=== PATIENT | female | born 1980 | race Two or more races ===

== ENCOUNTER 2022-10-09 10:29 | Outpatient (OUT) | payer BC, SELFPAY ==
--- NOTE | 2022-10-09 10:33 | XR_ITS ---
The [address] [address] Patient Name: AJ RODRÍGUEZ MRN: [id number] date: 1980 Sex: F Assigned Patient Location: [facility] Current Patient Location: Accession/Order Number: [id number] Exam Date: 10/09/2022 10:50 Report Date: 10/10/2022 00:38 At the request of: DEAN GIL Procedure: XR abdomen 1V EXAM: PLAIN FILM OF THE ABDOMEN HISTORY: Abdominal pain. COMPARISON: None. TECHNIQUE: 2 views of the abdomen/pelvis submitted for review. FINDINGS: Lines and Tubes: Clips are seen in the right upper quadrant. Free air: None. The bowel gas pattern is nonobstructive. There are no abnormal calcifications. However, evaluation of the renal shadows is limited due to overlying bowel gas. No portal venous air. Osseous structures do not demonstrate any acute abnormality. XR/XR abdomen 1V IMPRESSION: 1. Nonobstructive bowel gas pattern. 2. Moderate retention of stool. Electronically authenticated by: JANEE HILTON Date: 10/10/2022 00:38
== END 2022-10-09 10:30 | disposition home or self-care (01) ==
LOC: RAD 10:30
PROVIDERS: PCP Family Medicine; Visit Provider Urology
DX: N20.1 Calculus of ureter (principal)
CPT/HCPCS: 74018

== ENCOUNTER 2022-10-20 11:50 | Outpatient (OUT) | payer BC, SELFPAY ==
--- NOTE | 2022-10-20 12:00 | XR_ITS ---
[address] [address] Patient Name: AJ RODRÍGUEZ MRN: [id number] date: 1980 Sex: F Assigned Patient Location: [facility] Current Patient Location: Accession/Order Number: [id number] Exam Date: 10/20/2022 12:05 Report Date: 10/22/2022 07:08 At the request of: DEAN GIL Procedure: XR abdomen 1V Exam: Radiographs: XR abdomen 1V Reason for exam: Kidney Stone Comparison: CT scan dated 04/11/2022 XR/XR abdomen 1V IMPRESSION: No radiographically evident renal, ureteral or bladder calculi. Cholecystectomy. No gas-filled dilated loops of small bowel or colon. No fecal impaction. No gaseous dilation of the stomach. Remainder unremarkable. Electronically authenticated by: OCTAVIO LOPEZ Date: 10/22/2022 07:08
== END 2022-10-20 11:51 | disposition home or self-care (01) ==
LOC: RAD 11:52
PROVIDERS: PCP Family Medicine; Visit Provider Urology
DX: N20.0 Calculus of kidney (principal)
CPT/HCPCS: 74018

== ENCOUNTER 2022-11-03 20:18 | Emergency (ER) | payer BC, SELFPAY ==
[2022-11-03] VITALS (30 sets, daily range): BP systolic 124–170; BP diastolic 76–110; PULSE 63–84; RESP 12–24; TEMP 36.8; O2SAT 97–100; BMI 36.6
--- NOTE | 2022-11-03 20:34 | ECG_ITS ---
The [facility] Test Date: 2022-11-03 Pat Name: AJ RODRÍGUEZ Department: Room: - Gender: Female Benefit Director: : 1980 Requested By: CHAKA CHAIDEZ Order Number: [id number] Reading MD: LEE MCCULLOUGH Measurements Intervals [place] Rate: 75 P: 61 ND: 180 QRS: 71 QRSD: 88 T: 45 QT: 396 QTc: 424 Interpretive Statements 1100 Sinus rhythm 9150 abnormal ECG No previous ECG available for comparison Electronically Signed On 11-04-2022 11:08:46 EDT by LEE MCCULLOUGH
--- NOTE | 2022-11-03 20:35 | ED_ITS ---
Documented by User: EV Escalante 11/03/22 22:10 HPI - Chest Pain General Chief Complaint: Chest Pain Stated Complaint: chest pain Time Seen by Provider: 11/03/22 20:26 Source: patient Mode of arrival: walk-in Limitations: no limitations History of Present Illness HPI narrative: patient is a 42-year-old female presents the emergency department for the evaluation of chest pain that began four hours ago at rest. She states she had a history of myocardial infarction seven years ago, she had a cardiac catheterization at that time which was unremarkable and that her one-year foll ow-up with her multiple drum sander helper it was thought that her symptoms were due to energy drinks or stress. She does not have any stents, she was not found to have any blockages in the heart. She does not follow regularly with cardiology and she was cleared by the multiple drum sander helper. She takes medication for type 2 diabetes, high cholesterol. No medications taken prior to arrival. She states that she developed pain that she describes as a pressure in the anterior chest with radiation to the left posterior shoulder and left arm. Pain is not worse with movement. She denies any injuries or traumas. She states it is hard for her to breathe because of the pressure in her chest but she does not feel winded. She has had no fevers, chills, cough, congestion, peripheral edema. No abdominal pain, vomiting, diarrhea. Risk Factors Coronary artery disease risk factors: diabetes and hyperlipidemia Related Data Home Medications Medication Instructions Recorded Confirmed buspirone 7.5 mg tablet 7.5 mg PO BID 11/03/22 11/03/22 cholecalciferol (vitamin D3) 125 5,000 unit PO DAILY 11/03/22 11/03/22 mcg (5,000 unit) capsule levothyroxine 125 mcg tablet 250 mcg PO DAILY 11/03/22 11/03/22 metformin 500 mg tablet 500 mg PO DAILY 11/03/22 11/03/22 rosuvastatin 10 mg tablet 10 mg PO DAILY 11/03/22 11/03/22 semaglutide 1 mg/dose (4 mg/3 mL) 2 mg subcut .WEEKLY 11/03/22 11/03/22 subcutaneous pen injector (Ozempic) Allergies Allergy/AdvReac Type Severity Reaction Status Date / Time Penicillins Allergy Severe THROAT Verified 11/03/22 20:27 CLOSES Review of Systems ROS Constitutional Denies: fever or chills Cardiovascular Reports: chest pain Respiratory Denies: shortness of breath or cough Gastrointestinal Denies: abdominal pain, nausea or vomiting Musculoskeletal Reports: back pain Integumentary/Breast Denies: rash Neurological Reports: headache PFSH PFSH Social History Smoking status: Current every day smoker Exam Narrative Exam Narrative: Gen.: Awake, alert, in no distress Head: Normocephalic, atraumatic ENT: Moist mucous membranes Respiratory: No respiratory distress, lungs clear bilaterally Cardio: Regular rate and rhythm Gastrointestinal: Abdomen is soft, nondistended and nontender to palpation Extremities: Moves extremities equally, no pedal edema Psych: Normal mood and affect Neuro: No focal neuro deficit Skin: Warm, dry, intact Constitutional Vital Signs, click to edit/add: Last Vital Signs Temp 98.2 F 11/03/22 20:22 Pulse 68 11/03/22 23:50 Resp 14 11/03/22 23:50 BP 143/79 H 11/03/22 23:31 Pulse Ox 98 11/03/22 23:50 Course Vital Signs Vital signs: Vital Signs Temperature 98.2 F 11/03/22 20:22 Pulse Rate 79 11/03/22 20:22 Respiratory Rate 16 11/03/22 20:22 Blood Pressure 167/110 H 11/03/22 20:22 Pulse Oximetry 97 11/03/22 20:22 Temperature 98.2 F 11/03/22 20:22 Pulse Rate 68 11/03/22 23:50 Respiratory Rate 14 11/03/22 23:50 Blood Pressure 143/79 H 11/03/22 23:31 Pulse Oximetry 98 11/03/22 23:50 MDM - Chest Pain MDM Narrative Medical decision making narrative: 2210: EKG, lab studies including d-dimer and troponin are unremarkable. Chest x- ray was obtained. Patient treated with aspirin, she declined additional medication for pain. Repeat troponin is pending at this time and case turned over to attending physician for disposition. Heart score is a three. Medical Records Data Attestation: I reviewed the patient's medical records. Lab Data Attestation: I reviewed the patient's lab results. Labs: Lab Results 11/03/22 11/03/22 Range/Units 20:30 22:43 WBC 9.4 (4.0-11.0) 10^3/uL RBC 5.03 (4.20-5.40) 10^6/uL Hgb 15.2 (12.0-16.0) g/dL Hct 42.8 (36.0-48.0) % MCV 85.1 (81.0-99.0) fL MCH 30.2 (26.7-34.0) pg MCHC 35.5 H (29.9-35.2) g/dL RDW 12.6 (11.0-15.0) % Plt Count 286 (150-450) 10^3/uL MPV 8.7 L (9.5-13.5) fL Neut % (Auto) 59.8 (43.0-75.0) % Lymph % (Auto) 32.0 (20.5-60.0) % [place] % (Auto) 6.2 (1.7-12.0) % Eos % (Auto) 1.1 (0.9-7.0) % Baso % (Auto) 0.6 (0.2-2.0) % Neut # (Auto) 5.6 (1.4-6.5) 10^3/uL Lymph # (Auto) 3.0 (1.2-3.8) 10^3/uL [place] # (Auto) 0.6 (0.3-0.8) 10^3/uL Eos # (Auto) 0.1 (0.0-0.7) 10^3/uL Baso # (Auto) 0.1 (0.0-0.1) 10^3/uL Abs Immat Gran (auto) 0.03 (0.00-0.03) 10^3/uL Imm/Tot Granulo (auto) 0.3 (0.0-0.5) % PT 11.1 (9.0-11.6) sec INR 1.05 APTT 32.2 (22.3-36.2) sec D-Dimer 0.20 (<=0.59) mg/L FEU Sodium 130 L (136-145) mmol/L Potassium 3.0 L (3.5-5.1) mmol/L Chloride 100 (98-107) mmol/L Carbon Dioxide 27.2 (21.0-32.0) mmol/L Anion Gap 5.8 BUN 10.0 (7.0-18.0) mg/dL Creatinine 0.84 (0.55-1.02) mg/dL Est GFR ( Amer) >60 (>=60) Est GFR (Non-Af Amer) >60 (>=60) BUN/Creatinine Ratio 11.9 Glucose 84 (74-106) mg/dL Calcium 8.9 (8.5-10.1) mg/dL Total Bilirubin 0.9 (0.2-1.0) mg/dL AST 19 (15-37) U/L ALT 28 (14-59) U/L Alkaline Phosphatase 84 (46-116) U/L Total Creatine Kinase 262 H (26-192) U/L CK-MB (CK-2) 3.00 (<=3.60) ng/mL Troponin I High Sens 5.9 5.4 (4.0-51.3) pg/mL NT-Pro-B Natriuret Pep 25.0 (<=450.0) pg/mL Total Protein 8.2 (6.4-8.2) g/dL Albumin 4.4 (3.4-5.0) g/dL Globulin 3.8 g/dL Albumin/Globulin Ratio 1.2 Lipase 204.0 (73.0-393.0) U/L ECG Data Attestation: I personally reviewed and interpreted this ECG as follows: (normal sinus rhythm at a rate of seventy-five, no acute ST elevation or ectopy. EKG reviewed by attending physician) ECG interpretation date: 11/03/22 ECG interpretation time: 20:42 Heart Score History: Moderatly Suspicious ECG: Normal Age: <45 years Risk Factors: >3 Risk Factors/ HX of CAD:2 Troponin: <Normal Limit Total Heart Score Recommendations & Risks:: 3 Discharge Plan Discharge Chief Complaint: Chest Pain Clinical Impression: Chest pain Patient Disposition: Home, Self-Care Time of Disposition Decision: 00:04 Condition: Good Mode of Transportation: Private Vehicle Prescriptions / Home Meds: No Action buspirone 7.5 mg tablet 7.5 mg PO BID cholecalciferol (vitamin D3) 125 mcg (5,000 unit) capsule 5,000 unit PO DAILY levothyroxine 125 mcg tablet 250 mcg PO DAILY metformin 500 mg tablet 500 mg PO DAILY rosuvastatin 10 mg tablet 10 mg PO DAILY Ozempic 1 mg/dose (4 mg/3 mL) pen injector 2 mg SUBCUT .WEEKLY Instructions: Chest Pain (ED) Stand Alone Forms: Portal Instructions Referrals: CHAKA CHAIDEZ [Primary Care Provider] - 1 week Discharge Date/Time: 11/04/22 00:22 Documented by User: Ros Castillo MD 11/04/22 03:06 HPI - Chest Pain General Chief Complaint: Chest Pain Stated Complaint: chest pain Time Seen by Provider: 11/03/22 20:26 Related Data Home Medications Medication Instructions Recorded Confirmed buspirone 7.5 mg tablet 7.5 mg PO BID 11/03/22 11/03/22 cholecalciferol (vitamin D3) 125 5,000 unit PO DAILY 11/03/22 11/03/22 mcg (5,000 unit) capsule levothyroxine 125 mcg tablet 250 mcg PO DAILY 11/03/22 11/03/22 metformin 500 mg tablet 500 mg PO DAILY 11/03/22 11/03/22 rosuvastatin 10 mg tablet 10 mg PO DAILY 11/03/22 11/03/22 semaglutide 1 mg/dose (4 mg/3 mL) 2 mg subcut .WEEKLY 11/03/22 11/03/22 subcutaneous pen injector (Ozempic) Allergies Allergy/AdvReac Type Severity Reaction Status Date / Time Penicillins Allergy Severe THROAT Verified 11/03/22 20:27 CLOSES PFSH PFS Social History Smoking status: Current every day smoker Exam Constitutional Vital Signs, click to edit/add: Last Vital Signs Temp 98.2 F 11/03/22 20:22 Pulse 68 11/03/22 23:50 Resp 14 11/03/22 23:50 BP 143/79 H 11/03/22 23:31 Pulse Ox 98 11/03/22 23:50 Course Vital Signs Vital signs: Vital Signs Temperature 98.2 F 11/03/22 20:22 Pulse Rate 79 11/03/22 20:22 Respiratory Rate 16 11/03/22 20:22 Blood Pressure 167/110 H 11/03/22 20:22 Pulse Oximetry 97 11/03/22 20:22 Temperature 98.2 F 11/03/22 20:22 Pulse Rate 68 11/03/22 23:50 Respiratory Rate 14 11/03/22 23:50 Blood Pressure 143/79 H 11/03/22 23:31 Pulse Oximetry 98 11/03/22 23:50 MDM - Chest Pain MDM Narrative Medical decision making narrative: 2209: EKG, lab studies including d-dimer and troponin are unremarkable. Chest x- ray was obtained. Patient treated with aspirin, she declined additional medication for pain. Repeat troponin is pending at this time and case turned over to attending physician for disposition. Heart score is a two. Attending physician attestation I have seen and evaluated this patient. I have reviewed the mid-level provider?s documentation medical decision making and treatment plan. I agree with the mid- level provider?s assessment, and plan. Patient's 2nd troponin does not show at delta. The patient's heart score is 2. Patient had heart catheterization last year and no stents were placed. She was told her troponin was probably elevated compared to spasm. Patient states she is pain-free and feeling better. At this time the patient is without objective evidence of an acute process requiring hospitalization or inpatient management. The patient has remained hemodynamically stable. No additional indication for emergent studies at this time. I answered all questions. Discussed discharge instructions including standard anticipatory guidance and what should prompt a return to the emergency department, including if they get worse are not getting better or develops any new or concerning symptoms. I've given them specific time frame in which to follow-up, and who to follow-up with. The patient demonstrates understanding. Patient is nontoxic and stable for discharge with outpatient follow-up. This note was created with the assistance of a speech recognition program. Although the intention is to generate documents that actually reflects the content of the visit, no guarantees can be provided that every mistake has been identified and corrected by editing. Lab Data Labs: Lab Results 11/03/22 11/03/22 Range/Units 20:30 22:43 WBC 9.4 (4.0-11.0) 10^3/uL RBC 5.03 (4.20-5.40) 10^6/uL Hgb 15.2 (12.0-16.0) g/dL Hct 42.8 (36.0-48.0) % MCV 85.1 (81.0-99.0) fL MCH 30.2 (26.7-34.0) pg MCHC 35.5 H (29.9-35.2) g/dL RDW 12.6 (11.0-15.0) % Plt Count 286 (150-450) 10^3/uL MPV 8.7 L (9.5-13.5) fL Neut % (Auto) 59.8 (43.0-75.0) % Lymph % (Auto) 32.0 (20.5-60.0) % [place] % (Auto) 6.2 (1.7-12.0) % Eos % (Auto) 1.1 (0.9-7.0) % Baso % (Auto) 0.6 (0.2-2.0) % Neut # (Auto) 5.6 (1.4-6.5) 10^3/uL Lymph # (Auto) 3.0 (1.2-3.8) 10^3/uL [place] # (Auto) 0.6 (0.3-0.8) 10^3/uL Eos # (Auto) 0.1 (0.0-0.7) 10^3/uL Baso # (Auto) 0.1 (0.0-0.1) 10^3/uL Abs Immat Gran (auto) 0.03 (0.00-0.03) 10^3/uL Imm/Tot Granulo (auto) 0.3 (0.0-0.5) % PT 11.1 (9.0-11.6) sec INR 1.05 APTT 32.2 (22.3-36.2) sec D-Dimer 0.20 (<=0.59) mg/L FEU Sodium 130 L (136-145) mmol/L Potassium 3.0 L (3.5-5.1) mmol/L Chloride 100 (98-107) mmol/L Carbon Dioxide 27.2 (21.0-32.0) mmol/L Anion Gap 5.8 BUN 10.0 (7.0-18.0) mg/dL Creatinine 0.84 (0.55-1.02) mg/dL Est GFR ( Amer) >60 (>=60) Est GFR (Non-Af Amer) >60 (>=60) BUN/Creatinine Ratio 11.9 Glucose 84 (74-106) mg/dL Calcium 8.9 (8.5-10.1) mg/dL Total Bilirubin 0.9 (0.2-1.0) mg/dL AST 19 (15-37) U/L ALT 28 (14-59) U/L Alkaline Phosphatase 84 (46-116) U/L Total Creatine Kinase 262 H (26-192) U/L CK-MB (CK-2) 3.00 (<=3.60) ng/mL Troponin I High Sens 5.9 5.4 (4.0-51.3) pg/mL NT-Pro-B Natriuret Pep 25.0 (<=450.0) pg/mL Total Protein 8.2 (6.4-8.2) g/dL Albumin 4.4 (3.4-5.0) g/dL Globulin 3.8 g/dL Albumin/Globulin Ratio 1.2 Lipase 204.0 (73.0-393.0) U/L Heart Score History: Slightly/Non-Suspicious Total Heart Score Recommendations & Risks:: 2 Discharge Plan Discharge Chief Complaint: Chest Pain Clinical Impression: Chest pain Patient Disposition: Home, Self-Care Time of Disposition Decision: 00:04 Condition: Good Mode of Transportation: Private Vehicle Prescriptions / Home Meds: No Action buspirone 7.5 mg tablet 7.5 mg PO BID cholecalciferol (vitamin D3) 125 mcg (5,000 unit) capsule 5,000 unit PO DAILY levothyroxine 125 mcg tablet 250 mcg PO DAILY metformin 500 mg tablet 500 mg PO DAILY rosuvastatin 10 mg tablet 10 mg PO DAILY Ozempic 1 mg/dose (4 mg/3 mL) pen injector 2 mg SUBCUT .WEEKLY Instructions: Chest Pain (ED) Stand Alone Forms: Portal Instructions Referrals: CHAKA CHAIDEZ [Primary Care Provider] - 1 week Discharge Date/Time: 11/04/22 00:22
[2022-11-03 20:43] LABS: Basophils Absolute Auto 0.1 10^3/uL (0.0-0.1); Basophils Percent Auto 0.6 % (0.2-2.0); Eosinophils Absolute Auto 0.1 10^3/uL (0.0-0.7); Eosinophils Percent Auto 1.1 % (0.9-7.0); Hematocrit 42.8 % (36.0-48.0); Hemoglobin 15.2 g/dL (12.0-16.0); Immature Granulocytes Abs Auto 0.03 10^3/uL (0.00-0.03); Immature Granulocytes Pct Auto 0.3 % (0.0-0.5); Mean Corpuscular HGB Conc 35.5 g/dL (29.9-35.2); Mean Corpuscular Hemoglobin 30.2 pg (26.7-34.0); Mean Corpuscular Volume 85.1 fL (81.0-99.0); Mean Platelet Volume 8.7 fL (9.5-13.5); Monocytes Absolute Auto 0.6 10^3/uL (0.3-0.8); Monocytes Percent Auto 6.2 % (1.7-12.0); Neutrophils Absolute Auto 5.6 10^3/uL (1.4-6.5); Neutrophils Percent Auto 59.8 % (43.0-75.0); Platelet Count 286 10^3/uL (150-450); Red Blood Count 5.03 10^6/uL (4.20-5.40); Red Cell Distribution Width 12.6 % (11.0-15.0); White Blood Count 9.4 10^3/uL (4.0-11.0)
[2022-11-03] MEDS: ASPIRIN 81 MG TAB.CHEW 162 MG PO (20:49)
[2022-11-03 20:59] LABS: INR 1.05; Partial Thromboplastin Time 32.2 sec (22.3-36.2); Prothrombin Time 11.1 sec (9.0-11.6)
[2022-11-03 21:05] LABS: Alanine Aminotransferase 28 U/L (14-59); Albumin Globulin Ratio 1.2; Albumin Level 4.4 g/dL (3.4-5.0); Alkaline Phosphatase 84 U/L (46-116); Anion Gap 5.8; Aspartate Amino Transferase 19 U/L (15-37); BUN Creatinine Ratio 11.9; Bilirubin Total 0.9 mg/dL (0.2-1.0); Calcium 8.9 mg/dL (8.5-10.1); Carbon Dioxide 27.2 mmol/L (21.0-32.0); Chloride 100 mmol/L (98-107); Estimated GFR (African America >60 (>=60); Estimated GFR (Non-African Ame >60 (>=60); Globulin 3.8 g/dL; Glucose 84 mg/dL (74-106); Sodium 130 mmol/L (136-145); Total Protein 8.2 g/dL (6.4-8.2); Troponin I High Sensitivity 5.9 pg/mL (4.0-51.3)
--- NOTE | 2022-11-03 21:21 | XR_ITS ---
The [address] [address] Patient Name: AJ RODRÍGUEZ MRN: [id number] date: 1980 Sex: F Assigned Patient Location: ER Current Patient Location: ED.MAIN Accession/Order Number: [id number] Exam Date: 11/03/2022 21:55 Report Date: 11/03/2022 22:39 At the request of: ANURAG COHEN Procedure: XR chest 1V EXAM: XR chest 1V HISTORY: Chest pain COMPARISON: None. TECHNIQUE: AP portable study FINDINGS: The cardiovascular silhouette is normal. Lung zhao are well-expanded and clear. Pleural spaces are clear. The bony structures are unremarkable. XR/XR chest 1V IMPRESSION: No evidence for acute cardiopulmonary disease. Electronically authenticated by: Samia HENNESSY Date: 11/03/2022 22:39
[2022-11-03] MEDS: POTASSIUM CHLORIDE 10 MEQ ER TABLET 40 MEQ PO (22:09)
[2022-11-03 23:28] LABS: Creatine Kinase 262 U/L (26-192); Troponin I High Sensitivity 5.4 pg/mL (4.0-51.3)
== END 2022-11-04 00:22 | disposition home or self-care (01) ==
PROVIDERS: Physician Assistant; Emergency Provider Emergency Medicine; PCP Family Medicine
DX: R07.9 Chest pain, unspecified (principal); I25.2 Old myocardial infarction; E11.9 Type 2 diabetes mellitus without complications; E78.00 Pure hypercholesterolemia, unspecified; Z79.899 Other long term (current) drug therapy; Z79.890 Hormone replacement therapy; Z79.84 Long term (current) use of oral hypoglycemic drugs; F17.210 Nicotine dependence, cigarettes, uncomplicated
CPT/HCPCS: 36415; 71045; 80053; 82550; 82553; 83690; 83880; 84484; 85025; 85378; 85610; 85730; 93005; 99285

== ENCOUNTER 2023-10-10 19:42 | Outpatient (OUT) | payer BC, SELFPAY ==
--- NOTE | 2023-10-10 | XR_ITS ---
The [address] [address] Patient Name: AJ RODRÍGUEZ MRN: [id number] date: 1980 Sex: F Assigned Patient Location: RAD Current Patient Location: [facility] Accession/Order Number: [id number] Exam Date: 10/10/2023 20:05 Report Date: 10/10/2023 22:17 At the request of: DEAN GIL Procedure: XR abdomen 1V XR abdomen 1V, 10/10/2023 7:05 PM CDT: History: Kindney Stone N20.0. Comparison: 10/20/2012 Technique: 1 view abdomen Findings: The bowel gas pattern is nonobstructive. There is no evidence of free intra-abdominal air. There is no evidence of organomegaly or abnormal intra-abdominal calcifications. The gallbladder is surgically absent. XR/XR abdomen 1V Impression: Nonobstructive bowel gas pattern without evidence of free air. Electronically authenticated by: ROMELIA HERNANDEZ Date: 10/10/2023 22:17
== END 2023-10-10 19:43 | disposition home or self-care (01) ==
PROVIDERS: PCP Family Medicine; Visit Provider Urology
DX: N20.0 Calculus of kidney (principal)
CPT/HCPCS: 74018

== ENCOUNTER 2025-01-20 19:33 | Outpatient (REF) | payer BC, SELFPAY ==
--- OUTSIDE RECORDS SUMMARY | 2025-01-20 19:39 | XMS_ITS | CCD ---
Author Organization [facility] Care Team Providers Care Anesthetist Name Role Phone RITCHIE CHAIDEZ Primary Care Physician ERIN, DR MISHRA Consulting Unavailable ERIN, DR MISHRA Attending Unavailable ERIN, DR MISHRA Admitting Unavailable FURLONG, DR RITCHIE Dickson Primary Care Unavailable LALO SALTER Consulting Unavailable MORRUDI PUENTES Consulting Unavailable SHARPXAVIER Consulting Unavailable KAYLYNN, DR RTICHIE Dickson Primary Care Unavailable PAY, DR SORENSEN Admitting Unavailable PAY, DR SORENSEN Consulting Unavailable PAY, DR SORENSEN Attending Unavailable FURLOHAZEL, DR RITCHIE Dickson Primary Care Unavailable BILL GUEVARA Consulting Unavailable ISMAEL, BILL Attending Unavailable ISMAEL, BILL Admitting Unavailable KARLA RAZA Consulting Unavailable DENNIS, DR NELSON Admitting Unavailable DENNIS, DR NELSON Consulting Unavailable DENNIS, DR NELSON Attending Unavailable FURLOHAZEL, DR RITCHIE Dickson Primary Care Unavailable DEMETRIGAVIN Noel Consulting Unavailable FURLONG, DR RITCHIE Dickson Primary Care Unavailable ERIN, DR MISHRA Admitting Unavailable ERIN, DR MISHRA Consulting Unavailable ERIN, DR MISHRA Attending Unavailable FURCARLITA, DR RITCHIE Dickson Primary Care Unavailable JEFFERY, DR MORAN Admitting Unavailable JEFFERY, DR MORAN Consulting Unavailable JEFFERY, DR MORAN Attending Unavailable ERIN, DR MISHRA Consulting Unavailable ERIN, DR MISHRA Attending Unavailable ERIN, DR MISHRA Admitting Unavailable KAYLYNN, DR RITCHIE Dickson Primary Care Unavailable FURLONG, DR RITCHIE Dickson Primary Care Unavailable JEFFERY, DR MORAN Admitting Unavailable JEFFERY, DR MORAN Consulting Unavailable JEFFERY, DR MORAN Attending Unavailable GLORIA II, MARK Consulting Unavailable JUNG PORTER Consulting Unavailable KAYLYNN, DR RITCHIE Dickson Primary Care Unavailable ERIN, DR MISHRA Admitting Unavailable ERIN, DR MISHRA Consulting Unavailable ERIN, DR MISHRA Attending Unavailable JEFFERY, DR MORAN Admitting Unavailable JEFFERY, DR MORAN Consulting Unavailable FURCARLITA, DR RITCHIE Dickson Primary Care Unavailable JEFFERY, DR MORAN Attending Unavailable TYLER, DR JANE Beach Consulting Unavailable Dean GIL Attending Unavailable AMILONG, RITCHIE Dickson Referring Unavailable FURLONG, RITCHIE Dickson Primary Care Unavailable Amilong DO, Ritchie Yessi Primary Care Provider AMILONG, RITCHIE G Attending Unavailable AMILONG, RITCHIE G Referring Unavailable FURLONG, RITCHIE G Primary Care Unavailable Amilong DO, Ritchie Dickson Primary Care Provider AMILONG, RITCHIE G Attending Unavailable FURLONG, RITCHIE G Referring Unavailable FURLONG, RITCHIE G Primary Care Unavailable FURLONG, RITCHIE G Attending Unavailable FURLONG, RITCHIE G Referring Unavailable FURLONG, RITCHIE G Primary Care Unavailable Furlong DO Ritchei Yessi Primary Care Provider Allergies Allergy ClassificationReported Allergen(s)Allergy TypeDate of OnsetReaction(s) Facility (6 sources)Penicillin; Translations: [penicillin]Drug AllergyPain in throat (finding)[facility] (1 source)PenicillinsDrug allergy (disorder)[facility] (20 sources)Morphine; Translations: [MORPHINE]Drug Ioiafqa70-56-8071KjrFcvcgb Repository (20 sources)Penicillin; Translations: [PENICILLIN G]Drug Cdsufcb04-55-5139 [facility] (14 sources)rosuvastatinDrug Zjihcxg91-43-8319[facility]zl[facility] Medications Current Medications MedicationDrug Class(es)DatesSig (Normalized)Sig (Original)atorvastatin 10 mg oral tablet (1 source)HMG-CoA Reductase InhibitorStart: 53-92-4658jsef 1 tablet by mouth in the morningatorvastatin (LIPITOR) 10 mg tablet Take 1 tablet (10 mg total) by mouth in the morning. 90 tablet 3 01/12/2025 Activeblood-glucose meter (ONETOUCH ULTRA2 METER) [facility] (20 sources)blood-glucose meter (ONETOUCH ULTRA2 METER) [facility] Activeblood-glucose meter (ONETOUCH ULTRA2 METER) [facility] OneTouch Ultra2 Meter USE DIRECTED TO CHECK BLOOD SUGAR ONCE DAILY Activeblood-glucose meter (ONETOUCH ULTRA2 METER) [facility] OneTouch Ultra2 Meter USE DIRECTED TO CHECK BLOOD SUGAR ONCE DAILY 0 Activecholecalciferol 0.125 mg oral capsule (20 sources)Vitamin DStart: 80-14-5758cxlj 1 capsule by mouth once daily cholecalciferol, vitamin D3, (VITAMIN D3) 5,000 units capsule Indications: Vitamin D deficiency, unspecified TAKE 1 CAPSULE BY MOUTH EVERY DAY 90 capsule 4 05/08/2022 Activedoxycycline hyclate 100 mg oral capsule (1 source)Tetracycline-class DrugStart: 04-07-2022 End: 90-18-4136hxje 1 capsule by mouth once dailydoxycycline hyclate 100 mg Cap 100 mg = 1 cap(s), Oral, Daily, X 14 day(s), # 14 cap(s), Refills(s)0, Pharmacy: [facility]/pharmacy #[id number], 157, cm, 03/27/22 12:49:00 EST, Height/Length Dosing, 99.8, kg, 03/27/22 12:49:00 EST, Weight Dosing Start Date: 04/07/22 Stop Date: 04/21/22 Status: Ordereddulaglutide (TRULICITY) 4.5 mg/0.5 mL pen injector (17 sources)Start: 05-24-2023 End: 06-25-3338etrqvzuqwjt (TRULICITY) 4.5 mg/0.5 mL pen injector Indications: Type 2 diabetes mellitus without complication, without long-term current use of insulin ([facility]) Inject 4.5 mg under the skin every 7 days. 6 mL 1 05/24/2023 10/22/2023 Discontinued (Duplicate order)Start: 58-91-2392blawgnnbdwm (TRULICITY) 4.5 mg/0.5 mL pen injector Indications: Type 2 diabetes mellitus without complication, without long-term current use of insulin (CMS-HCC) Inject 4.5 mg under the skin every 7 days. 6 mL 1 05/24/2023 ActiveStart: 05-23-2023 End: 29-90-7820hfcnmahayxp (TRULICITY) 4.5 mg/0.5 mL pen injector Indications: Type 2 diabetes mellitus without complication, without long-term current use of insulin (CMS-HCC) Inject 4.5 mg under the skin every 7 days. 6 mL 1 05/23/2023 10/22/2023 DiscontinuedStart: 36-32-7473pxoljgklpgo (TRULICITY) 4.5 mg/0.5 mL pen injector Indications: Type 2 diabetes mellitus without complication, without long-term current use of insulin (CMS-HCC) Inject 4.5 mg under the skin every 7 days. 6 mL 1 05/23/2023 ActiveStart: 01-08-2023 End: 85-22-0745upqrzsusbkc (TRULICITY) 4.5 mg/0.5 mL pen injector Indications: Type 2 diabetes mellitus without complication, without long-term current use of insulin (CMS-HCC) Inject 4.5 mg under the skin every 7 days. 6 mL 1 01/08/2023 05/23/2023 Discontinued (Reorder)Start: 92-79-4060rfdxccnwxgt (TRULICITY) 4.5 mg/0.5 mL pen injector Indications: Type 2 diabetes mellitus without com plication, without long-term current use of insulin (CMS-HCC) Inject 4.5 mg under the skin every 7 days. 6 mL 1 01/08/2023 Activelevothyroxine sodium 0.125 mg oral tablet (20 sources)l-ThyroxineStart: 06-21-2023 End: 57-75-2498wzwfukweptzrl (SYNTHROID, LEVOTHROID) 125 MCG tablet Indications: Hypothyroidism, unspecified TAKE 1 TABLET IN THE MORNING 90 tablet 11/19/2024 ActiveStart: 01-10-2023 End: 28-69-7473sxtdslboxinpa (SYNTHROID, LEVOTHROID) 125 MCG tablet Indications: Hypothyroidism, unspecified Take 1 tablet Mondays, Wednesdays and Fridays. Take 2 tablets all other days 01/10/2023 06/19/2023 Discontinued (Reorder)Start: 41-48-2315azddjgfyrecpe 250 mcg, Daily Start Date: 03/15/22 Status: Ordered metFORMIN hydrochloride 500 mg oral tablet (20 sources)BiguanideStart: 10-29-2022 End: 97-63-6043aerPESMVX (GLUCOPHAGE) 500 mg tablet Indications: Type 2 diabetes mellitus without complications (CMS-HCC) TAKE 1 TABLET EVERY MORNING 90 tablet 1 04/07/2024 ActiveStart: 85-57-9657fpjj 1 tablet by mouth twice dailymetformin 500 mg Tab 500 mg = 1 tab(s), Oral, BID Start Date: 03/15/22 Status: Ordered olmesartan medoxomil 5 mg oral tablet (20 sources)Angiotensin 2 Receptor BlockerStart: 01-08-2023 End: 10-76-7893pqmqotykyy (BENICAR) 5 mg tablet Indications: Type 2 diabetes mellitus without complication, without long-term current use of insulin ([facility]) , Essential hypertension TAKE 1 TABLET IN THE MORNING 90 tablet 1 04/07/2024 ActiveStart: 83-28-4602hxgn 20 mg by mouth once dailyolmesartan 20 mg, Oral, Daily Start Date: 03/15/22 Status: Orderedphentermine hydrochloride 37.5 mg oral capsule (2 sources)Sympathomimetic Amine AnorecticStart: 31-86-7834lxxs 38-38.9 capsules by mouth once daily before breakfastphentermine 37.5 MG capsule Indications: Class 2 severe obesity due to excess calories with seriouscomorbidity and body mass index (BMI) of 38.0 to 38.9 in adult Take 1 capsule (37.5 mg total) by татьяна th every morning before breakfast. 30 capsule 01/05/2025 ActiveVitamin D (2 sources)Start: 37-41-9067Nzrgkql D International_Unit, Oral, qWeek Start Date: 10/09/22 Status: Ordered Completed/Discontinued Medications MedicationDrug Class(es)DatesSig (Normalized)Sig (Original)ALPRAZolam 0.5 mg oral tablet (17 sources)BenzodiazepineStart: 01-08-2023 End: 53-83-5316wcnq 1 tablet by mouth three times daily as needed for anxiety ALPRAZolam (XANAX) 0.5 mg tablet Indications: Panic attack Take 1 tablet (0.5 mg total) by mouth 3 (three) times a day as needed for anxiety (panic attack). 30 tablet 01/08/2023 12/20/2023 Discontinued (Therapy completed)busPIRone hydrochloride 7.5 mg oral tablet (20 sources)Start: 01-08-2023 End: 27-99-7917mtsPNPnsi (BUSPAR) 7.5 mg tablet Indications: Anxiety TAKE 1 TABLET THREE TIMES A DAY (NEW DOSE) 270 tablet 1 04/07/2024 01/05/2025 Discontinued (Therapy completed)rosuvastatin calcium 10 mg oral tablet (20 sources)HMG-CoA Reductase InhibitorStart: 11-18-2023 End: 15-23-1269tescrvaywkcz (CRESTOR) 10 mg tablet Indications: Mixed hyperlipidemia TAKE 1 TABLET EVERY MORNING 90 tablet 1 07/13/2024 01/05/2025 Discontinued (Patient Stopped On Own)Start: 03-15-2022 End: 43-99-1394csaz 1 tablet by mouth once daily in the morningrosuvastatin (CRESTOR) 10 mg tablet Indications: Mixed hyperlipidemia Take 1 tablet (10 mg total) by mouth every morning. 90 tablet 11/13/2023 11/16/2023 Discontinued (Reorder)TRULICITY 4.5 mg/0.5 mL pen injector (17 sources)Start: 10-22-2023 End: 33-94-2185OIWAFLKOV 4.5 mg/0.5 mL pen injector Indications: Type 2 diabetes mellitus without complication, without long-term current use of insulin ([facility]) INJECT 4.5 MG UNDER THE SKIN EVERY 7 DAYS 6 mL 3 10/22/2023 01/05/2025 Discontinued (Patient Stopped On Own)Start: 92-14-5918LQQKNJPUV 4.5 mg/0.5 mL pen injector Indications: Type 2 diabetes mellitus without complication, without long-term current use of insulin (CMS-HCC) INJECT 4.5 MG UNDER THE SKIN EVERY 7 DAYS 6 mL 3 10/22/2023 Active Problems Active Problems Problem ClassificationProblemDateDocumented DateEpisodic/ChronicAbdominal pain (5 sources)Unspecified abdominal pain; Translations: [Pelvic and perineal pain] Onset: 09-67-4035MvojgymgIjqos myocardial infarction (20 sources)Myocardial infarction; Translations: [Acute non-ST segment elevation myocardial infarction]Onset: 243668-12-1174IvvefatSomnhjg disorders (20 sources)Anxiety disorder, unspecified; Translations: [Anxiety]Onset: 830571-29-4778ZhyoikxRtkgiaug atherosclerosis and other heart disease (1 source)Old myocardial infarction; Translations: [OLD MYOCARDIAL INFARCTION] Onset: 00-75-8704NtqzyloChbcsntb mellitus without complication (20 sources)Type 2 diabetes mellitus; Translations: [Type 2 diabetes mellitus without complications]Onset: 807994-11-5676UcisdxwTqwbnzfqw of lipid metabolism (20 sources)Hypercholesterolemia; Translations: [Pure hypercholesterolemia, unspecified]Onset: 340986-20-4794ElcfdxuDlhylayvs hypertension (20 sources)Hypertensive disorder; Translations: [Essential (primary) hypertension]Onset: 217660-17-2359EtugtgqGxhcmulneazgj symptoms and ill- defined conditions (5 sources)Microscopic hematuria; Translations: [Asymptomatic microscopic hematuria]Onset: 05-33-9352ZdvxxdqiIvpgfmmyjrkdm and screening for infectious disease (6 sources)Encounter for screening for human papillomavirus (HPV); Translations: [Needs influenza immunization]Onset: 222520-34-6003RogkvzzyRlccxrewec disorders (1 source)Hormone replacement therapy; Translations: [HORMONE REPLACEMENT THERAPY]Onset: 60-44-1366BxhrcvckCvwxcfuqt disorders (3 sources)Dysmenorrhea, unspecified; Translations: [Ovulation bleeding]Onset: 01-63-9201NahpptnGpdoagxtgoi deficiencies (20 sources)Vitamin D deficiency, unspecified; Translations: [Vitamin D deficiency]Onset: 705779-41-7185GgjlbqrIzgmf aftercare (1 source)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; Translations: [PRISON USE ORAL HYPOGLYCEMIC DX]Onset: 52-45-8490XxvufpnsYlhve aftercare (1 source)Other nursing home (current) drug therapy; Translations: [OTH PRISON CURRENT DRUG THERAPY]Onset: 79-45-7344UpbuvzegIguph diseases of kidney and ureters (1 source)Unspecified hydronephrosis; Translations: [UNSPECIFIED HYDRONEPHROSIS] Onset: 30-34-8761ZkgjynaoUdfli diseases of kidney and ureters (1 source)Hydronephrosis with renal and ureteral calculous obstruction; Translations: [HYDRONPHROS RENL AND URETRL CALCUL OBST]Onset: 19-87-6349Hitfcuvt Other female genital disorders (4 sources)Unspecified dyspareunia; Translations: [UNSPECIFIED DYSPAREUNIA] Onset: 95-29-0854NjhthghHuxwu nervous system disorders (1 source)Pain in limb - multiple; Translations: [Paresthesia of skin]01-05-2025 EpisodicOther nutritional; endocrine; and metabolic disorders (10 sources)Obesity; Translations: [Obesity, unspecified]75-74-8617YvndxdkKtxqr nutritional; endocrine; and metabolic disorders (1 source)Obesity caused by energy imbalance; Translations: [Class 1 obesity due to excess calories with serious comorbidity and body mass index (BMI) of 34.0 to 34.9 in adult]44-88-7464RqgjbrjRwtvm nutritional; endocrine; and metabolic disorders (1 source)Body mass index (BMI) 38.0-38.9, adult; Translations: [Body mass index (BMI) 38.0-38.9, adult]Onset: 04-11-1769TkwudvlKeehx nutritional; endocrine; and metabolic disorders (2 sources)Severe obesity; Translations: [Class 2 severe obesity due to excess calories with serious comorbidity and body mass index (BMI) of 38.0 to 38.9 in adult]01-63-0575ElqymuqBqjco screening for suspected conditions (not mental disorders or infectious disease) (6 sources)Encounter for screening for malignant neoplasm of cervix; Translations: [Patient encounter status]Onset: 53-21-4669OqbmrbeySjdnwdwz codes; unclassified (20 sources)Sleep apnea; Translations: [Sleep apnea, unspecified]Onset: 143433-46-2436ZhxhsklAixvzvxj codes; unclassified (1 source)Other specified postprocedural states; Translations: [OTH SPECIFIED POSTPROCEDURAL STATES]Onset: 17-35-8374LrjifqihScionoyi codes; unclassified (1 source)Acquired absence of other specified parts of digestive tract; Translations: [ACQ ABSENCE OTH PART DIGESTV TRACT]Onset: 93-31-3198Cakexefp Residual codes; unclassified (1 source)Acquired absence of both cervix and uterus; Translations: [ACQUIRED ABSENCE BOTH CERVIX AND UTERUS]Onset: 14-62-9489UqvxdlhsHqaansabs and history of mental health and substance abuse codes (1 source)Personal history of nicotine dependence; Translations: [PERSONAL HISTORY OF NICOTINE DEPEND]Onset: 46-90-6647AtvixxpnPrbrbcrrd-related disorders (1 source)Nicotine dependence, cigarettes, uncomplicated; Translations: [NICOTINE DEPEND CIGARETTES UNCOMP]Onset: 78-03-0591FtazwwwKqeptwd disorders (20 sources)Hypothyroidism; Translations: [Hypothyroidism, unspecified]Onset: 930782-11-7181LsdzsnqRmkuedxkbexs (5 sources)Asymptomatic microscopic dbvyxyrdj14-78-9781Voqvzemyyuad (1 source)CONTACT W/AND (SUSP) EXPOS COVID-19; Translations: [CONTACT W/AND (SUSP) EXPOS COVID-19]Onset: 59-72-1101Brfxhdvyrwfr (1 source)Obesity, class 2; Translations: [Obesity, class 2]Onset: 12-20-2023 Unclassified (1 source)Annual ExamOnset: 01-05-2025 Past or Other Problems Problem ClassificationProblemDateDocumented DateEpisodic/ChronicBiliary tract disease (20 sources)Gallstone; Translations: [Calculus of gallbladder without cholecystitis without obstruction]Onset: 969668-23-0722XqxdidwyCxkhxnyo of urinary tract (20 sources)Kidney stone; Translations: [Calculus of kidney]Onset: 03-15-2022 EpisodicContraceptive and procreative management (1 source)Tubal ligation status; Translations: [TUBAL LIGATION STATUS]Onset: 30-12-1105BavjkyeeRxma disorders (20 sources)Depressive disorder; Translations: [Depression]Onset: 07-05-2022 Resolved: 849073-01-9341HlhvzlcAift disorders (20 sources)Mood disordersOnset: 12-20-2023 Resolved: Other connective tissue disease (1 source)Pain in lower limbOnset: 92-84-7096ZpnywzwwSkmaq female genital disorders (1 source)Other specified noninflammatory disorders of vagina; Translations: [OTH SPEC NONINFLAMMATORY D/O VAGINA]Onset: 52-31-3161XvmtyfcgDtgpd inflammatory condition of skin (1 source)Pruritus, unspecified; Translations: [PRURITUS UNSPECIFIED]Onset: 50-55-9780TyhzcnqySpqpi nutritional; endocrine; and metabolic disorders (20 sources)Morbid obesity; Translations: [Morbid (severe) obesity due to excess calories]Onset: 01-02-2022 Resolved: 621499-55-2863LsphfdnYysxc skin disorders (4 sources)Rash and other nonspecific skin eruption; Translations: [RASH OTH NONSPECIFIC SKIN ERUPTION]Onset: 65-58-6777TjkaxpqfQnihiyqlkij; intervertebral disc disorders; other back problems (20 sources)Backache; Translations: [Dorsalgia, unspecified]Onset: 06-22-2015 69-57-2493FvhtkfbxRtwqlji and strains (20 sources)Anterior to posterior tear of superior glenoid labrum of right shoulder; Translations: [Superior glenoid labrum lesion of right shoulder, initial encounter]Onset: 575419-13-8474GivlbdszElvidwsf veins of lower extremity (2 sources)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) [address] [place] [address] VIRALP [Catalytic activity/Vol]72 U/QTcdpkc45-393InlOekzmj Hospital Ambulatory PPGComment on above:Performed By: #### CMP #### [facility] ([facility]) [address] [place] [address] VIRALT [Catalytic activity/Vol]24 U/LNormal<=31[facility] PPGComment on above:Performed By: #### CMP #### [facility] ([facility]) [address] [place] [address] VIRAnion gap [Moles/Vol]8 mmol/LNormal5-15[facility] Ambulatory PPGComment on above:Performed By: #### CMP #### [facility] ([facility]) [address] [place] [address] VIRAST [Catalytic activity/Vol]21 U/LNormal<=41Pro[facility] Ambulatory PPGComment on above:Performed By: #### CMP #### [facility] ([facility]) [address] [place] [address] VIRBilirubin [Mass/Vol]0.5 mg/dLNormal0.3-1.2[facility]ulatory PPGComment on above:Performed By: #### CMP #### [facility] ([facility]) [address] [place] [address] VIRCalcium [Mass/Vol]9.6 mg/dLNormal8.5-10.5[facility]ulatory PPGComment on above:Performed By: #### CMP #### [facility] ([facility]) [address] [place] [address] VIRChloride [Moles/Vol]103 mmol/DQcrfes28-422CinUsvfvj Hospital Ambulatory PPGComment on above:Performed By: #### CMP #### [facility] ([facility]) [address] [place] [address] VIRCO2 [Moles/Vol]27 mmol/QXnemmc01-43EafVtwopf Hospital Ambulatory PPGComment on above:Performed By: #### CMP #### [facility] ([facility]) [address] [place] [address] VIRCreatinine [Mass/Vol]0.57 mg/dLNormal0.40-1.00[facility] Ambulatory PPGComment on above:Result Comment: METHOD TRACEABLE TO IDMS STANDARDPerformed By: #### CMP #### [facility] ([facility]) [address] [place] [address] VIREGFR (CKD-EPI) NON-RACE DEPENDENT>^90Normal>=60ProPrem[facility] Ambulatory PPGComment on above:Result Comment: Reported eGFR is based on the CKD-EPI 2020 equation that does not use a race coefficient.Performed By: #### CMP #### [facility] ([facility]) [address] [place] [address] VIRGlucose [Mass/Vol]96 mg/nWMetpmk61-72WugFkkbqa Hospital Ambulatory PPGComment on above:Performed By: #### CMP #### [facility] ([facility]) [address] [place] [address] VIRPotassium [Moles/Vol]4.1 mmol/LNormal3.5-5.0[facility] PPGComment on above:Performed By: #### CMP #### [facility] ([facility]) [address] [place] [address] VIRProtein [Mass/Vol]7.7 g/dLNormal6.0-8.0[facility]ulatory PPGComment on above:Performed By: #### CMP #### [facility] ([facility]) [address] [place] [address] VIRSodium [Moles/Vol]138 mmol/AEiglxz904-875SexTvuilk [facility] Ambulatory PPGComment on above:Performed By: #### CMP #### [facility] ([facility]) [address] [place] [address] VIRUrea nitrogen [Mass/Vol]13 mg/dLNormal5-23[facility]ulatory PPGComment on above:Performed By: #### CMP #### [facility] ([facility]) [address] [place] [address] VIRHEMOGLOBIN A1Con 49-84-7595Fdndbmp [Mass/Vol]117 mg/dLNormal [facility] Ambulatory PPGComment on above:Performed By: #### HA1C #### [facility] ([facility]) [address] [place] [address] ZSGUaI9q (Bld) [Mass fraction]5.7 %High4.4-5.6[facility] Ambulatory PPGComment on above:Result Comment: ADA Guidelines Result HgbA1c Normal : less than 5.7 % Prediabetes : 5.7 % to 6.4 % Diabetes : > 6.4 % Use with caution in patients with abnormal hemoglobin variants as the half-life of red blood cells and in vivo glycation rates are affected.Performed By: #### HA1C #### [facility] ([facility]) [address] [place] [address] VIRLIPID PROFILEon 68-94-4030Lndjmgujuxp [Mass/Vol]286 mg/dL Voxi879-492PynKiymxs Hospital Ambulatory PPGComment on above:Order Comment: LDL (CALC) Not reported due to high TriglyceridePerformed By: #### LIPR #### [facility] ([facility]) [address] [place] [address] VIRCholesterol in HDL [Mass/Vol]53 mg/dLNormal>39[facility]ulatory PPGComment on above:Order Comment: LDL (CALC) Not reported due to high TriglycerideResult Comment: HDL <40 mg/dL - High Risk HDL > or = 40mg/dL- Desirable HDL >60 mg/dL - Negative RiskPerformed By: #### LIPR #### [facility] ([facility]) [address] [place] [address] VIRCHOLESTEROL:HDL5.4High1.0-5.0[facility]ulatory PPGComment on above:Order Comment: LDL (CALC) Not reported due to high TriglyceridePerformed By: #### LIPR #### [facility] ([facility]) [address] [place] [address] VIRTriglyceride [Mass/Vol]443 mg/oPLpgn61-619PvvMpqcuv Hospital Ambulatory PPGComment on above:Order Comment: LDL (CALC) Not reported due to high TriglyceridePerformed By: #### LIPR #### [facility] ([facility]) [address] [place] [address] VIRVERY LOW UPYYWDRCSQO19 mg/dLHigh0-30[facility] Ambulatory PPGComment on above:Order Comment: LDL (CALC) Not reported due to high TriglyceridePerformed By: #### LIPR #### [facility] ([facility]) [address] [place] [address] VIRRDLDL DIRECT LDLon 32-02-2561Baskswgvhwi in LDL [Mass/Vol] 157 mg/dLHigh<=130[facility] PPGComment on above:Result Comment: LDL <100 mg/dL - Desirable LDL 130-159 mg/dL - Borderline High Risk LDL >160 mg/dL - High RiskPerformed By: #### RDLDL #### [facility] (TT) [address] [place] [address] VIRMAMM SCREENING BILATERAL W CADon 08-58-2423NTYH SCREENING BILATERAL W CADMAMM SCREENING BILATERAL W CAD AJ RODRÍGUEZ 1980 [id number] EXAM: MAMM SCREENING BILATERAL W CAD, 06/09/2024 9:57 AM CLINICAL INDICATIONS: Screening, Encounter for screening mammogram for malignant neoplasm of breast COMPARISON: 08/25/2022 TECHNIQUE: Bilateral digital tomosynthesis MLO and CC views of the breasts were obtained, with creation of synthetic 2D views. Computer aided detection was utilized. FINDINGS: There are scattered areas of fibroglandular density. Stable bilateral breast implants. There are no suspicious masses, calcifications, or areas of architectural distortion. IMPRESSION: No mammographic evidence of malignancy. BI-RADS: BI-RADS 1 - Negative RECOMMENDATION: Routine screening mammogram in 1 year. RISK ASSESSMENT: TC Lifetime risk: 11.8%. The patient's reported personal and family medical history was used calculate their Tyrer-Cuzick lifetime risk of malignancy. Scores less than 20% are not considered high risk per ACR guidelines and patient should continue with the above recommendation. Additionally, this patient's reported personal and/or family history of cancer indicates they may benefit from a genetic counseling consultation and possible genetic testing. If patient has not already completed this evaluation, please consider placing a referral to [facility] via [facility] or . For questions regarding this, please call [phone]. The patient was offered information on genetic counseling at the time of exam. Finalized by Jack Sandoval MD on 06/10/2024 2:04 PM 1 b MAMM 1 YRNormalThe MetroHealth SystemHemoglobin A1con 92-95-2757Rhvhmux glucose Estimated from glycated hemoglobin (Bld) [Mass/Vol]100 mg/dLMarion HospitalHbA1c (Bld) [Mass fraction]5.1 %4.4 - 5.6 %[facility] Comment on above:NOTE ADA Guidelines Result HgbA1c Normal : less than 5.7 % Prediabetes : 5.7 % to 6.4 % Diabetes : > 6.4 % Use with caution in patients with abnormal hemoglobin variants as the half-life of red blood cells and in vivo glycation rates are affected. Marion HospitalCOMPREHENSIVE METABOLIC PANELon 78-50-8885Ezuetzp [Mass/Vol]4.2 g/dLNormal3.2-5.3PElyria Memorial HospitalComment on above: Performed By: #### AIXA, 11168-9, THYR, 06290-8, HA1C #### [facility] ([id number]) [address], [address] [place], [place] [address]LVZ [Catalytic activity/Vol]57 U/GObofkh64-972LjhPlwfxpTrumbull Regional Medical CenterComment on above:Performed By: #### AIXA, 10640-4, THYR, 35544-8, HA1C #### [facility] ([id number]) [address], [address] [place], [place] [address]ZLF [Catalytic activity/Vol]13 U/LNormal0-31PElyria Memorial HospitalComment on above:Performed By: #### AIXA, 28494-8, THYR, 82663-5, HA1C #### [facility] ([id number]) [address], [address] [place], [place] [address]Bhxox gap [Moles/Vol]9 mmol/LNormal5-15[facility] Comment on above:Performed By: #### AIXA, 93518-5, THYR, 64619-2, HA1C #### [facility] ([id number]) [address], [address] [place], [place] [address]PHX [Catalytic activity/Vol]17 U/LNormal0-41ProSelect [facility] HospitalComment on above:Performed By: #### CMP, 19703-5, THYR, 68125-7, HA1C #### [facility] ([id number]) [address], [address] [place], [place] [address]Powbozkwh [Mass/Vol]0.5 mg/dLNormal0.3-1.2PAdena Pike Medical Center HospitalComment on above:Performed By: #### AIXA, 56257-6, THYR, 80287-4, HA1C #### [facility] ([id number]) [address], [address] [place], [place] [address]Gtibdfc [Mass/Vol]8.9 mg/dLNormal8.5-10.5PAdena Pike Medical Center HospitalComment on above:Performed By: #### AIXA, 04576-9, THYR, 43505-2, HA1C #### [facility] ([id number]) [address], [address] [place], [place] [address]Dkwlujru [Moles/Vol]105 mmol/DVcgdtm04-922FljUqysyq [facility] HospitalComment on above:Performed By: #### AIXA, 88689-7, THYR, 61023-8, HA1C #### [facility] ([id number]) [address], [address] [place], [place] [address]KH1 [Moles/Vol]24 mmol/HTpjzvq67-89VgyOdrvga [facility] Comment on above:Performed By: #### AIXA, 99917-3, THYR, 15108-7, HA1C #### [facility] ([id number]) [address], [address] [place], [place] [address]Cnmwyouuym [Mass/Vol]0.52 mg/dLNormal0.40-1.00ProSelect [facility] HospitalComment on above:Result Comment: METHOD TRACEABLE TO IDMS STANDARD Performed By: #### AIXA, 59951-5, THYR, 00083-4, JOSAFAT #### [facility] ([id number]) [address], [address] [place], [place] [address]nAOC (CKD-EPI) NON-RACE DEPENDENT>90Normal>59ProSelect [facility] HospitalComment on above:Result Comment: Reported eGFR is based on the CKD-EPI 2020 equation that does not use a race coefficient.Performed By: #### AIXA, 36714-6, THYR, 25900-6, JOSAFAT #### [facility] ([id number]) [address], [address] [place], [place] [address]Mkmdamt [Mass/Vol]81 mg/bTBhkdkr06-52IkqVobntt [facility] Comment on above:Performed By: #### AIXA, 41458-8, THYR, 63200-9, HARemy #### [facility] ([id number]) [address], [address] [place], [place] [address]Xfxopieel [Moles/Vol]3.7 mmol/LNormal3.5-5.0ProOhiohealth Pickerington Methodist HospitalComment on above:Performed By: #### AIXA, 13931-1, THYR, 56661-3, HA1C #### [facility] ([id number]) [address], [address] [place], [place] [address]Wmhiube [Mass/Vol]7.0 g/dLNormal6.0-8.0[facility] Comment on above:Performed By: #### AIXA, 89175-1, THYR, 69601-5, HA1C #### [facility] ([id number]) [address], [address] [place], [place] [address]Kuoudb [Moles/Vol]138 mmol/LPkvlln361-993TbsMahtib [facility] HospitalComment on above:Performed By: #### CMP, 46448-3, THYR, 04352-2, HA1C #### [facility] ([id number]) [address], [address] [place], [place] [address]Xcvj nitrogen [Mass/Vol]11 mg/dLNormal5-23ProOhiohealth Pickerington Methodist HospitalComment on above:Performed By: #### CMP, 40664-7, THYR, 62775-9, HA1C #### [facility] ([id number]) [address], [address] [place], [place] [address]Wdpjowxtixfyg metabolic panelon 70-48-7463Tbxtlcb [Mass/Vol]4.2 g/dL3.2 - 5.3 g/dLProMedical Center Barbour Health SystemALP [Catalytic activity/Vol]57 U/L39 - 130 U/[facility] Health SystemALT No additional P-5'-P [Catalytic activity/Vol] 13 U/L0 - 31 U/[facility] Health SystemAnion gap [Moles/Vol]9 mmol/L5 - 15 mmol/[facility] Health SystemAST [Catalytic activity/Vol]17 U/L0 - 41 U/L [facility]icPay[facility] SystemBilirubin [Mass/Vol]0.5 mg/dL0.3 - 1.2 mg/dLProHenry County Hospital SystemCalcium [Mass/Vol]8.9 mg/dL8.5 - 10.5 mg/dLDunlap Memorial Hospital System Chloride [Moles/Vol]105 mmol/L98 - 109 mmol/[facility] Health SystemCO2 [Moles/Vol]24 mmol/L22 - 32 mmol/[facility] SystemCreatinine [Mass/Vol] 0.52 mg/dL0.40 - 1.00 mg/dLMarion HospitalComment on above:METHOD TRACEABLE TO IDOH STANDARDeGFR (CKD-EPI)non-race dependent- Page Memorial HospitalComment on above: Reported eGFR is based on the CKD-EPI 2020 equation that does not use a race coefficient. Glucose [Mass/Vol]81 mg/dL65 - 99 mg/dLDunlap Memorial Hospital SystemPotassium [Moles/Vol]3.7 mmol/L3.5 - 5.0 mmol/LPrParkview Medical Center Health SystemProtein [Mass/Vol]7 g/dL6.0 - 8.0 g/dLDunlap Memorial Hospital SystemSodium [Moles/Vol]138 mmol/L134 - 146 mmol/LProMedica Health SystemUrea nitrogen [Mass/Vol]11 mg/dL5 - 23 mg/dL [facility] HospitalHGB A1C (GLYCO-HGB)on 03-13-3420Bppqcrg [Mass/Vol]100 mg/dLNormalTrumbull Regional Medical CenterComment on above:Performed By: #### AIXA, 58724-4, THYR, 92161-5, HA1C #### [facility] ([id number]) [address] [place] [address], [facility] [address] [place], [place] [address]TgO6k (Bld) [Mass fraction]5.1 %Normal4.4-5.6Trumbull Regional Medical CenterComment on above:Result Comment: NOTE ADA Guidelines Result HgbA1c Normal : less than 5.7 % Prediabetes : 5.7 % to 6.4 % Diabetes : > 6.4 % Use with caution in patients with abnormal hemoglobin variants as the half-life of red blood cells and in vivo glycation rates are affected.Performed By: #### AIXA, 67193-5, THYR, 89249-5, HA1C #### [facility] ([id number]) [address] [place] [address], [address] [place], [place] [address]Rknqm 1996 panelon 00-25-9238Ioglufaxayo [Mass/Vol]152 mg/dL150 - 200 mg/dLMarion HospitalCholesterol in HDL [Mass/Vol]57 mg/dL39 - PINF mg/dLMarion HospitalComment on above: HDL <40 mg/dL - High Risk HDL > or = 40mg/dL- Desirable HDL >60 mg/dL - Negative Risk Cholesterol in LDL [Mass/Vol]62 mg/dLNINF - 130 mg/dLMarion Hospital Comment on above: LDL <100 mg/dL - Desirable LDL >160 mg/dL - High Risk Cholesterol in VLDL [Mass/Vol]33 mg/dLHigh0 - 30 mg/dLMarion Hospital Cholesterol.total/Cholesterol in HDL [Mass ratio]2.7 {ratio}1.0 - 5.0Marion HospitalInterpretation and review of laboratory resultsAbnormalMarion HospitalTriglyceride [Mass/Vol]164 mg/tTGsno14 - 150 mg/dLMarion HospitalCholesterol [Mass/Vol]152 mg/fAFegcdq079-983DakCecfwlTrumbull Regional Medical Center Comment on above:Performed By: #### AIXA, 49156-4, [facility], 05189-6, HA1C #### [facility] ([id number]) [address], [address] [place], [place] [address]Incbjngzzea in HDL [Mass/Vol]57 mg/dLNormal>39Trumbull Regional Medical CenterComment on above:Result Comment: HDL <40 mg/dL - High Risk HDL > or = 40mg/dL- Desirable HDL >60 mg/dL - Negative Risk Performed By: #### AIXA, 34703-5, [facility], 85345-9, HA1C #### [facility] ([id number]) [address], [address] [place], [place] [address]Dodldhcijsd in LDL [Mass/Vol]62 mg/dLNormal<130ProOhiohealth Pickerington Methodist HospitalComment on above:Result Comment: LDL <100 mg/dL - Desirable LDL >160 mg/dL - High Risk Performed By: #### AIXA, 68194-4, THYR, 23161-6, HA1C #### [facility] ([id number]) [address], [address] [place], [place] [address]Muvxacazwsg in VLDL [Mass/Vol]33 mg/dLHigh0-30Pro[facility] [place] HospitalComment on above:Performed By: #### AIXA, 21120-8, THYR, 01032-8, HA1C #### [facility] ([id number]) [address], [address] [place], [place] [address]LPHINAIRXZP:HDL2.7Gspkkw2.0-5.0Pro[facility] [place] HospitalComment on above:Performed By: #### AIXA, 58121-2, THYR, 25732-8, HARemy #### [facility] ([id number]) [address], [address] [place], [place] [address]Ftiogyjezmdb [Mass/Vol]164 mg/wGOxjy85-408HvdHksrsg [place] HospitalComment on above:Performed By: #### AIXA, 61668-2, THYR, 45148-2, HA1C #### [facility] ([id number]) [address], [address] [place], [place] [address]UJUFYAETKXFA - ALBUMIN:CREATININE URINE RATIOon 12-20-2023 ALB/CREAT RATIO4.8 mg/g creatNormal0.0-30.0Pro[facility]ica [place] HospitalComment on above:Performed By: #### BOB #### [facility] ([id number]) [address], [address] [place], [place] [address]Uvjoagm DL <= 20 mg/L (U) [Mass/Vol]0.8 mg/dLNormal0.0-1.9 [facility] [place] HospitalComment on above:Performed By: #### BOB #### [facility] ([id number]) [address], [address] [place], [place] [address]YBYRT ELBYT678.90 mg/dLNoKeenan Private HospitalComment on above:Performed By: #### BOB #### [facility] ([id number]) [address], [address] [place], [place] [address]Haqfvhpgzhzh - Albumin: Creatinine Urine Ratioon 12-20-2023 Albumin DL <= 20 mg/L (U) [Mass/Vol]0.8 mg/dL0.0 - 1.9 mg/dLMarion HospitalAlbumin/Creatinine DL <= 1.0 mg/L (U) [Ratio]4.8ProC[facility] Clinic Luther[facility] Creatinine (U) [Mass/Vol]166.9 mg/dLHaven Behavioral Hospital of PhiladelphiaNo Panel Informationon 46-29-8525JimTknorjCommunity Regional Medical CenterTHYROID PROFILEon 17-96-8753Upda T4 [Mass/Vol]1.12 ng/dLNormal0.61-1.60[facility] Comment on above:Performed By: #### AIXA, 87780-9, THYR, 26025-2, HA1C #### [facility] ([id number]) [address], [address] [place], [place] [address]HNB0.09 uIU/mLLow0.49-4.67ProOhiohealth Pickerington Methodist HospitalComment on above:Performed By: #### AIXA, 72115-7, THYR, 78117-5, HA1C #### [facility] ([id number]) [address], [address] [place], [place] [address]Seegtqk profile includes TSH FT4on 87-05-1746Ggpt T4 [Mass/Vol] 1.12 ng/dL0.61 - 1.60 ng/dLMarion HospitalInterpretation and review of laboratory resultsAbnormalMarion HospitalTSH Qn0.09 m[IU]/LLowProPenn State Health St. Joseph Medical CenterVitamin D 25 hydroxyon 33-73-4426Oltkhux D+Metabolites [Mass/Vol]30.3 ng/mL30 - 100 ng/mLMarion HospitalComment on above: Vitamin D status 25 [place] Vitamin D Deficiency <20 ng/mL Insufficiency 20-29 ng/mL Sufficiency 30-100 ng/mL Toxicity >100 ng/mL NOTE: A pediatric reference range has not been established by the shader and toner of this kit. The [place] [employer] recommends a Vitamin D level of = or >20ng/mL in infants and children. Vitamin D+Metabolites [Mass/Vol]on 03-20-7370MgjFapizdCommunity Regional Medical CenterVITAMIN D 25 HYD TOT30.3 ng/tJIlkdkr83-434ZdwRtimje [facility] HospitalComment on above:Result Comment: Vitamin D status 25 [place] Vitamin D Deficiency <20 ng/mL Insufficiency 20-29 ng/mL Sufficiency 30-100 ng/mL Toxicity >100 ng/mL NOTE: A pediatric reference range has not been established by the shader and toner of this kit. The [place] [employer] recommends a Vitamin D level of = or >20ng/mL in infants and children.Performed By: #### CMP, 19664-2, THYR, 37067-5, HA1C #### [facility] ([id number]) [address] [place] [address], [address] [place], [place] [address]Jgeksvjetx Visit Summaryon 45-91-4609Fzrcccdfgn Visit Summary Ambulatory Visit Summary ANDRES RODRÍGUEZBRADEN MCKEON :1980 Visit Date:10/12/2023 Ambulatory Visit Instructions Your Diagnosis Ureteral stone Your Care Team Attending Physician - JEFFERY TRUONG, [place] Primary Care Physician - RITCHIE CHAIDEZ DO This Is Your Medications List Contact prescribing physician if questions or concerns ergocalciferol (Vitamin D) levothyroxine metformin (metformin 500 mg Tab) rosuvastatin (rosuvastatin 10 mg Tab) Procedures Performed Cystoscopic removal of ureteric stent (04/18/2022), Cystoscopic laser lithotripsy of ureteric calculus (04/06/2022), Breast surgery, Cholecystectomy, Hysterectomy, Tubal ligation. Discharge Vitals Temperature (Temporal Artery) 37 ?C Heart Rate (Peripheral) 62 Respiratory Rate 16 Blood Pressure 132/82 Height 157 cm Height 62 in Weight 79 kg Weight 173.8 lb BMI 32.05 What to do next You Need to Schedule the Following Appointments Follow Up with JEFFERY TRUONG, YENNIFER Adams When: Where: [address] [place] [address]- Medications What How Much When Instructions Unchanged ergocalciferol (Vitamin D) By Mouth Every week Contact prescribing physician if questionsor concerns Unchanged levothyroxine 250 Microgram Every day Contact prescribing physician if questions or concerns Unchanged metformin (metformin 500 mg Tab) 1 Tablets By Mouth 2 times a day Contact prescribing physician if questions or concerns Unchanged rosuvastatin (rosuvastatin 10 mg Tab) 1 Tablets By Mouth Every day Contact prescribing physician if questions or concerns Allergies penicillin (Throat discomfort) Problems Ongoing - Any problem that you are currently receiving treatment for. Asymptomatic microscopic hematuria Depression Gall stone Heart attack High cholesterol Hypertension Hypothyroid Kidney stones Type 2 diabetes mellitus Ureteral stone Patient Survey You may receive a survey via text or e-mail asking about your office visit. Please share your experience with us by completing your survey. We appreciate your feedback and thank you for choosing us for your care. Education Materials Dietary Guidelines to Help Prevent Kidney Stones Kidney stones are deposits of minerals and salts that form inside your kidneys. Your risk of developing kidney stones may be greater depending on your diet, your lifestyle, the medicines you take, and whether you have certain medical conditions. Most people can lower their risks of developing kidney stones by following these dietary guidelines. Your dietitian may give you more specific instructions depending on your overall health and the type of kidney stones you tend to develop. What are tips for following this plan? Reading food labels ? Choose foods with no salt added or low-salt labels. Limit your salt (sodium) intake to less than 1,500 mg a day. ? Choose foods with calcium for each meal and snack. Try to eat about 300 mg of calcium at each meal.Foods that contain 200?500 mg of calcium a serving include: ? 8 oz (237 mL) of milk, mhxwtpm-suivoopgtvpm-nhlfi milk, and calcium- fortifiedfruit juice. Calcium-fortified means that calcium has been added to these drinks. ? 8 oz (237 mL) of kefir, yogurt, and soy yogurt. ? 4 oz (114 g) of tofu. ? 1 oz (28 g) of cheese. ? 1 cup (150 g) of dried figs. ? 1 cup (91 g) of cooked broccoli. ? One 3 oz (85 g) can of sardines or mackerel. Most people need 1,000?1,500 mg of calcium a day. Talk to your dietitian about how much calcium is recommended for you. Shopping ? Buy plenty of fresh fruits and vegetables. Most people do not need to avoid fruits and vegetables, even if these foods contain nutrients that may contribute to kidney stones. ? When shopping for convenience foods, choose: ? Whole pieces of fruit. ? Pre-made salads with dressing on the side. ? Low-fat fruit and yogurt smoothies. ? Avoid buying frozen meals or prepared deli foods. These can be high in sodium. ? Look for foods with live cultures, such as yogurt and kefir. ? Choose high-fiber grains, such as whole-wheat breads, oat bran, and wheat cereals. Cooking ? Do not add salt to food when cooking. Place a salt shaker on the table and allow each person to addtheir own salt to taste. ? Use vegetable protein, such as beans, textured vegetable protein (TVP), or tofu, instead of meat inpasta, casseroles, and soups. Meal planning ? Eat less salt, if told by your dietitian. To do this: ? Avoid eating processed or pre-made food. ? Avoid eating fast food. ? Eat less animal protein, including cheese, meat, poultry, or fish, if told by your dietitian. To dothis: ? Limit the number of times you have meat, poultry, fish, or cheese each week. Eat a diet free of meat at least 2 days a week. ? Eat only one serving each day of meat, poultry, fish, or seafood. (more content not included)...NormalFisher Grace Medical CenterUrology Office/Clinic Noteon [id number] Office/Clinic NoteUrology Office/Clinic Note Chief Complaint ureteral stone HPI Staff 1 yr w/ KUB. Dx: ureteral stone, [facility]. KUB 10/20/22 [facility] was negative for stones. Results given over the phone. Dysuria: no Incomplete bladder emptying: no Hematuria: no Frequency: no Urgency: no Nocturia: 1x Stream: good steady Leaking: no Post void dripping: no Wearing pads/ Depends: no Urge incontinence: no Stress incontinence: no Incontinence without Sensory Awareness: no Abdominal pain: denies Flank pain: denies Sexual complaints: no History of Present Illness Tests reviewed: reviewed UA and KUB (s). I have reviewed the previous health record information and history for this patient from Dr. Gil. I have reviewed and verified the staff HPI to be accurate for this encounter. There have been no associated fever, chills, flank pain, or blood in the urine. Denies any urinary infections since last encounter. Review of Systems PHQ Score Initial Depression Screen Score: 0 SCORE ROS - Provider Constitutional: denies weight loss, denies hot flashes. Eyes: denies eye problems. Gastrointestinal: denies nausea, denies vomiting. Cardiovascular: denies chest pain or angina. Integumentary: no dryness Musculoskeletal: denies musculoskeletal symptoms. ENMT: denies otolaryngeal symptoms. Respiratory: no shortness of breath. Heme/Lymph: denies easy bleeding tendency, denies easy bruising tendency. Psychiatric: no confusion, no anxiety. Genitourinary: See HPI. Physical Exam Vitals & Measurements T: 37 ?C(Temporal Artery) HR: 62(Peripheral) RR: 16 BP: 132/82 HT: 62 in HT: 157 cm WT: 79 kg WT: 173.8 lb BMI: 32.05 General Appearance: alert , no acute distress, well nourished, well developed female. Assessment/Plan 1. Ureteral stone (N20.1: Calculus of ureter) S/p Cysto/R ureteral dilation/R ureteroscopy/R laser litho/basket extraction/R pyeloscopy/R stent placement 04/06/22. S/p Cysto/R stent removal 04/18/22. First stone event. KUB 10/20/22 [facility] - no stones id'd. KUB 10/10/23 [facility] - no stones id'd. UA today neg for infection or blood. No urinary concerns. Denies pain or passage of stones since last encounter. Admits that she does not drink enough water.Average 1-2 bottles of water during the day along with a cup of coffee in the morning. Recommended pt to increase fluid intake to ten to twelve 16oz bottles a day. Preferably water, clear pop, and sugar free lemonade. -Drastically increase fluid intake for stone prevention -Follow up PRN or sooner if needed Follow-up With When Contact Information JEFFERY TRUONG, [place], [address] [facility] [place] [address]- Additional Instructions: F/up as needed Patient Education Dietary Guidelines to Help Prevent Kidney Stones I, Andreina Toussaint, personally scribed for Dr. Gil on 10/12/2023 08:53:58. Electronically signedby taranibchuck Toussaint on 10/12/2023 08:53:58. Documentation recorded by the scribe, Andreina Toussaint, accurately reflects the services(s) I performed and decisions made by me. Authenticated by Dr. Gil on 10/12/2023 08:58:23. Problem List/Past Medical History Ongoing Asymptomatic microscopic hematuria Depression Gall stone Heart attack High cholesterol Hypertension Hypothyroid Kidney stones Type 2 diabetes mellitus Ureteral stone Historical No qualifying data Procedure/Surgical History Cystoscopic removal of ureteric stent (04/18/2022), Cystoscopic laser lithotripsy of ureteric calculus (04/06/2022), Breast surgery, Cholecystectomy, Hysterectomy, Tubal ligation. Medications levothyroxine, 250 mcg, Daily metformin 500 mg Tab, 500 mg= 1 tab(s), Oral, BID rosuvastatin 10 mg Tab, 10 mg= 1 tab(s), Oral, Daily Vitamin D, Oral, qWeek Allergies penicillin (Throat discomfort) Social History Tobacco Never (less than 100 in lifetime) Tobacco Use:. Never Smokeless Tobacco Use:. Household tobacco concerns: No. Yes, 10/12/2023 Family History Heart disease: Father. Hyperlipidemia: Mother and Father. Hypertension: Mother and Father. Ovarian cancer: Grandparent. Rectal cancer: Mother. Stroke: Aunt. Immunizations Vaccine Date Status influenza virus vaccine, inactivated 02/01/2022 Recorded SARS-CoV-2 (COVID-19) mRNAMUL.ORD![id number] 02/01/2022 Recorded influenza virus vaccine, inactivated 01/03/2021 Recorded SARS-CoV-2 (COVID-19) mRNA BNT-162b2 vax 01/03/2021 Recorded SARS-CoV-2 (COVID-19) mRNA BNT-162b2 vax 07/01/2020 Recorded SARS-CoV-2 (COVID-19) mRNA BNT-162b2 vax 06/10/2020 Recorded Lab Results Ambulatory Point of Care Results Bilirubin Urine Dipstick: Negative (10/12/23 08:23:00) Blood Urine Dipstick: Negative (10/12/23 08:23:00) Glucose Urine Dipstick: Negative (10/12/23 08:23:00) Ketones Urine Dipstick: Negative (10/12/23 08:23:00) Leukocytes Urine Dipstick: Negative (10/12/23 08:23:00) Nitrite Urine Dipstick: Negative (10/12/23 08:23:00) Protein Urine Dipstick: Negative ( (more content not included)...[facility] HospitalComment on above:Result Comment: Electronically Signed By: Dean GIL MD\.br\Date and Time Signed: 10/12/23 08:58 EDT\.br\Electronically Co-Signed By: Andreina Toussaint\.br\Date and Time Co- Signed: 10/12/2407:56 EDTProvider Letteron [phone] Letter October 26, 2022 AJ RODR[address]Z [address] [place] [address] : 1980 Dear Aj, We have been trying to reach you with no success. It is important that you return our call regarding your test results upon receiving this letter. Also, at the time of your call, please provide us with your current information. Thank you for your prompt attention to this matter. Sincerely, [facility] [phone] Memorial HospitalRAD - MISQuorum Health [phone] [facility] [id number]#[id number]:127Licking Memorial HospitalCALCULI, URINARYon ,8 DihydroxyadenineNoShelby Memorial HospitalComment on above:Performed By: #### BMP #### [facility] [address] [address] [address] Emanuel McgheeAmmonium Acid UrateNormalChildren'S Hospital For RehabilitationComment on above: Performed By: #### BMP #### [facility] [address] [address] [address] Emanuel McgheeBilirubin Ql (U)St. [facility] of God HospitalComment on above: Performed By: #### BMP #### [facility] [address] [address] [address] Emanuel Craft Oxalate Lqsthmbuy10 %St. [facility] of God HospitalComment on above:Performed By: #### BMP #### [facility] [address] [address] [address] Emanuel CraftHPO4 (Brushite)St[facility] of God HospitalComment on above: Performed By: #### BMP #### [facility] [address] [address] [address] Emanuel Lazaro BilirubinateNormalJ.W. Ruby Memorial Hospital on above: Performed By: #### BMP #### [facility] [address] [address] [address] Emanuel Alemanium CarbonateNoShelby Memorial HospitalComtrinity health [facility] hospital on above: Performed By: #### BMP #### [facility] [address] [address] [address] Emanuel Alemanium Oxalate Jmbhtosoksy82 %[facility] on above:Performed By: #### BMP #### [facility] [address] [address] [address] Emanuel Alemanium PalmitateNoShelby Memorial HospitalComtrinity health livingston hospital on above: Performed By: #### BMP #### [facility] [address] [address] [address] Emanuel Alemanium PhosphateNoShelby Memorial HospitalComtrinity health livingston hospital on above: Performed By: #### BMP #### [facility] [address] [address] [address] Emanuel Alemanium StearateNOhio Valley Hospital on above: Performed By: #### BMP #### [facility] [address] [address] [address] Emanuel Tonyate ApatiteKettering Health Preble on above: Performed By: #### BMP #### [facility] [address] [address] [address] Emanuel Morrowular MaterialKettering Health Preble on above: Performed By: #### BMP #### [facility] [address] [address] [address] Emanuel McgheeCholesterolKettering Health Preble on above:Performed By: #### BMP #### [facility] [address] [address] [address] Emanuel Dang (U)[facility] on above:Performed By: #### BMP #### [facility] [address] [address] [address] Emanuel GamboaKettering Health Preble on above:Performed By: #### BMP #### [facility] [address] [address] [address] Emanuel GamboaMemorial Hospital on above:Result Comment: Calculus received wet. Wet calculi must be dried before analysis, which delays reporting of results. Leaving calculi wet (such as water, saline, blood, urine) may lead to changes in composition.Performed By: #### BMP #### [facility] [address] [address] [address] Emanuel Gamboa:CommentKettering Health Preble on above:Result Comment: Physician questions regarding Calculi Analysis contact [facility] at: [phone].Performed By: #### BMP #### [facility] [address] [address] [address] Emanuel JangMemorial Hospital on above: Result Comment: Percentage (Represents the % composition)Performed By: #### BMP #### [facility] [address] [address] [address] Emanuel McgheeCystineSt. John of God HospitalComment on above:Performed By: #### BMP #### [facility] [address] [address] [address] Emanuel Robert:[facility] on above: Result Comment: This test was developed and its performance characteristics determined by [employer]. It has not been cleared or approved by the Food and Drug Administration.Performed By: #### BMP #### [facility] [address] [address] [address] Emanuel McgheeDried BloodKettering Health Preble on above:Performed By: #### BMP #### [facility] [address] [place] [address] Dr. Emanuel McgheeDrug or MetaboliteSt. John of God HospitalComment on above: Performed By: #### BMP #### [facility] [address] [address] [address] Emanuel McgheeHydroxyapatiteSt. John of God HospitalComtrinity health livingston hospital on above: Performed By: #### BMP #### [facility] [address] [address] [address] Emanuel McgheeMg NH4 PO4 (Struvite)St[facility] of God HospitalComment on above: Performed By: #### BMP #### [facility] [address] [place] [address] Dr. Emanuel McgheeMgHPO4 (Newberyite)St[facility] of God HospitalComment on above: Performed By: #### BMP #### [facility] [address] [address] [address] Emanuel McgheeOther component(s)St[facility] of God HospitalComment on above: Performed By: #### BMP #### [facility] [address] [address] [address] Emanuel McgheePDF.NormalChildren'S Hospital For RehabilitationComment on above:Performed By: #### BMP #### [facility] [address] [address] [address] Emanuel BejaranoKettering Health Preble on above:Result Comment: Photograph will follow under a separate coverPerformed By: #### BMP #### [facility] [address] [address] [address] Emanuel Fisher note:CommentKettering Health Preble on above: Result Comment: Calculi report will follow via computer, mail or cement breaker delivery.Performed By: #### BMP #### [facility] [address] [address] [address] E[address] CoronadoQxxvvCswv7t5AcxuvzL[address] on above:Result Comment: Multiple pieces received. Dimensions of the largest piece reported.Performed By: #### BMP #### [facility] [address] [address] [address] Emanuel Ravium Acid UrateNSt. Vincent HospitalComtrinity health livingston hospital on above: Performed By: #### BMP #### [facility] [address] [address] [address] Emanuel JackmanAvita Health System [facility] on above:Result Comment: Right UreterPerformed By: #### BMP #### [facility] [address] [address] [address] Emanuel DanielleAultman Orrville Hospital on above:Performed By: #### BMP #### [facility] [address] [address] [address] Emanuel Robbins AcidKettering Health Preble on above:Performed By: #### BMP #### [facility] [address] [address] [address] Emanuel McgheeUric Acid DihydrateNOhio Valley Hospital on above: Performed By: #### BMP #### [facility] [address] [address] [address] [place], [place] [address]Com[facility] on above:Performed By: #### BMP #### [facility] [address] [place] [address] Dr. Emanuel ChopranthineNormalThSalem City HospitalComment on above:Performed By: #### BMP #### [facility] [address] [place] [address] Dr. Emanuel Robin AUTO DIFFon [id number] #0.1 103/ulNormal0.0-0.1The [facility]ullComment on above:Performed By: #### BMP #### [facility] [address] [place] [address] Dr. Emanuel McgheeBasophils/100 WBC (Bld)0.7 %Normal0.2-2.0The [facility] Comment on above:Performed By: #### BMP #### [facility] [address] [place] [address] Dr. Emanuel Zarate #0.2 103/ulNormal0.0-0.7The [facility]ullComment on above: Performed By: #### BMP #### [facility] [address] [place] [address] Dr. Emanuel Clarkosinophils/100 WBC (Bld)1.7 %Normal0.9-7.0The [facility] Comment on above:Performed By: #### BMP #### [facility] [address] [place] [address] Dr. Emanuel Clarkrythrocyte distribution width (RBC) [Ratio]12.5 %Lxlxoy74.0-15.0 The [facility]ullComment on above:Performed By: #### BMP #### [facility] [address] [place] [address] Dr. Emanuel McgheeHematocrit (Bld) [Volume fraction]43.0 %Tqluai19.0-48.0The [facility]ullComment on above:Performed By: #### BMP #### [facility] [address] [place] [address] Dr. Emanuel McgheeHemoglobin (Bld) [Mass/Vol]14.6 g/rGBcycwo02.0-16.0The [facility]ullComment on above:Performed By: #### BMP #### [facility] [address] [place] [address] Dr. Emanuel Rooney #0.05 10e3/ulCritically high0.00-0.03The [facility] Comment on above:Performed By: #### BMP #### [facility] [address] [place] [address] Dr. Emanuel Rooney %0.5 %Normal0.0-0.5The [facility]ullComment on above: Performed By: #### BMP #### [facility] [address] [place] [address] Dr. Emanuel Masterson #3.8 103/ulNormal1.2-3.8The [facility]ullComment on above:Performed By: #### BMP #### [facility] [address] [place] [address] Dr. Emanuel Porterhocytes/100 WBC (Bld)35.7 %Gzybsw83.5-60.0The [facility]ullComment on above:Performed By: #### BMP #### [facility] [address] [place] [address] Dr. Emanuel CervantesUAL DIFF REQNONormalThe [facility]umbullComment on above: Performed By: #### BMP #### [facility] [address] [place] [address] Dr. Emanuel Liao (RBC) [Entitic mass]30.6 niPabzye56.7-34.0The [facility]ullComment on above:Performed By: #### BMP #### [facility] [address] [place] [address] Dr. Emanuel Queen (RBC) [Mass/Vol]34.0 g/cAAobjsv86.9-35.2The [facility]ullComment on above:Performed By: #### BMP #### [facility] [address] [place] [address] Dr. Emanuel Queen (RBC) [Entitic vol]90.1 mWUpxdxn58.0-99.0The [facility]ullComment on above:Performed By: #### BMP #### [facility] [address] [place] [address] Dr. Emanuel Andrade #1.0 103/ulCritically high0.3-0.8The [facility] Comment on above:Performed By: #### BMP #### [facility] [address] [address] [address] Emanuel Calvilloocytes/100 WBC (Bld)9.0 %Normal1.7-12.0The [facility] Comment on above:Performed By: #### BMP #### [facility] [address] [place] [address] Dr. Emanuel Foote #5.6 103/ulNormal1.4-6.5The [facility]ullComment on above:Performed By: #### BMP #### [facility] [address] [place] [address] Dr. Emanuel Riggsutrophils/100 WBC (Bld)52.4 %Awkzia87.0-75.0The [facility]ullComment on above:Performed By: #### BMP #### [facility] [address] [place] [address] Dr. Emanuel Herrera mean volume (Bld) [Entitic vol]9.0 fLCritically low 9.5-13.5The [facility]ullComment on above:Performed By: #### BMP #### [facility] [address] [place] [address] Dr. Emanuel McgheePLT326 103/cvVhzbcp673-842Mhn [facility] TrumbullComment on above: Performed By: #### BMP #### [facility] [address] [place] [address] Dr. Emanuel McgheeRBC4.77 106/ulNormal4.20-5.40The [facility] TrumbullComment on above:Performed By: #### BMP #### [facility] [address] [place] [address] Dr. Emanuel McgheeWBC10.7 103/ulNormal4.0-11.0The [facility] Tr[facility]ullComment on above:Performed By: #### BMP #### [facility] [address] [address] [address] Emanuel McgheeCT ABD/PELVIS WO CONon [id number] ABD/PELVIS WO CONEXAMINATION: CT ABD/PELVIS WO CON, 04/11/2022 2:16 AM EST HISTORY: CALCULUS OF KIDNEY COMPARISON: 03/04/2022 TECHNIQUE: CT scan of the abdomen and pelvis was performed without IV contrast. Multiplanar reformats were generated. CT dose reduction technique was used, including Automated Exposure Control. FINDINGS: Exam is limited by lack of contrast. Lower thorax: No acute pulmonary infiltrate, pleural or pericardial effusion. Partially seen bilateral breast implants. Liver: Mild hepatomegaly with diffuse severe steatosis. Biliary: S/p cholecystectomy. Spleen: Unremarkable Pancreas: Unremarkable. Adrenals: Unremarkable. Kidneys and bladder: There is moderate right-sided hydronephrosis, despite the presence of a double-J stent which extends from the renal pelvis to the urinary bladder. There is some periureteral stranding. No definite calculi are seen along the stent. Bladder is mostly empty. No left-sided calculi or hydronephrosis seen. GI Tract: No evidence of obstruction. Appendix appears within normal limits. Lymph Nodes: No lymphadenopathy. Mesentery/peritoneum: No free fluid or free air. Retroperitoneum: No mass or fluid collection. Vasculature: No visible abdominal aortic or iliac artery aneurysm. Pelvis: No mass visible. Status post hysterectomy. Presumed ovaries appear unremarkable. Bones/Soft Tissues: No acute abnormality. No significant soft tissue abnormality. IMPRESSION: Moderate right-sided hydronephrosis, despite the presence of a double-J stent which extends from the renal pelvis to the urinary bladder. There is some periureteral stranding. No definite calculi are seen along the stent. Correlate to exclude superimposed infection. Other stable chronic and likely incidental findings, as described above. Electronically authenticated by: KARLA RAZA Date: 2022-04-11 04:00NormalThe [facility] URINE PROFILEon [id number] Ql (U)NegativeNormal NEGATIVEThe [facility]ullComment on above:Performed By: #### CBC #### [facility] [address] [address] [address] Emanuel McgheeClarity (U)CLEARNormalCLEARThe Adrian HospitalComment on above: Performed By: #### CBC #### [facility] [address] [address] [address] Emanuel Masonlor (U)BROWNAbnormalYELLOWChildren'S Hospital For RehabilitationComment on above:Performed By: #### CBC #### [facility] [address] [address] [address] Emanuel Spears micrscopic examination will be performed if indicated. NormalChildren'S Hospital For RehabilitationComment on above:Performed By: #### CBC #### [facility] [address] [address] [address] Emanuel McgheeGlucose Ql (U)250 mg/dlAbnormalNEGCleveland Clinic Mentor Hospital Comment on above:Performed By: #### CBC #### [facility] [address] [address] [address] Emanuel McgheeHemoglobin Ql (U)LARGEAbnormalNEGCleveland Clinic Mentor Hospital Comment on above:Performed By: #### CBC #### [facility] [address] [address] [address] Emanuel McgheeKetones Ql (U)NegativeNormalNEGATIVEChildren'S Hospital For RehabilitationComtrinity health [facility] hospital on above:Performed By: #### CBC #### [facility] [address] [address] [address] Emanuel McgheeLEUKOCYTESNegativeNormalNEGATIVEChildren'S Hospital For RehabilitationComtrinity health [facility] hospital on above:Performed By: #### CBC #### [facility] [address] [address] [address] Emanuel McgheeNitrite Ql (U)NegativeNormalNEGATIVEChildren'S Hospital For RehabilitationComment on above:Performed By: #### CBC #### [facility] [address] [address] [address] Emanuel McgheepH (U)5.5 [pH]Normal5-9Children'S Hospital For RehabilitationComtrinity health [facility] hospital on above: Performed By: #### CBC #### [facility] [address] [address] [address] Emanuel McgheeSPEC GRAVITY>=1.353Raukqksk7.005-<=1.025The [facility] Comment on above:Performed By: #### CBC #### [facility] [address] [address] [address] Emanuel Neves PROTEIN>300AbnormalNEGATIVE/ TRACEThe [facility] TrumbullComment on above:Performed By: #### CBC #### [facility] [address] [address] [address] Emanuel Thomas MICRO INDINDICATEDNormalThe [facility] TrumbullComment on above: Performed By: #### CBC #### [facility] [address] [place] [address] Dr. Emanuel Rodbilinogen Qn (U)1.0 {Randy'U}/dLNormal0.2 - 1.0The [facility] TrumbullComment on above:Performed By: #### CBC #### [facility] [address] [place] [address] Dr. Emanuel ManzoF CHEM 8 (BAS METB)on [id number] gap [Moles/Vol]14.8 mmol/LNormalThe [facility] TrumbullComment on above:Performed By: #### BMP #### [facility] [address] [place] [address] Dr. Emanuel McgheeCalcium [Mass/Vol]9.0 mg/dLNormal8.5-10.1[facility] Comment on above:Performed By: #### BMP #### [facility] [address] [place] [address] Dr. Emanuel McgheeChloride [Moles/Vol]101 mmol/EXkoazr21-233Xyq [facility] Comment on above:Performed By: #### BMP #### [facility] [address] [place] [address] Dr. Emanuel McgheeCO2 [Moles/Vol]25.2 mmol/DAbasbc90.0-32.0The [facility] Comment on above:Performed By: #### BMP #### [facility] [address] [place] [address] Dr. Emanuel McgheeCreatinine [Mass/Vol]0.83 mg/dLNormal0.55-1.02The [facility] TrumbullComment on above:Performed By: #### BMP #### [facility] [address] [address] [address] Emanuel ClarkGFR-AF NAMIBIAN>60Normal>=60The [facility] TrumbullComment on above:Performed By: #### BMP #### [facility] [address] [address] [address] Emanuel ClarkGFR-NON AF NAMIBIAN>60Normal>=60The [facility] TrumbullComment on above:Performed By: #### BMP #### [facility] [address] [address] [address] Emanuel McgheeGlucose [Mass/Vol]161 mg/dLCritically xkmu52-105Ied [facility] on above:Performed By: #### BMP #### [facility] [address] [address] [address] Emanuel McgheePotassium [Moles/Vol]4.0 mmol/LNormal3.5-5.1The [facility] Comment on above:Performed By: #### BMP #### [facility] [address] [address] [address] Emanuel Greshamdium [Moles/Vol]137 mmol/RPgwmfg026-760WgaChildren'S Hospital For Rehabilitation Comment on above:Performed By: #### BMP #### [facility] [address] [address] [address] Emanuel McgheeUrea nitrogen [Mass/Vol]16.0 mg/dLNormal7.0-18.0The [facility] System West Campusment on above:Performed By: #### BMP #### [facility] [address] [address] [address] Emanuel Holder nitrogen/Creatinine [Mass ratio]19.3 mg/mgNormalThe [facility] TrumbullComment on above:Performed By: #### BMP #### [facility] [address] [address] [address] Emanuel Oliver MICROSCOPIC ONLYon [id number]K SEEN The [facility] TrumbullComment on above:Performed By: #### CBC #### [facility] [address] [place] [address] Dr. Emanuel Medley identified Cx Nom (U)NOT INDICATEDNormalThSalem City HospitalComtrinity health [facility] hospital on above:Performed By: #### CBC #### [facility] [address] [place] [address] Dr. Emanuel McgheeCASTMARILUZE SEENNormalNONE SEENChildren'S Hospital For RehabilitationComtrinity health [facility] hospital on above:Performed By: #### CBC #### [facility] [address] [place] [address] Dr. Emanuel Frey LM Nom (Urine sed)NONE SEENNormalNONE SEENJ.W. Ruby Memorial Hospital on above:Performed By: #### CBC #### [facility] [address] [place] [address] Dr. Castellanos ChangEpithelial cells LM Ql (Urine sed)RARENormalNONE SEEN /RAREChildren'S Hospital For RehabilitationComtrinity health [facility] hospital on above:Performed By: #### CBC #### [facility] [address] [place] [address] Dr. Emanuel GilCOUSNONE SEENNormalNONE SEENJ.W. Ruby Memorial Hospital on above:Performed By: #### CBC #### [facility] [address] [place] [address] Dr. Emanuel Skelton (U) [#/Vol]/uLAbnormal0-2The [facility] on above:Performed By: #### CBC #### [facility] [address] [place] [address] Dr. Emanuel Juarez0-2AbnormalNONE SEENJ.W. Ruby Memorial Hospital on above: Performed By: #### CBC #### [facility] [address] [place] [address] Dr. Emanuel Robin AUTO DIFFon [id number] #0.1 103/ulNormal0.0-0.1The [facility] on above:Performed By: #### CBC #### [facility] [address] [place] [address] Dr. Emanuel McgheeBasophils/100 WBC (Bld)1.3 %Normal0.2-2.0The [facility] Comment on above:Performed By: #### CBC #### [facility] [address] [place] [address] Dr. Emanuel Zarate #0.1 103/ulNormal0.0-0.7The [facility]ullComment on above: Performed By: #### CBC #### [facility] [address] [place] [address] Dr. Emanuel Clarkosinophils/100 WBC (Bld)2.3 %Normal0.9-7.0The [facility] Comment on above:Performed By: #### CBC #### [facility] [address] [place] [address] Dr. Emanuel Clarkrythrocyte distribution width (RBC) [Ratio]12.9 %Wnhdue18.0-15.0 The [facility]ullComment on above:Performed By: #### CBC #### [facility] [address] [place] [address] Dr. Emanuel McgheeHematocrit (Bld) [Volume fraction]46.6 %Utzbcm81.0-48.0The [facility]ullComment on above:Performed By: #### CBC #### [facility] [address] [place] [address] Dr. Emanuel McgheeHemoglobin (Bld) [Mass/Vol]15.0 g/fCXiwaso17.0-16.0The [facility]ullComment on above:Performed By: #### CBC #### [facility] [address] [place] [address] Dr. Emanuel Rooney #0.01 10e3/ulNormal0.00-0.03The [facility]ullComment on above:Performed By: #### CBC #### [facility] [address] [place] [address] Dr. Emanuel Rooney %0.2 %Normal0.0-0.5The [facility]ullComment on above: Performed By: #### CBC #### [facility] [address] [address] [address] Emanuel Masterson #2.2 103/ulNormal1.2-3.8The [facility]ullComment on above:Performed By: #### CBC #### [facility] [address] [address] [address] Emanuel Proterhocytes/100 WBC (Bld)41.2 %Vjjzyw19.5-60.0The [facility]ullComment on above:Performed By: #### CBC #### [facility] [address] [address] [address] Emanuel Ruiz DIFF REQNONormalThe [facility]ullComment on above: Performed By: #### CBC #### [facility] [address] [place] [address] Dr. Emanuel Queen (RBC) [Entitic mass]30.5 srXyenve61.7-34.0The [facility]Comment on above:Performed By: #### CBC #### [facility] [address] [place] [address] Dr. Emanuel Queen (RBC) [Mass/Vol]32.2 g/aVKgrbao53.9-35.2The [facility]ullComment on above:Performed By: #### CBC #### [facility] [address] [place] [address] Dr. Emanuel Queen (RBC) [Entitic vol]94.7 hKQfpzoa33.0-99.0The [facility]ullComment on above:Performed By: #### CBC #### [facility] [address] [place] [address] Dr. Emanuel Andrade #0.3 103/ulNormal0.3-0.8The [facility]ullComment on above:Performed By: #### CBC #### [facility] [address] [place] [address] Dr. Emanuel Calvilloocytes/100 WBC (Bld)6.4 %Normal1.7-12.0The [facility] Comment on above:Performed By: #### CBC #### [facility] [address] [place] [address] Dr. Emanuel RiggsUT #2.6 103/ulNormal1.4-6.5The [facility]ullComment on above:Performed By: #### CBC #### [facility] [address] [place] [address] Dr. Emanuel Riggsutrophils/100 WBC (Bld)48.6 %Odfhhy59.0-75.0The [facility]ullComment on above:Performed By: #### CBC #### [facility] [address] [place] [address] Dr. Emanuel McgheePlatelet mean volume (Bld) [Entitic vol]9.0 fLCritically low 9.5-13.5The [facility]ullComment on above:Performed By: #### CBC #### [facility] [address] [place] [address] Dr. Emanuel McgheePLT284 103/vpRlvgem221-637Ydy [facility]ullComment on above: Performed By: #### CBC #### [facility] [address] [place] [address] Dr. Emanuel McgheeRBC4.92 106/ulNormal4.20-5.40The [facility]ullComment on above:Performed By: #### CBC #### [facility] [address] [place] [address] Dr. Emanuel McgheeWBC5.3 103/ulNormal4.0-11.0The [facility]ullComment on above: Performed By: #### CBC #### [facility] [address] [place] [address] Dr. Emanuel McgheeCovid-19 PCR (CVDTBH)on [id number]-CoV-2 (COVID-19) RNA JEF+probe Ql (Unsp spec)Not detectedNormalNOT DETECTEDThe [facility] Comment on above:Result Comment: This test is not yet approved or cleared by the [place] FDA. When there are no FDA-approved or cleared tests available, and other criteria are met, FDA can make tests available under an emergency access mechanism called an Emergency Use Authorization (EUA). The EUA for this test is supported by the [employer] Scientist of Health and Human Service's (HHS's) declaration that circumstances exist to justify the emergency use of in vitro diagnostics for the detection and/or diagnosis of the virus that causes COVID- 19. This EUA will remain in effect (meaning this test can be used) for the duration of the COVID-19 declaration justifying emergency of IVDs, unless it is terminated or revoked by FDA (after which the test may no longer be used). When diagnostic testing is negative, the possibility of a false negative should be considered in the context of a patient's recent exposures and the presence of clinical signs and symptoms consistent with SARS-CoV-2.Performed By: #### CVDTB #### [facility] [address] [place] [address] Dr. Emanuel McgheePROF CHEM 8 (BAS METB)on [id number] gap [Moles/Vol]14.6 mmol/LNormalChildren'S Hospital For RehabilitationComment on above:Performed By: #### BMP #### [facility] [address] [place] [address] Dr. Emanuel McgheeCalcium [Mass/Vol]8.9 mg/dLNormal8.5-10.1[facility] Comment on above:Performed By: #### BMP #### [facility] [address] [place] [address] Dr. Emanuel McgheeChloride [Moles/Vol]105 mmol/JIsmhnj99-049VknChildren'S Hospital For Rehabilitation Comment on above:Performed By: #### BMP #### [facility] [address] [place] [address] Dr. Emanuel McgheeCO2 [Moles/Vol]26.4 mmol/GYpkjrh35.0-32.0[facility] Comment on above:Performed By: #### BMP #### [facility] [address] [place] [address] Dr. Emanuel McgheeCreatinine [Mass/Vol]0.67 mg/dLNormal0.55-1.02The [facility]ullComment on above:Performed By: #### BMP #### [facility] [address] [address] [address] Emanuel ClarkGFR-AF NAMIBIAN>60Normal>=60The [facility]ullComment on above:Performed By: #### BMP #### [facility] [address] [address] [address] Emanuel ClarkGFR-NON AF NAMIBIAN>60Normal>=60The [facility]ullComment on above:Performed By: #### BMP #### [facility] [address] [address] [address] Emanuel McgheeGlucose [Mass/Vol]132 mg/dLCritically ohjn82-677Hna [facility]ullComment on above:Performed By: #### BMP #### [facility] [address] [address] [address] Emanuel McgheePotassium [Moles/Vol]4.0 mmol/LNormal3.5-5.1The [facility] Comment on above:Performed By: #### BMP #### [facility] [address] [address] [address] Emaneul McgheeSodium [Moles/Vol]142 mmol/TSskzrh081-822Kmn [facility] Comment on above:Performed By: #### BMP #### [facility] [address] [place] [address] Dr. Emanuel McgheeUrea nitrogen [Mass/Vol]11.0 mg/dLNormal7.0-18.0The [facility]ullComment on above:Performed By: #### BMP #### [facility] [address] [address] [address] Emanuel Holder nitrogen/Creatinine [Mass ratio]16.4 mg/mgNormalThe [facility]ullComment on above:Performed By: #### BMP #### [facility] [address] [address] [address] Emanuel McgheePROTIMEon [id number] Coag (PPP) [Relative time]1.01 {INR} NormalThe [facility]ullComment on above:Performed By: #### PTT, PT #### [facility] [address] [place] [address] Dr. Emanuel Christianson GUIDELINESSEE BELOWSt. John of God HospitalComment on above:Result Comment: DESIRED INR: 2.0 - 3.0 CONDITIONS NOT LISTED BELOW 2.5 - 3.5 FOR PROSTHETIC HEART VALVE REPLACEMENT 2.5 - 3.5 RECURRENT THROMBOSIS Performed By: #### PTT, PT #### [facility] [address] [place] [address] Dr. Emanuel McgheePT Coag (PPP) [Time]10.7 sNormal9.0-11.6The [facility] Comment on above:Performed By: #### PTT, PT #### [facility] [address] [place] [address] Dr. Emanuel LaraTon [id number] Coag (Bld) [Time]29.6 uLwgrhu76.3-36.2[facility] For RehabilitationComment on above:Performed By: #### PTT, PT #### [facility] [address] [place] [address] Dr. Emanuel McgheeXR KUB 1 VIEWon [id number] KUB 1 VIEWEXAMINATION: XR KUB 1 VIEW HISTORY: Kidney stone COMPARISON: CT abdomen pelvis 03/04/2022 FINDINGS: KIDNEY/URETER - RIGHT: Grossly stable 6 x 4 mm calcification within proximal right ureter adjacent L3 vertebral body. KIDNEY/URETER - LEFT: No visible renal or ureteral calcifications. PELVIS: No visible ureteral calcifications. Any visible calcifications favor phleboliths. BOWEL: No abnormal dilation or deviation. BONES: No acute abnormality. OTHER: Negative. No abnormal gaseous collections. IMPRESSION: 1. Proximal right ureteral stone, 6 x 4 mm. Not appreciably regressed compared to 03/04/2022 CT abdomen pelvis. Electronically authenticated by: JANE SCOTT Date: 2022-03-27 09:49St. [facility] of God HospitalAMYLASEon 15-59-5500Hznibtb [Catalytic activity/Vol]29 U/L Srytia43-560GwmChildren'S Hospital For RehabilitationComment on above:Performed By: #### CBC #### [facility] [address] [place] [address] Dr. Emanuel McgheeCBC AUTO DIFFon [id number] #0.1 103/ulNormal0.0-0.1The [facility]ullComment on above:Performed By: #### CBC #### [facility] [address] [address] [address] Emanuel McgheeBasophils/100 WBC (Bld)1.0 %Normal0.2-2.0The [facility] Comment on above:Performed By: #### CBC #### [facility] [address] [address] [address] Emanuel Zarate #0.2 103/ulNormal0.0-0.7The [facility]ullComment on above: Performed By: #### CBC #### [facility] [address] [place] [address] Dr. Emanuel Clarkosinophils/100 WBC (Bld)2.2 %Normal0.9-7.0The [facility] Comment on above:Performed By: #### CBC #### [facility] [address] [place] [address] Dr. Emanuel Clarkrythrocyte distribution width (RBC) [Ratio]13.0 %Itvstv80.0-15.0 The [facility]ullComment on above:Performed By: #### CBC #### [facility] [address] [place] [address] Dr. Emanuel McgheeHematocrit (Bld) [Volume fraction]40.4 %Immips08.0-48.0The [facility]ullComment on above:Performed By: #### CBC #### [facility] [address] [place] [address] Dr. Emanuel McgheeHemoglobin (Bld) [Mass/Vol]14.4 g/gPXtodep01.0-16.0The [facility]ullComment on above:Performed By: #### CBC #### [facility] [address] [place] [address] Dr. Emanuel Rooney #0.03 10e3/ulNormal0.00-0.03The [facility]ullComment on above:Performed By: #### CBC #### [facility] [address] [address] [address] Emanuel Rooney %0.4 %Normal0.0-0.5The [facility] on above: Performed By: #### CBC #### [facility] [address] [address] [address] Emanuel Masterson #2.3 103/ulNormal1.2-3.8The [facility]ullComment on above:Performed By: #### CBC #### [facility] [address] [place] [address] Dr. Emanuel Porterhocytes/100 WBC (Bld)31.1 %Dwjtrp31.5-60.0The [facility] on above:Performed By: #### CBC #### [facility] [address] [place] [address] Dr. Emanuel CervantesUAL DIFF REQNONormalThe [facility]ullComment on above: Performed By: #### CBC #### [facility] [address] [place] [address] Dr. Emanuel Queen (RBC) [Entitic mass]30.5 yqLxfjwi92.7-34.0The [facility] on above:Performed By: #### CBC #### [facility] [address] [place] [address] Dr. Emanuel Queen (RBC) [Mass/Vol]35.6 g/dLCritically high29.9-35.2The [facility] on above:Performed By: #### CBC #### [facility] [address] [place] [address] Dr. Emanuel Queen (RBC) [Entitic vol]85.6 wBMngavk02.0-99.0The [facility] on above:Performed By: #### CBC #### [facility] [address] [place] [address] Dr. Emanuel Andrade #0.4 103/ulNormal0.3-0.8The [facility] on above:Performed By: #### CBC #### [facility] [address] [address] [address] Emanuel Calvilloocytes/100 WBC (Bld)5.8 %Normal1.7-12.0The [facility] Comment on above:Performed By: #### CBC #### [facility] [address] [place] [address] Dr. Emanuel RiggsUT #4.4 103/ulNormal1.4-6.5The [facility]ullComment on above:Performed By: #### CBC #### [facility] [address] [place] [address] Dr. Emanuel Riggsutrophils/100 WBC (Bld)59.5 %Thbtpy39.0-75.0The [facility]ullComment on above:Performed By: #### CBC #### [facility] [address] [place] [address] Dr. Emanuel McgheePlatelet mean volume (Bld) [Entitic vol]8.8 fLCritically low 9.5-13.5The [facility]ullComment on above:Performed By: #### CBC #### [facility] [address] [place] [address] Dr. Emanuel McgheePLT236 103/dkEdbkrs065-175Fic [facility] Tr[facility]ullComment on above: Performed By: #### CBC #### [facility] [address] [place] [address] Dr. Emanuel McgheeRBC4.72 106/ulNormal4.20-5.40The [facility] TrumbullComment on above:Performed By: #### CBC #### [facility] [address] [place] [address] Dr. Emanuel McgheeWBC7.3 103/ulNormal4.0-11.0The [facility] TrumbullComment on above: Performed By: #### CBC #### [facility] [address] [place] [address] Dr. Emanuel McgheeCT ABD/PELVIS WO CONon [id number] ABD/PELVIS WO CONEXAMINATION: CT ABD/PELVIS WO CON, 03/04/2022 9:38 AM EST HISTORY: Right sided abdominal pain. COMPARISON STUDY: CT of the chest 01/27/2018. TECHNIQUE: 3 mm sections were obtained from the lung bases through the pubic symphysis without the use of contrast. Coronal and sagittal reconstructed images were obtained. CT scan of the abdomen and pelvis was performed without IV contrast. CT dose reduction technique was used, including Automated Exposure Control. CT ABDOMEN: There is partial visualization of the caudal aspect of the right breast implant. Heart size is normal. Lung bases are clear. Severe diffuse hepatic steatosis noted. The right hepatic lobe is elongated measuring 24 cm superior to inferior. Gallbladder is surgically absent. Spleen, pancreas, adrenals and left kidney appear unremarkable. A calculus near the right ureteropelvic junction measures 7.5 mm superior to inferior. There is mild right-sided hydronephrosis. No additional renal calculi are identified. Bowel pattern is nonobstructive. CT PELVIS: Urinary bladder lumen is nearly completely collapsed. The uterus is surgically absent. Right ovary appears unremarkable. Small left ovarian follicles and cysts are noted. One for example measures 3.0 cm. Mild colonic diverticular disease is suggested. The appendix is unremarkable. Aorta is nonaneurysmal. No acute osseous abnormality suspected. IMPRESSION: 1. There is mild right-sided hydronephrosis as a result of a 7.5 mm calculus located near the right ureteropelvic junction. 2. Hepatomegaly with severe diffuse hepatic steatosis. 3. Prior cholecystectomy and hysterectomy. Electronically authenticated by: GAVIN DEMETRI Date: 2022-03-04 11:49NoMer[facility] URINE PROFILEon 82-59-0912Ssvuhufyy Ql (U)NegativeNormal NEGATIVEJ.W. Ruby Memorial Hospital on above:Performed By: #### BMP #### [facility] [address] [address] [address] Emanuel Martinez (U)CLEARNormalCLEARJ.W. Ruby Memorial Hospital on above: Performed By: #### BMP #### [facility] [address] [address] [address] Emanuel Dang (U)YELLOWNormalYELLOWThe [facility] on above: Performed By: #### BMP #### [facility] [address] [address] [address] Emanuel Spears micrscopic examination will be performed if indicated. NormalChildren'S Hospital For RehabilitationComment on above:Performed By: #### BMP #### [facility] [address] [address] [address] Emanuel McgheeGlucose Ql (U)NegativeNormalNEGATIVEChildren'S Hospital For RehabilitationComment on above:Performed By: #### BMP #### [facility] [address] [address] [address] Emanuel McgheeHemoglobin Ql (U)LARGEAbnormalNEGCleveland Clinic Mentor Hospital Comment on above:Performed By: #### BMP #### [facility] [address] [place] [address] Dr. Emanuel McgheeKetones Ql (U)NegativeNormalNEGATIVEChildren'S Hospital For RehabilitationComment on above:Performed By: #### BMP #### [facility] [address] [place] [address] Dr. Emanuel McgheeLEUKOCYTESNegativeNormalNEGATIVEChildren'S Hospital For RehabilitationComment on above:Performed By: #### BMP #### [facility] [address] [place] [address] Dr. Emanuel McgheeNitrite Ql (U)NegativeNormalNEGATIVEChildren'S Hospital For RehabilitationComment on above:Performed By: #### BMP #### [facility] [address] [place] [address] Dr. Emanuel McgheepH (U)5.0 [pH]Normal5-9Children[facility]S Hospital For RehabilitationComment on above: Performed By: #### BMP #### [facility] [address] [place] [address] Dr. Emanuel McgheeSPEC GRAVITY>=1.830Vfsfkshw4.005-<=1.025[facility] Comment on above:Performed By: #### BMP #### [facility] [address] [place] [address] Dr. Emanuel McgheeUA PROTEINTRACENormalNEGATIVE/ TRACEChildren'S Hospital For RehabilitationComment on above:Performed By: #### BMP #### [facility] [address] [place] [address] Dr. Emanuel Thomas MICRO INDINDICATEDNormalThe [facility]ullComment on above: Performed By: #### BMP #### [facility] [address] [address] [address] Emanuel Keenan Qn (U)0.2 {Randy'U}/dLNormal0.2 - 1.0The [facility]ullComment on above:Performed By: #### BMP #### [facility] [address] [place] [address] Dr. Emanuel McgheeLIPASEon 14-19-6668Nelrlg [Catalytic activity/Vol]98.0 U/LNormal 73.0-393.0The [facility] Tr[facility]ullComment on above:Performed By: #### CBC #### [facility] [address] [place] [address] Dr. Emanuel McgheePROF 14(COMP METB)on 75-24-3163Lwajfih [Mass/Vol]4.0 g/dLNormal 3.4-5.0The [facility] TrumbullComment on above:Performed By: #### CBC #### [facility] [address] [address] [address] Emanuel McgheeAlbumin/Globulin [Mass ratio]1.1 {ratio}NormalThe [facility] TrumbullComment on above:Performed By: #### CBC #### [facility] [address] [place] [address] Dr. Emanuel Cid [Catalytic activity/Vol]93 U/UWwiwtu50-053Ndh [facility] TrumbullComment on above:Performed By: #### CBC #### [facility] [address] [place] [address] Dr. Emanuel Schmidt [Catalytic activity/Vol]26 U/QFgjxpn96-13Xjy [facility] TrumbullComment on above:Performed By: #### CBC #### [facility] [address] [place] [address] Dr. Emanuel Rendon gap [Moles/Vol]10.8 mmol/LNormalThe [facility] on above:Performed By: #### CBC #### [facility] [address] [address] [address] Emanuel McgheeAST [Catalytic activity/Vol]24 U/GPlascu10-67Wpe [facility] TrumbullComment on above:Performed By: #### CBC #### [facility] [address] [address] [address] Emanuel McgheeBilirubin [Mass/Vol]0.5 mg/dLNormal0.2-1.0The [facility] Comment on above:Performed By: #### CBC #### [facility] [address] [address] [address] Emanuel McgheeCalcium [Mass/Vol]8.5 mg/dLNormal8.5-10.1The [facility] Comment on above:Performed By: #### CBC #### [facility] [address] [address] [address] Emanuel McgheeChloride [Moles/Vol]102 mmol/CGfjugq35-848Rrs [facility] Comment on above:Performed By: #### CBC #### [facility] [address] [address] [address] Emanuel McgheeCO2 [Moles/Vol]26.0 mmol/BOllduv86.0-32.0The [facility] Comment on above:Performed By: #### CBC #### [facility] [address] [address] [address] Emanuel McgheeCreatinine [Mass/Vol]0.68 mg/dLNormal0.55-1.02The [facility]Comment on above:Performed By: #### CBC #### [facility] [address] [address] [address] Emanuel ClarkGFR-AF NAMIBIAN>60Normal>=60The [facility] on above:Performed By: #### CBC #### [facility] [address] [address] [address] Emanuel ClarkGFR-NON AF NAMIBIAN>60Normal>=60The [facility]ullComment on above:Performed By: #### CBC #### [facility] [address] [address] [address] Emanuel McgheeGlobulin (S) [Mass/Vol]3.7 g/dLNormalThSalem City HospitalComment on above:Performed By: #### CBC #### [facility] [address] [address] [address] Emanuel McgheeGlucose [Mass/Vol]147 mg/dLCritically [id number] [facility]ullComment on above:Performed By: #### CBC #### [facility] [address] [address] [address] Emanuel McgheePotassium [Moles/Vol]3.8 mmol/LNormal3.5-5.1The [facility] Comment on above:Performed By: #### CBC #### [facility] [address] [place] [address] Dr. Emanuel McgheeProtein [Mass/Vol]7.7 g/dLNormal6.4-8.2The [facility] Comment on above:Performed By: #### CBC #### [facility] [address] [place] [address] Dr. Emanuel McgheeSodium [Moles/Vol]135 mmol/LCritically [id number] [facility]ullComment on above:Performed By: #### CBC #### [facility] [address] [place] [address] Dr. Emanuel McgheeUrea nitrogen [Mass/Vol]11.0 mg/dLNormal7.0-18.0The [facility]Comment on above:Performed By: #### CBC #### [facility] [address] [place] [address] Dr. Emanuel Holder nitrogen/Creatinine [Mass ratio]16.2 mg/mgNoalThe [facility]ullComment on above:Performed By: #### CBC #### [facility] [address] [place] [address] Dr. Emanuel McgheeURINE MICROSCOPIC ONLYon [id number] SEENNormalNONE SEENThe [facility]ullComment on above:Performed By: #### CBC #### [facility] [address] [place] [address] Dr. Emanuel Medley identified Cx Nom (U)NOT INDICATEDNoalThSalem City HospitalComment on above:Performed By: #### CBC #### [facility] [address] [place] [address] Dr. Emanuel Orosco SEENNormalNONE SEENJ.[facility]. [facility] on above:Performed By: #### CBC #### [facility] [address] [place] [address] Dr. Emanuel Frey LM Nom (Urine sed)NONE SEENNormalNONE SEENChildren'S Hospital For RehabilitationComtrinity [facility] on above:Performed By: #### CBC #### [facility] [address] [place] [address] Dr. Emanuel Cmthelial cells LM Ql (Urine sed)RARENormalNONE SEEN /RAREChildren'S Hospital For RehabilitationComment on above:Performed By: #### CBC #### [facility] [address] [place] [address] Dr. Emanuel Sebastian SEENNormalNONE SEENJ.W. [facility] on above:Performed By: #### CBC #### [facility] [address] [place] [address] Dr. Emanuel CohenJevsyZZN3-20Vdabgwkl8-6DnyJ.W. [facility] on above:Performed By: #### CBC #### [facility] [address] [place] [address] Dr. Emanuel EppersonBCSILVESTRE SEENNormalNONE SEENJ.W. Ruby [facility] Hospital on above: Performed By: #### CBC #### [facility] [address] [place] [address] Dr. Emanuel Darden [id number] nitrogen [Mass/Vol]9.0 mg/dLNormal7.0-18.0 The [facility] on above:Performed By: #### CBC #### [facility] [address] [place] [address] Dr. Emanuel Robin AUTO DIFFon [id number] #0.0 103/ulNormal0.0-0.1[facility] For RehabilitationComment on above:Performed By: #### CBC #### [facility] [address] [place] [address] Dr. Emanuel McgheeBasophils/100 WBC (Bld)0.2 %Normal0.2-2.0[facility] Comment on above:Performed By: #### CBC #### [facility] [address] [place] [address] Dr. Emanuel Zarate #0.0 103/ulNormal0.0-0.7The [facility]ullComment on above: Performed By: #### CBC #### [facility] [address] [place] [address] Dr. Emanuel Clarkosinophils/100 WBC (Bld)0.1 %Critically low0.9-7.0The [facility]Comment on above:Performed By: #### CBC #### [facility] [address] [place] [address] Dr. Emanuel Clarkrythrocyte distribution width (RBC) [Ratio]11.9 %Alufja39.0-15.0 [facility] For RehabilitationComment on above:Performed By: #### CBC #### [facility] [address] [place] [address] Dr. Emanuel McgheeHematocrit (Bld) [Volume fraction]32.5 %Critically low36.0-48.0 [facility] For RehabilitationComment on above:Performed By: #### CBC #### [facility] [address] [place] [address] Dr. Emanuel McgheeHemoglobin (Bld) [Mass/Vol]11.5 g/dLCritically low12.0-16.0[facility] For RehabilitationComment on above:Performed By: #### CBC #### [facility] [address] [place] [address] Dr. Emanuel Rooney #0.06 10e3/ulCritically high0.00-0.03[facility] Comment on above:Performed By: #### CBC #### [facility] [address] [place] [address] Dr. Emanuel Rooney %0.5 %Normal0.0-0.5The [facility]Comment on above: Performed By: #### CBC #### [facility] [address] [place] [address] Dr. Emanuel Masterson #2.0 103/ulNormal1.2-3.8The [facility]ullComment on above:Performed By: #### CBC #### [facility] [address] [place] [address] Dr. Emanuel Porterhocytes/100 WBC (Bld)15.4 %Critically low20.5-60.0The [facility]Comment on above:Performed By: #### CBC #### [facility] [address] [place] [address] Dr. Emanuel Ruiz DIFF REQNONormalThe [facility]ullComment on above: Performed By: #### CBC #### [facility] [address] [place] [address] Dr. Emanuel Liao (RBC) [Entitic mass]31.0 teXpbzfg37.7-34.0The [facility]Comment on above:Performed By: #### CBC #### [facility] [address] [place] [address] Dr. Emanuel Queen (RBC) [Mass/Vol]35.4 g/dLCritically high29.9-35.2The [facility]ullComment on above:Performed By: #### CBC #### [facility] [address] [place] [address] Dr. Emanuel Queen (RBC) [Entitic vol]87.6 wFQgcuay96.0-99.0The [facility]ullComment on above:Performed By: #### CBC #### [facility] [address] [place] [address] Dr. Emanuel Andrade #0.8 103/ulNormal0.3-0.8The [facility]ullComment on above:Performed By: #### CBC #### [facility] [address] [place] [address] Dr. Emanuel Calvilloocytes/100 WBC (Bld)6.1 %Normal1.7-12.0The [facility] Comment on above:Performed By: #### CBC #### [facility] [address] [place] [address] Dr. Emanuel RiggsUT #10.1 103/ulCritically high1.4-6.5The [facility] Comment on above:Performed By: #### CBC #### [facility] [address] [place] [address] Dr. Emanuel Riggsutrophils/100 WBC (Bld)77.7 %Critically high43.0-75.0The [facility]Comment on above:Performed By: #### CBC #### [facility] [address] [place] [address] Dr. Emanuel Josephlet mean volume (Bld) [Entitic vol]9.1 fLCritically low 9.5-13.5The [facility]Comment on above:Performed By: #### CBC #### [facility] [address] [place] [address] Dr. Emanuel McgheePLT244 103/[id number] [facility]ullComment on above: Performed By: #### CBC #### [facility] [address] [place] [address] Dr. Emanuel McgheeRBC3.71 106/ulCritically low4.20-5.40The [facility]ullComment on above:Performed By: #### CBC #### [facility] [address] [place] [address] Dr. Emanuel McgheeWBC13.0 103/ulCritically high4.0-11.0The [facility]Comment on above:Performed By: #### CBC #### [facility] [address] [place] [address] Dr. Emanuel McgheeCREATININEpetr [id number] [Mass/Vol]0.69 mg/dLNormal 0.55-1.02The [facility]ullComment on above:Performed By: #### CBC #### [facility] [address] [address] [address] Emanuel ClarkGFR-AF NAMIBIAN>60Normal>=60The [facility]ullComment on above:Performed By: #### CBC #### [facility] [address] [address] [address] Emanuel ClarkGFR-NON AF NAMIBIAN>60Normal>=60The [facility]ullComment on above:Performed By: #### CBC #### [facility] [address] [address] [address] Emanuel DevlinC AUTO DIFFon [id number] #0.1 103/ulNormal0.0-0.1The [facility]ullComment on above:Performed By: #### CBC #### [facility] [address] [place] [address] Dr. Emanuel McgheeBasophils/100 WBC (Bld)0.9 %Normal0.2-2.0[facility] Comment on above:Performed By: #### CBC #### [facility] [address] [address] [address] Emanuel Zarate #0.1 103/ulNormal0.0-0.7The [facility]ullComment on above: Performed By: #### CBC #### [facility] [address] [place] [address] Dr. Emanuel Clarkosinophils/100 WBC (Bld)1.7 %Normal0.9-7.0The [facility] Comment on above:Performed By: #### CBC #### [facility] [address] [place] [address] Dr. Emanuel Clarkrythrocyte distribution width (RBC) [Ratio]11.8 %Phfrxz02.0-15.0 [facility] RehabilitationComment on above:Performed By: #### CBC #### [facility] [address] [place] [address] Dr. Emanuel McgheeHematocrit (Bld) [Volume fraction]39.4 %Vguwco27.0-48.0The [facility]ullComment on above:Performed By: #### CBC #### [facility] [address] [place] [address] Dr. Emanuel McgheeHemoglobin (Bld) [Mass/Vol]14.3 g/uGUlglaa24.0-16.0The [facility]ullComment on above:Performed By: #### CBC #### [facility] [address] [place] [address] Dr. Emanuel Rooney #0.04 10e3/ulCritically high0.00-0.03The [facility] Comment on above:Performed By: #### CBC #### [facility] [address] [place] [address] Dr. Emanuel Rooney %0.5 %Normal0.0-0.5The [facility]ullComment on above: Performed By: #### CBC #### [facility] [address] [place] [address] Dr. Emanuel Masterson #2.6 103/ulNormal1.2-3.8The [facility]ullComment on above:Performed By: #### CBC #### [facility] [address] [place] [address] Dr. Emanuel Porterhocytes/100 WBC (Bld)34.1 %Cmnunx84.5-60.0The [facility]ullComment on above:Performed By: #### CBC #### [facility] [address] [place] [address] Dr. Emanuel CervantesUAL DIFF REQNONormalThe [facility]ullComment on above: Performed By: #### CBC #### [facility] [address] [place] [address] Dr. Emanuel Queen (RBC) [Entitic mass]31.0 ivYkutsp27.7-34.0The [facility]ullComment on above:Performed By: #### CBC #### [facility] [address] [place] [address] Dr. Emanuel Queen (RBC) [Mass/Vol]36.3 g/dLCritically high29.9-35.2The [facility]ullComment on above:Performed By: #### CBC #### [facility] [address] [address] [address] Emanuel QueenV (RBC) [Entitic vol]85.3 qTOqgyyc39.0-99.0The [facility]ullComment on above:Performed By: #### CBC #### [facility] [address] [place] [address] Dr. Emanuel Andrade #0.5 103/ulNormal0.3-0.8The [facility]ullComment on above:Performed By: #### CBC #### [facility] [address] [place] [address] Dr. Emanuel Calvilloocytes/100 WBC (Bld)6.7 %Normal1.7-12.0The [facility] on above:Performed By: #### CBC #### [facility] [address] [place] [address] Dr. Emanuel RiggsUT #4.3 103/ulNormal1.4-6.5The [facility]ullComment on above:Performed By: #### CBC #### [facility] [address] [place] [address] Dr. Emanuel Riggsutrophils/100 WBC (Bld)56.1 %Nuvcww29.0-75.0The [facility]ullComment on above:Performed By: #### CBC #### [facility] [address] [place] [address] Dr. Emanuel Josephlet mean volume (Bld) [Entitic vol]9.0 fLCritically low 9.5-13.5The [facility]ullComment on above:Performed By: #### CBC #### [facility] [address] [place] [address] Dr. Emanuel McgheePLT250 103/ykWipehr660-473Qrl [facility]ullComment on above: Performed By: #### CBC #### [facility] [address] [place] [address] Dr. Emanuel McgheeRBC4.62 106/ulNormal4.20-5.40The [facility]ullComment on above:Performed By: #### CBC #### [facility] [address] [place] [address] Dr. Emanuel McgheeWBC7.7 103/ulNormal4.0-11.0The [facility]ullComtr[facility] on above: Performed By: #### CBC #### [facility] [address] [place] [address] Dr. Emanuel McgheePOINT OF CARE GLUCOSEon [id number] [Mass/Vol]161 mg/dL Critically xytn19-520Ejt [facility]ullComment on above:Performed By: #### POCGLUC #### [facility] [address] [place] [address] Dr. Emanuel McgheePREG HCG QUALon 60-00-5887JGGFDFBQR, QUALNegativeNormalNEGATIVE The [facility]Com[facility] on above:Performed By: #### PREG #### [facility] [address] [place] [address] Dr. Emanuel DevlinC AUTO DIFFon [id number] #0.1 103/ulNormal0.0-0.1The [facility]ullComment on above:Performed By: #### CBC #### [facility] [address] [place] [address] Dr. Emanuel McgheeBasophils/100 WBC (Bld)1.1 %Normal0.2-2.0[facility] Comment on above:Performed By: #### CBC #### [facility] [address] [place] [address] Dr. Emanuel Zarate #0.1 103/ulNormal0.0-0.7The [facility] on above: Performed By: #### CBC #### [facility] [address] [place] [address] Dr. Emanuel Clarkosinophils/100 WBC (Bld)1.1 %Normal0.9-7.0[facility] Comment on above:Performed By: #### CBC #### [facility] [address] [place] [address] Dr. Yilan ChangErythrocyte distribution width (RBC) [Ratio]11.7 %Mmimaw46.0-15.0 The [facility]ullComment on above:Performed By: #### CBC #### [facility] [address] [place] [address] Dr. Emanuel McgheeHematocrit (Bld) [Volume fraction]39.6 %Toxyxg90.0-48.0The [facility]ullComment on above:Performed By: #### CBC #### [facility] [address] [place] [address] Dr. Emanuel McgheeHemoglobin (Bld) [Mass/Vol]14.1 g/qXKklpgr44.0-16.0The [facility]ullComment on above:Performed By: #### CBC #### [facility] [address] [place] [address] Dr. Emanuel Rooney #0.02 10e3/ulNormal0.00-0.03The [facility]ullComment on above:Performed By: #### CBC #### [facility] [address] [place] [address] Dr. Emanuel Rooney %0.3 %Normal0.0-0.5The [facility]ullComment on above: Performed By: #### CBC #### [facility] [address] [place] [address] Dr. Emanuel Masterson #2.0 103/ulNormal1.2-3.8The [facility]ullComment on above:Performed By: #### CBC #### [facility] [address] [place] [address] Dr. Emanuel Farrellmphocytes/100 WBC (Bld)31.1 %Amrawx88.5-60.0The [facility]ullComment on above:Performed By: #### CBC #### [facility] [address] [place] [address] Dr. Emanuel CervantesUAL DIFF REQNONormalThe [facility]ullComment on above: Performed By: #### CBC #### [facility] [address] [place] [address] Dr. Emanuel Liao (RBC) [Entitic mass]30.9 wgPcnixg61.7-34.0The [facility]ullComment on above:Performed By: #### CBC #### [facility] [address] [place] [address] Dr. Emanuel Queen (RBC) [Mass/Vol]35.6 g/dLCritically high29.9-35.2The [facility]ullComment on above:Performed By: #### CBC #### [facility] [address] [place] [address] Dr. Emanuel Queen (RBC) [Entitic vol]86.7 uBWgqyvg64.0-99.0The [facility]ullComment on above:Performed By: #### CBC #### [facility] [address] [place] [address] Dr. Emanuel Andrade #0.4 103/ulNormal0.3-0.8The [facility]ullComment on above:Performed By: #### CBC #### [facility] [address] [place] [address] Dr. Emanuel Calvilloocytes/100 WBC (Bld)6.6 %Normal1.7-12.0The [facility] Comment on above:Performed By: #### CBC #### [facility] [address] [place] [address] Dr. Emanuel Foote #3.8 103/ulNormal1.4-6.5The [facility]ullComment on above:Performed By: #### CBC #### [facility] [address] [place] [address] Dr. Emanuel Riggsutrophils/100 WBC (Bld)59.8 %Gzumno57.0-75.0The [facility]ullComment on above:Performed By: #### CBC #### [facility] [address] [place] [address] Dr. Emanuel Josephlet mean volume (Bld) [Entitic vol]9.1 fLCritically low 9.5-13.5The [facility]ullComment on above:Performed By: #### CBC #### [facility] [address] [place] [address] Dr. Emanuel McgheePLT266 103/[id number] [facility]ullComment on above: Performed By: #### CBC #### [facility] [address] [place] [address] Dr. Emanuel McgheeRBC4.57 106/ulNormal4.20-5.40The [facility]ullComment on above:Performed By: #### CBC #### [facility] [address] [place] [address] Dr. Emanuel McgheeWBC6.4 103/ulNormal4.0-11.0The [facility]ullComment on above: Performed By: #### CBC #### [facility] [address] [place] [address] Dr. Emanuel McgheeCovid-19 PCR ([facility])on [id number]-CoV-2 (COVID-19) RNA JEF+probe Ql (Unsp spec)Not detectedNormalNOT DETECTEDThe [facility] Comment on above:Result Comment: This test is not yet approved or cleared by the [place] FDA. When there are no FDA-approved or cleared tests available, and other criteria are met, FDA can make tests available under an emergency access mechanism called an Emergency Use Authorization (EUA). The EUA for this test is supported by the [employer] of Health and Human Service's (HHS's) declaration that circumstances exist to justify the emergency use of in vitro diagnostics for the detection and/or diagnosis of the virus that causes COVID- 19. This EUA will remain in effect (meaning this test can be used) for the duration of the COVID-19 declaration justifying emergency of IVDs, unless it is terminated or revoked by FDA (after which the test may no longer be used). When diagnostic testing is negative, the possibility of a false negative should be considered in the context of a patient's recent exposures and the presence of clinical signs and symptoms consistent with SARS-CoV-2.Performed By: #### BMP #### [facility] [facility] [address] [place] [address] Dr. Emanuel McgheePREYessi QUANT HCGon 13-28-1624TGK QUANT2 mIU/mLNormalChildren'S Hospital For RehabilitationComment on above:Performed By: #### CBC #### [facility] [address] [place] [address] Dr. Emanuel Delgado RANGESEE BELOWSt. John of God HospitalComment on above: Result Comment: 5-50 0.2-1 WEEK 50-500 1-2 WEEKS 100-5,000 2-3 WEEKS 500-10,000 3-4 WEEKS 1,000-50,000 4-5 WEEKS 10,000-100,000 5-6 WEEKS 15,000-200,000 6-8 WEEKS 10,000-100,000 2-3 MONTHSPerformed By: #### CBC #### [facility] [address] [place] [address] Dr. Emanuel McgheeTYPE AND SCREENon 38-50-2758QJAZ AND SCREENNegativeSt. John of God HospitalComment on above:Performed By: #### BMP #### [facility] [address] [place] [address] Dr. Emanuel Paris ACOG PANEL 2: 30 to 64on 08-24-2021..[facility] God HospitalComment on above:Result Comment: Performed at: WBPerformed By: #### CBC #### [facility] [address] [place] [address] Dr. Emanuel Mederos Gdln ACOG Wdytwuh31-16QucpovGvpSt. John of God HospitalComtrinity health [facility] on above:Performed By: #### CBC #### [facility] [address] [place] [address] Dr. Emanuel McgheeDIAGNOSIS:CommentAbHolmes County Joel Pomerene Memorial HospitalComtrinity health [facility] hospital on above: Result Comment: EPITHELIAL CELL ABNORMALITY. ATYPICAL SQUAMOUS CELLS OF UNDETERMINED SIGNIFICANCE (ASC-US). Performed at: WBPerformed By: #### CBC #### [facility] [address] [place] [address] Dr. Castellanos ChangElectronically signed by:[facility] Comment on above:Result Comment: Angelica Arias MD, Pathologist Performed at: WBPerformed By: #### CBC #### [facility] [address] [place] [address] Dr. Emanuel McgheeHPEsperanza AptimaPositiveAbnormalNegativeThe [facility] Tr[facility]ullComment on above:Result Comment: This nucleic acid amplification test detects fourteen high-risk HPV types (16,18,31,33,35,39,45,51,52,56,58,59,66,68) without differentiation. Performed at: =GPerformed By: #### CBC #### [facility] [address] [place] [address] Dr. Emanuel McgheeMethodology:CommentNoShelby Memorial HospitalComtrinity health [facility] hospital on above: Result Comment: This liquid based ThinPrep(R) pap test was screened with the use of an image guided system. Performed at: WBPerformed By: #### CBC #### [facility] [address] [place] [address] Dr. Emanuel McgheeNote:CommentNoShelby Memorial HospitalComtrinity health [facility] hospital on above:Result Comment: The Pap smear is a screening test designed to aid in the detection of premalignant and malignant conditions of the uterine cervix. It is not a diagnostic procedure and should not be used as the sole means of detecting cervical cancer. Both false-positive and false-negative reports do occur. . Performed at: WBPerformed By: #### CBC #### [facility] [address] [place] [address] Dr. Emanuel McgheePathologist Provided [id number]. John of God Hospital Comment on above:Result Comment: R87.610 Performed at: WBPerformed By: #### CBC #### [facility] [address] [place] [address] Dr. Emanuel McgheePerformed by:CommentNoMarion Hospital on above: Result Comment: Faith Bose, Hospitalist Nocturnist Physician (ASCP) Performed at: WBPerformed By: #### CBC #### [facility] [address] [place] [address] Dr. Emanuel McgheeRecommendation:CommentThe University of [facility] on above:Result Comment: Suggest follow up as clinically appropriate. Performed at: WBPerformed By: #### CBC #### [facility] [address] [place], [place] [address] Dr. Emanuel McgheeSpecimen adequacy:CommentSt. John of God HospitalComment on above:Result Comment: Satisfactory for evaluation. Endocervical and/or squamous metaplastic cells (endocervical component) are present. Performed at: WBPerformed By: #### CBC #### [facility] [address] [place] [address] [address] Emanuel McgheeALBUMIN, RANDOM URINE W/CREATININEon 59-67-9611NDFGAWJ, URINE0.8 mg/dLNormalSee Note:Quest DiagnosticsComment on above:Result Comment: Reference Range: Reference Range Not establishedPerformed By: #### 79046, 6517, 13178, 11084, 7600, 496 #### [facility] [place] [address] [employer] Tender: Ernie Martin MDALBUMIN/CREATININE RATIO, RANDOM URINE8 mcg/mg creatNormal<30Quest DiagnosticsComment on above:Result Comment: The ADA defines abnormalities in albumin excretion as follows: Albuminuria Category Result (mcg/mg creatinine) Normal to Mildly increased <30 Moderately increased 30-299 Severely increased > OR = 300 The ADA recommends that at least two of three specimens collected within a 3-6 month period be abnormal before considering a patient to be within a diagnostic category.Performed By: #### 33020, 6517, 62226, 45970, 7600, 496 #### [facility] [place] [address] [employer] Tender: Ernie GONCALVESreatinine (U) [Mass/Vol]99 mg/qGPvjfwi24-211 Quest DiagnosticsComment on above:Performed By: #### 73294, 6517, 36100, 13377, 7600, 496 #### [facility] [place] [address] [employer] Tender: Ernie GONCALVESOMPREHENSIVE METABOLIC PANELon 04-19-2021 Albumin [Mass/Vol]4.5 g/dLNormal3.6-5.1Quest DiagnosticsComment on above: Performed By: #### 64209, 6517, 28409, 85637, 7600, 496 #### [facility] of [place] [address] [employer] Tender: Ernie Martin MDAlbumin/Globulin [Mass ratio]1.8 {ratio}Normal 1.0-2.5Quest DiagnosticsComment on above:Performed By: #### 67495, 6517, 80019, 09345, 7600, 496 #### [facility] of [place] [address] [employer] Tender: Ernie Martin MDALP [Catalytic activity/Vol]67 U/WJgwkdc45-520 Quest DiagnosticsComment on above:Performed By: #### 05617, 6517, 62796, 25715, 7600, 496 #### [facility] of [address], [address] [place] [address] [employer] Tender: Ernie Martin MDALT [Catalytic activity/Vol]22 U/LNormal6-29 Quest DiagnosticsComment on above:Performed By: #### 94822, 6517, 40537, 43417, 7600, 496 #### [facility] of [place] [address] [employer] Tender: Ernie Martin MDAST [Catalytic activity/Vol]24 U/TRdkixs89-71 [facility] DiagnosticsComment on above:Performed By: #### 37765, 6517, 35464, 18000, 7600, 496 #### [facility] of [place] [address] [employer] Tender: Ernie Martin MDBilirubin [Mass/Vol]0.9 mg/dLNormal0.2-1.2 Quest DiagnosticsComment on above:Performed By: #### 82749, 6517, 80990, 10577, 7600, 496 #### [facility] of [address], [address] [place] [address] [employer] Tender: Ernie Martin MDBUN/CREATININE RATIONOT APPLICABLENormal6-22 Quest DiagnosticsComment on above:Performed By: #### 46780, 6517, 51251, 97722, 7600, 496 #### [facility] of [address], [address] [place] [address] [employer] Tender: Ernie Martin MDCalcium [Mass/Vol]9.0 mg/dLNormal8.6-10.2Quest DiagnosticsComment on above:Performed By: #### 27216, 6517, 20584, 59283, 7600, 496 #### [facility] of [place] [address] [employer] Tender: Ernie Martin MDChloride [Moles/Vol]103 mmol/TGzkhea77-289 Quest DiagnosticsComment on above:Performed By: #### 92616, 6517, 26688, 46727, 7600, 496 #### [facility] of [place] [address] [employer] Tender: Ernie Martin MDCO2 [Moles/Vol]26 mmol/YJkjhiq82-12Gdxry DiagnosticsComment on above:Performed By: #### 45727, 6517, 76055, 59856, 7600, 496 #### [facility] of [place] [address] [employer] Tender: Ernie Martin MDCreatinine [Mass/Vol]0.57 mg/dLNormal0.50-1.10 Quest DiagnosticsComment on above:Performed By: #### 69716, 6517, 36028, 81810, 7600, 496 #### [facility] of [place] [address] [employer] Tender: Ernie Martin MDeGFR NON-AFR. TWXVQCSB159 mL/min/1.88l2Lvrdfj> OR = 60Quest DiagnosticsComment on above:Performed By: #### 35264, 6517, 83087, 11203, 7600, 496 #### [facility] [place] [address] [employer] Tender: Ernie Martin MDGFR/1.73 sq M.predicted among blacks MDRD (S/P/Bld) [Vol rate/Area]133 mL/min/{1.73_m2}Normal> OR = 60[facility] Comment on above:Performed By: #### 54910, 6517, 74750, 21354, 7600, 496 #### [facility] [place] [address] [employer] Tender: Ernie Martin MDGlobulin (S) [Mass/Vol]2.5 g/dLNormal1.9-3.7 Quest DiagnosticsComment on above:Performed By: #### 16334, 6517, 96023, 94062, 7600, 496 #### [facility] [place] [address] [employer] Tender: Ernie Martin MDGlucose [Mass/Vol]86 mg/dVFeluqf67-47Xddin DiagnosticsComment on above:Result Comment: Fasting reference intervalPerformed By: #### 84168, 6517, 79478, 17871, 7600, 496 #### [facility] [place] [address] [employer] Tender: Ernie Martin MDPotassium [Moles/Vol]3.8 mmol/LNormal3.5-5.3 [facility] DiagnosticsComment on above:Performed By: #### 56964, 6517, 16133, 44542, 7600, 496 #### [facility] [place] [address] [employer] Tender: Ernie Martin MDProtein [Mass/Vol]7.0 g/dLNormal6.1-8.1Quest DiagnosticsComment on above:Performed By: #### 94223, 6517, 61309, 84021, 7600, 496 #### [facility] [address], [address] [place] [address] [employer] Tender: Ernie ROQUEodium [Moles/Vol]137 mmol/USyguqf314-174Wcixy DiagnosticsComment on above:Performed By: #### 54504, 6517, 41879, 85116, 7600, 496 #### [facility] [address], [address] [place] [address] [employer] Tender: Ernie Martin MDUrea nitrogen [Mass/Vol]10 mg/dLNormal7-25 Quest DiagnosticsComment on above:Performed By: #### 34952, 6517, 59724, 67968, 7600, 496 #### [facility] [address], [address] [place] [address] [employer] Tender: Ernie Martin MDHEMOGLOBIN A1con 45-11-8511VVVPWHOAVP A1c5.4 % of total HgbNormal<5.7Quest DiagnosticsComment on above:Result Comment: For the purpose of screening for the presence of diabetes: <5.7% Consistent with the absence of diabetes 5.7-6.4% Consistent with increased risk for diabetes (prediabetes) > or =6.5% Consistent with diabetes This assay result is consistent with a decreased risk of diabetes. Currently, no consensus exists regarding use of hemoglobin A1c for diagnosis of diabetes in children. According to [place] [employer] Association (ADA) guidelines, hemoglobin A1c <7.0% represents optimal control in non- diabetic patients. Different metrics may apply to specific patient populations. Standards of Medical Care in Diabetes(ADA).Performed By: #### 65786, 6517, 58594, 37512, 7600, 496 #### [facility] [address], [address] [place] [address] [employer] Tender: Ernie Martin MDLIPID PANEL, STANDARDon 03-34-4876Yjdujjxcnjg [Mass/Vol]209 mg/dLHigh<200Quest DiagnosticsComment on above:Performed By: #### 02702, 6517, 95460, 17880, 7600, 496 #### [facility] [address], [address] [place] [address] [employer] Tender: Ernie GONCALVESholesterol in HDL [Mass/Vol]48 mg/dLLow> OR = 50Quest DiagnosticsComment on above:Performed By: #### 22894, 6517, 97976, 38232, 7600, 496 #### [facility] [address], [address] [place] [address] [employer] Cut[employer] Machine Tender: Ernie GONCALVESholesterol in LDL [Mass/Vol]116 mg/dLHigh [facility] DiagnosticsComment on above:Result Comment: Reference range: <100 Desirable range <100 mg/dL for primary prevention; <70 mg/dL for patients with CHD or diabetic patients with > or = 2 CHD risk factors. LDL-C is now calculated using the Donte calculation, which is a validated novel method providing better accuracy than the Friedewald equation in the estimation of LDL-C. Sonu SS et al. TARI. 2013;310(19): 1066-6908 (http://education.[employer].IMImobile/faq/EIL382)Performed By: #### 25331, 6517, 39572, 43659, 7600, 496 #### [facility] [address], [address] [place] [address] [employer] Cut[employer] Machine Tender: Ernie Patricia.total/Cholesterol in HDL [Mass ratio]4.4 {ratio}Normal<5.0Quest DiagnosticsComment on above:Performed By: #### 03225, 6517, 32126, 24779, 7600, 496 #### [facility] [address], [address] [place] [address] [employer] Cutting Machine Tender: Ernie SOLANO HDL DAAYVGGEXUL055 mg/dL (calc)High<130 Quest DiagnosticsComment on above:Result Comment: For patients with diabetes plus 1 major ASCVD risk factor, treating to a non-HDL-C goal of <100 mg/dL (LDL-C of <70 mg/dL) is considered a therapeutic option.Performed By: #### 69000, 6517, 45108, 33188, 7600, 496 #### [facility] [address], [address] [place] [address] [employer] Cut[employer] Tender: Ernie Martin MDTriglyceride [Mass/Vol]318 mg/dLHigh<150Quest DiagnosticsComment on above:Result Comment: If a non-fasting specimen was collected, consider repeat triglyceride testing on a fasting specimen if clinically indicated. Lyndon et al. J. of Clin. Lipidol. 2015;9:129-169.Performed By: #### 85102, 6517, 91655, 25868, 7600, 496 #### [facility] [address], [address] [place] [address] [employer] Cutting Machine Tender: Ernie BEE+FREE T4on 03-37-6141Btoz T4 [Mass/Vol]1.2 ng/dLNormal0.8-1.8Quest DiagnosticsComment on above:Performed By: #### 98726, 6517, 09579, 34820, 7600, 496 #### [facility] [address], [address] [place] [address] [employer] Cut[employer] Machine Tender: Ernie BEE Qn0.06 m[IU]/LLowQuest DiagnosticsComment on above:Result Comment: Reference Range > or = 20 Years 0.40-4.50 Ranges First trimester 0.26-2.66 Second trimester 0.55-2.73 Third trimester 0.43-2.91Performed By: #### 82448, 6517, 09170, 97125, 7600, 496 #### [facility] [address], [address] [place] [address] [employer] Cut[employer] Machine Tender: Ernie Martin MDVITAMIN D,25-OH,TOTAL,IAon 58-53-0669KSENMDX D,25-OH,TOTAL,IA10 ng/zRSaj84-120Crdot DiagnosticsComment on above:Result Comment: Vitamin D Status 25-OH Vitamin D: Deficiency: <20 ng/mL Insufficiency: 20 - 29 ng/mL Optimal: > or = 30 ng/mL For 25-OH Vitamin D testing on patients on D2-supplementation and patients for whom quantitation of D2 and D3 fractions is required, the QuestAssureD(TM) 25-OH VIT D, (D2,D3), LC/MS/MS is recommended: order code 67013 (patients >2yrs). See Note 1 Note 1 For additional information, please refer to http://education.[employer].IMImobile/faq/GBH612 (This link is being provided for informational/ educational purposes only.)Performed By: #### 57069, 6517, 29107, 79643, 7600, 496 #### [facility] [address], [address] [place] [address] [employer] Cutting Machine Tender: Ernie Martin MD Vital Signs Date TimeVital SignValuePerforming UoweepfgcRfzrmvch62-54-1218 10:19-0500Body agznzk436 cmDenD square nv DO Work Phone: [facility]11-[facility]-2025 10:19-0500Body mass index (BMI) [Ratio]38.2 kg/o2RzsqbkD square nv DO Work Phone: [facility]11-03-2025 10:19-0500Body jdjyorgvegq91.01 [degF]RitchieD square nv DO Work Phone: [facility]cher[facility] Ogvqjb31-83-4567 10:19-0500Body mguvdp66.8 kgDennis Fancorps DO Work Phone: [facility]11-03-2025 10:19-0500Diastolic blood qmvlmlhu72 mm[Hg]ESKY DO Work Phone: [facility]11-03-2025 10:19-0500Heart rate 63 /minDLibraryThingis [employer] DO Work Phone: [facility]11-03-2025 10:19-0500 Respiratory rate20 /minDennis [employer] DO Work Phone: [facility]11-03-2025 10:19-3813VrP4% (BldA) [Mass fraction]97 %Ritchie Muellerlong DO Work Phone: [facility] HospitalWaterplayUSA Gqdkim34-12-5644 10:19-0500Systolic blood mdgminao785 mm[Hg]Ritchie Muellerlong DO Work Phone: [facility] [employer] Rexrpu28-68-0469 16:14-0400Body xcnoho613 cmDennis Amilong DO Work Phone: [facility] [employer] Waavjl02-32-9646 16:14-0400Body mass index (BMI) [Ratio]35.51 kg/p2Pyjibk Furlong DO Work Phone: [facility] [employer] Rcnuwj58-74-3580 16:14-0400Body pflewfdhhdd46.1 [degF]Ritchie Trevizong DO Work Phone: [facility] [employer] Lxeqjt89-10-4165 16:14-0400Body fsmyce41.9 kgDenednnis Muellerlong DO Work Phone: [facility] [employer] Dwuouo70-91-1994 16:14-0400Diastolic blood msvacpbf96 mm[Hg]Ritchie Muellerlong DO Work Phone: [facility] [employer] Qebgqg71-48-7248 16:14-0400Heart rate 88 /minDyairis Amilong DO Work Phone: [facility] [employer] Dfrglm77-68-3259 16:14-0400 Respiratory rate18 /minDennis Amilong DO Work Phone: [facility]06-24-2025 16:14-1113GgE9% (BldA) [Mass fraction]96 %Ritchie Muellerlong DO Work Phone: [facility] [employer] Btlcjg90-46-3081 16:14-0400Systolic blood jzdeecah848 mm[Hg]Ritchie Muellerlong DO Work Phone: [facility] [employer] Ieqblo81-20-8450 15:11-0400Body bduuux714.2 cmDennis Amilong DO Work Phone: [facility] [employer] Atlssn64-36-0759 15:11-0400Body mass index (BMI) [Ratio]34.09 kg/s3Peujny Furlong DO Work Phone: [facility] [employer] Opipcc29-73-1984 15:11-0400Body souffzpgljt27.9 [degF]Ritchie Muellerlong DO Work Phone: [facility] [employer] Bbldfy36-54-9334 15:11-0400Body ystotx92.41 kgDendennis Muellerlong DO Work Phone: [facility] [employer] Koknyd45-30-9895 15:11-0400Diastolic blood mvhzoxyx98 mm[Hg]Ritchie Muellerlong DO Work Phone: [facility] [employer] Cebvxw07-36-0419 15:11-0400Heart rate 86 /Kalinis Amilong DO Work Phone: [facility] [employer] Kwrjfl28-01-6213 15:11-0400 Respiratory rate18 /minDyairis Joselineng DO Work Phone: [facility] [employer] Hpqffp87-10-2702 15:11-8024HeY0% (BldA) [Mass fraction]97 %Ritchie Trevizong DO Work Phone: [facility] [employer] Rqxgne37-82-4036 15:11-0400Systolic blood qcydfnji176 mm[Hg]Ritchie Trevizong DO Work Phone: [facility]08-09-2024 08:18-0400Blood Pressure LocationPafaisal GIL [facility]08-09-2024 08:18-0400Body zmqnenuctsc99.6 [degF]Dean GIL [facility]08-09-2024 08:18-0400Diastolic blood gpupwfbn70 mm[Hg]Deansangeeta GIL [facility]08-09-2024 08:18-0400Heart rate62 /minPatrick GIL [facility]08-09-2024 08:18-0400Respiratory rate16 /minPatrick GIL [facility]08-09-2024 08:18-0400Systolic blood renglhoy904 mm[Hg]Dean GIL [facility]08-07-2023 09:46-0400Diastolic blood yxkfbexd43 mm[Hg]Dean GIL [facility]08-07-2023 09:46-0400Mean blood ttlqurhh402 mm[Hg]Dean GIL [facility]08-07-2023 09:46-0400Systolic blood ehgtxksa909 mm[Hg]Dean GIL [facility]08-07-2023 09:23-0400Diastolic blood aubuwpjz77 mm[Hg]Dean GIL [facility]08-07-2023 09:23-0400Heart rate81 /minPatrick GIL [facility]08-07-2023 09:23-0400Systolic blood gyadwyrv168 mm[Hg]Dean GIL [facility]01-23-2023 12:31-0500Blood Pressure LocationPatrick GIL [facility]01-23-2023 12:31-0500Diastolic blood qvcghoql85 mm[Hg]Dean GIL [facility]01-23-2023 12:31-0500Heart rate70 /minPatrick VPEP [facility]01-23-2023 12:31-0500Respiratory rate16 /minPatrick GIL [facility]01-23-2023 12:31-0500Systolic blood bubuutzu294 mm[Hg]Dean GIL [facility]01-11-2023 14:48-0500Blood Pressure LocationPatrick VPEP [facility]01-11-2023 14:48-0500Diastolic blood lireasmy22 mm[Hg]Dean GIL [facility]01-11-2023 14:48-0500Heart rate67 /minPaHive7k VPEP [facility]01-11-2023 14:48-0500Systolic blood efipxacu147 mm[Hg]Dean GIL [facility] Encounters Encounter DateEncounter TypeCare ProviderFacilityStart: 01-12-2025 End: 63-16-6535Jsygfs OnlyRitchie Trevizong DO Work Phone: [facility] MedicineStart: 01-05-2025 End: 97-93-7547Cxyqgfu encounter statusRitchie Dickson Furlong DO Work Phone: [facility] SystemStart: 01-05-2025 End: 40-48-6499Tzctkhna preventive med est patient 40-64yrsDenneduardo Chaidez DO Work Phone: [facility] - Family MedicineComment on above:Well adult exam (Primary Dx); Type 2 diabetes mellitus without complication, without long-term current use of insulin ([facility]); Acquired hypothyroidism; Essential hypertension; Class 2 severe obesity due to excess calories with serious comorbidity and body mass index (BMI) of38.0 to 38.9 in adult; Paresthesia and pain of both upper extremities; Need for Streptococcus pneumoniae vaccination; Need for pneumococcal vaccine; Need for immunization against influenzaStart: 01-05-2025 End: 51-35-5758iqkwoqzylnONRBBGCrete Area Medical Center Ambulatory PPGStart: 90-82-0532Rwnoazrjs for general adult medical examination without abnormal findingsSaint [facility] Ambulatory PPGStart: 11-19-2024 End: 88-84-0015BfwmkvYimlqj G Furhazel DO Work Phone: [facility] - Family MedicineComment on above:Hypothyroidism, unspecifiedStart: 08-26-2024 End: 34-54-5760Bmjqib outpatient visit 15 minutesRitchie Chaidez DO Work Phone: [facility] - Family MedicineComment on above:Strain of calf muscle, left, initial encounter (Primary Dx)Start: 08-26-2024 End: 79-05-1496kqfjurjevjUPUDIPCrete Area Medical Center Ambulatory PPGStart: 08-21-2024 End: 60-08-2025OtmvmpLmjowj Yessi Chaidez DO Work Phone: [facility] - Family MedicineComment on above:Hypothyroidism, unspecifiedStart: 07-13-2024 End: 76-61-0677VxintuTnofea G Furlong DO Work Phone: [facility] Physicians Internal Medicine - Family MedicineComment on above:Mixed hyperlipidemiaStart: 07-11-2024 End: 22-17-6093XmlmywBlqdxw G Furlong DO Work Phone: [facility] - Family MedicineComment on above:Hypothyroidism, unspecifiedStart: 06-09-2024 End: 17-38-3411wgznccgnzvSBLTBVBrigid Chish[facility] HospitalStart: 04-07-2024 End: 42-30-8627LazpzgPcbqrm G Furlong DO Work Phone: [facility] Physicians Internal Medicine - Family MedicineComment on above:Type 2 diabetes mellitus without complication, without long-term current use of insulin ([facility]); Essential hypertension; Type 2 diabetes mellitus without complications ([facility]); AnxietyStart: 01-02-2024 End: 69-29-8229Ywxnjxsvd encounterAllmellissa [facility] VascularStart: 12-20-2023 End: 27-48-6106nqfhhtegphEXEHTE G FURLONGProMedica Glenbeigh Hospitaltart: 09-99-4618Rnlnxmtlw for general adult medical examination without abnormal findingsRITCHIE MUELLERWAYNE COUNTY HOSPITAL AND CLIN[facility] SYSTEMKnox Community Hospitalletitia Glenbeigh Hospitaltart: 12-20-2023 End: 70-40-2750Ahayuzr encounter statusRitchie Chaidez DO Work Phone: [facility] SystemStart: 12-20-2023 End: 42-18-6026Mymouccv preventive med est patient 40-64yrsDennis Yessi Chaidez DO Work Phone: [facility] Physicians Internal Medicine - Family MedicineComment on above:Well adult health check (Primary Dx); Type 2 diabetes mellitus without complication, without long-term current use of insulin ([facility]); Essential hypertension; Mixed hyperlipidemia; Vitamin D deficiency; 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, left; Encounter for screening mammogram for malignant neoplasm of breast; Need for immunization against influenza; Acquired hypothyroidism; Class 1 obesity due to excess calories with serious comorbidity and body mass index (BMI) of 34.0 to 34.9 in adultStart: 12-09-2023 End: 10-44-9978YuiimnPppzmw G Furlong DO Work Phone: [facility] Physicians Internal Medicine - Family MedicineComment on above:Hypothyroidism, unspecifiedStart: 11-23-2023 End: 71-08-9044Lkcmkk OnlyDennis Yessi Furlong DO Work Phone: [employer] Physicians Internal Medicine - Family MedicineComment on above:Mixed hyperlipidemiaStart: 11-16-2023 End: 03-93-9544IqwuywEbjrxf G Furlong DO Work Phone: [facility] Phys[facility] Internal Medicine - Family MedicineComment on above:Mixed hyperlipidemiaStart: 11-13-2023 End: 06-50-5289MkshrlBlvy Cooper CMAProMedica Physicians Internal Medicine - Family MedicineComment on above:Mixed hyperlipidemiaStart: 11-12-2023 End: 63-31-0649EcnvzlGrdiZhao Chilel APRN-WHEEL MILL OPERATOR Work Phone: [facility] Physicians Internal Medicine - Family MedicineComment on above:Mixed hyperlipidemia; Type 2 diabetes mellitus without complications ([facility])Anxiety; Mixed hyperlipidemia; Type 2 diabetes mellitus without complications ([facility])Type 2 diabetes mellitus without complication, without long-term current use of insulin ([facility]); Essential hypertension; AnxietyStart: 10-22-2023 End: 11-19-2815WhvdcbGpyrwh Yessi Furlong DO Work Phone: [facility] Physicians Internal Medicine - Family MedicineComment on above:Type 2 diabetes mellitus without complication, without long-term current use of insulin ([facility])Start: 10-12-2023 End: 56-33-8783gpnchevlymWsopkug R WATERSFacility:EU BellevueStart: 10-12-2023 End: 98-35-3203Mbmicvv encounter procedureDean GIL [facility] [place] start: 09-13-2023 End: 05-95-6966Tmrzioflj encounterDennis G Furlong DO Work Phone: [facility] Physicians Internal Medicine - Family MedicineStart: 09-11-2023 End: 90-30-3620FcuxdyMcnolm G Furlong DO Work Phone: [facility] Physicians Internal Medicine - Family MedicineComment on above:Hypothyroidism, unspecifiedStart: 06-19-2023 End: 36-98-4741ZbocohTjyfo Huan CMAProMedical Center [facility] Physicians Internal Medicine - Family MedicineComment on above:Hypothyroidism, unspecifiedStart: 06-15-2023 End: 04-76-7332GdpswxYghc Lana Ranjana CRUTCH MAKER-WHEEL MILL OPERATOR Work Phone: [facility] Physicians Internal Medicine - Family MedicineComment on above:Type 2 diabetes mellitus without complications ([facility])Start: 06-14-2023 End: 76-19-4459ErakveJxio Rose Kuns CRUTCH MAKER-WHEEL MILL OPERATOR Work Phone: [facility] Physicians Internal Medicine - Family MedicineComment on above:Mixed hyperlipidemiaStart: 74-81-9924QmkwrnWzryqv G Furlong DO Work Phone: [facility] Physicians Internal Medicine - Family MedicineComment on above:Type 2 diabetes mellitus without complication, without long-term current use of insulin ([facility])Start: 13-01-6591Eclldo OnlyRitchie Chaidez DO Work Phone: [facility] Physicians Internal Medicine [facility]tart: 10-09-2022 End: 00-09-5060Hpagexo encounter procedurePafaisal GIL [facility] start: 04-18-2022 End: 33-90-0744Bwcdvoe encounter procedurePafaisal GIL [facility] Start: 04-11-2022 End: 81-81-6864lttagkrxudFV RITCHIE Dickson FURMARIAHNGFacility:C5Ybwdi: 04-06-2022 End: 70-81-0025yekzqgvpweUQ RITCHIE Dickson FURLONGFacility:Q7Dzapd: 04-03-2022 Encounter for preprocedural laboratory examinationDR DEAN GILMercy Health Willard Hospitaltart: 03-31-2022 End: 19-32-4195vuwzverqvkWW RITCHIE MUELLERLONGFacility:V7Ggmak: 03-31-2022 End: 24-47-3104Tpflpbbuc for preprocedural laboratory examinationDR RITCHIE MUELLERLONGFacility:U1Yugqa: 03-27-2022 End: 77-30-5896Xfriedm encounter procedurePafaisal GIL [facility] start: 03-27-2022 End: 54-99-2874sdcipoobimRA DEAN GILFacility:T7Cxmhn: 03-15-2022 End: 36-81-3078Zaipybv encounter procedureDean GIL [facility] Lindsay Start: 03-04-2022 End: 02-14-2181vvhunhkooeQZ LESLIE HAYFacility:R3Hpble: 01-06-2022 End: 75-79-6654pnnmalbzscXL ANTONI FAZIOFacility:C8Khqgc: 01-03-2022 End: 03-51-4025kcubcxorjiYO ANTONI FAZIOFacility:C7Zdhgh: 19-41-9775Xasrlkwbp for preprocedural cardiovascular examinationDR ANTONI [facility] Start: 12-26-2021 End: 82-18-5221fncavyltofPS RITCHIE MUELLERLONGFacility:R6Olzne: 12-26-2021 End: 92-04-2448Ktkbkoplw for preprocedural cardiovascular examinationDR RITCHIE Dickson FURLONGFacility:E2Phbdt: 09-26-2021 End: 05-25-4434avzchyxsabXL RITCHIE G FURLONGFacility:A4Ezxia: 08-17-2021 End: 65-54-6180ifijngqzncTP RITCHIE MUELLERLONGFacility:H1 Procedures DateProcedureProcedure DetailPerforming ClinicianStart: 64-79-8613Iiygc depression screening assessmentDendennis Chaidez DO Work Phone: Start: 39-11-3499SfhfsjrxcwaUjorzw Furlong DO Work Phone: Start: 87-55-8820Zueau depression screening assessment [employer] Work Phone: Start: 35-40-5422Nxuurgkdznod [Mass/volume] in Urine by Test stripThyme Labs Work Phone: Start: 66-34-9485Dqtnk depression screening assessment [employer]itchieNanoPow[employer] Work Phone: Start: 40-11-1955GlbzqrdyngcClabnp Furlong DO Work Phone: Start: 69-49-8461Dmlvniirahbj [Mass/volume] in Urine by Test stripU-[employer]s [employer] Phone: Start: 02-09-2188Mzwoxhcpfco removal of ureteric stent Dean GIL Start: 86-40-8642Tglyotmwjhf laser lithotripsy of ureteric calculusIlfaisal GIL Breast surgery (qualifier value)Dean GIL CholecystectomyPamelissak JEFFERY HysterectomyPamelissak GIL Ligation of fallopian tubePatrick GIL Plan of Treatment DateCare ActivityDetailAuthorStart: 91-68-9956Dwide BMI ScreeningAdult BMI ScreeningProHenry County Hospital SystemStart: 19-49-8527Wgncuwz ScreeningTobacco ScreeningWilson Street Hospitalca [facility] SystemStart: 08-65-8286Hullm BMI ScreeningAdult BMI ScreeningDunlap Memorial Hospital SystemStart: 28-60-0527Quvejrjibd ScreeningDepression ScreeningProHenry County Hospital SystemStart: 83-02-6585Dxqgrfy ScreeningTobacco ScreeningWilson Street Hospitalca [facility] SystemStart: 72-85-6311Sgicsy Use: Cardiovascular Statin Use: CardiovascularProMedica Health SystemStart: 86-96-4174Zanyrp Use: DiabeticStatin Use: DiabeticDunlap Memorial Hospital SystemStart: 34-13-0778DFpO,Tdap and Td Vaccines (2 - Td or Tdap)DTaP,Tdap and Td Vaccines (2 - Td or Tdap) [facility] SystemStart: 67-15-4298Yrceg BMI ScreeningAdult BMI Screening ProMAbbott [facility] SystemStart: 17-65-5635Aybjozrha for malignant neoplasm of breastMammogramProHenry County Hospital SystemStart: 02-03-2025 End: 41-44-7280Eiaoems encounter wxzhosxjv39/02/2025 2:00 PM EST Office Visit [facility] [address] [place] [address] Ritchie Chaidez, [address] [place] [address] [facility] - [facility] Midtowntart: 01-05-2025 End: 20-24-7747Yvdeqsf encounter zhnwcxwqa73/03/2025 10:15 AM EST Office Visit [facility] [address] [place] [address] Ritchie Chaidez DO [address], [facility] [place] [address] [facility] - [facility] MedicineStart: 14-76-2249Eokbi BMI ScreeningAdult BMI ScreeningDunlap Memorial Hospital SystemStart: 60-62-2219Gxiyvsilhl ScreeningDepression ScreeningDunlap Memorial Hospital SystemStart: 77-00-4600Essxwogf foot examinationDiabetic Foot ExamProHenry County Hospital SystemStart: 12-19-2024 Tobacco ScreeningTobacco ScreeningProHenry County Hospital SystemStart: 27-71-9053Laibs screening for proteinUrine MicroalbuminDunlap Memorial Hospital SystemStart: 11-03-2024 COVID-19 Vaccine ( season)COVID-19 Vaccine ( season) [facility] SystemStart: 54-26-0245Tziqsqwue vaccinationInfluenza Vaccine [facility]art: 16-48-8591Aryqscl CounselingTobacco Counseling [facility]art: 41-98-9244Nmfzk BMI ScreeningAdult BMI Screening [facility]: 00-16-0042Cxykapafaq ScreeningDepression Screening [facility] SystemStart: 46-13-8965Kinrulz ScreeningTobacco Screening [facility]aretart: 12-20-2023 End: 02-95-1096Gnasgih encounter khzehfsij09/17/2024 3:00 PM EDT Office Visit [facility] Physicians Internal Medicine - Family Medicine [address] [place] [address] Ritchie Chaidez, [address], [place] [address] [facility] Centertart: 12-20-2023 End: 34-26-3932YQW Breast - bilateral screeningMammography screening bilateral with CAD Imaging Routine Encounter for screening mammogram for malignant neoplasm of breast Expected: 12/20/2023, Expires: 12/19/2024[facility] Work Phone: Comment on above:Expected: 12/20/2023, Expires: 12/19/2024Start: 11-12-2023 End: 18-29-6381Ttwisym encounter unwijszcd39/09/2024 11:00 AM EDT Office Visit [facility] Internal Medicine - Family Medicine [address] [place] [address] Ritchie Chaidez DO [address], [place] [address] [facility] MedicineStart: 93-28-7253RHKMZ-19 Vaccine ( season)COVID-19 Vaccine ()[facility] HospitalJukedeck System Start: 23-30-7126JLUIW-19 Vaccine ( season)COVID-19 Vaccine ()[facility] HospitalJukedeck SystemStart: 48-65-9895Psxwbrlry vaccination Influenza VaccineWilson Street HospitalWaterplayUSA SystemStart: 89-81-0024Jcdzkikjf for malignant neoplasm of breastMammogramProKnox Community HospitalWaterplayUSA SystemStart: 42-26-7700Gitytvcs foot examinationDiabetic Foot ExamProKnox Community HospitalFunderbeam [facility] SystemStart: 72-43-3932Zarzy screening for proteinUrine MicroalbuminProKnox Community HospitalWaterplayUSA SystemStart: 11-03-2022 COVID-19 Vaccine ( season)COVID-19 Vaccine () [facility] HospitalMyNewFinancialAdvisortart: 25-01-3124Umhmk BMI Follow Up PlanAdult BMI Follow Up PlanWilson Street HospitalWaterplayUSA SystemStart: 63-33-0531Uwlvtmxn screeningDiabetic Ophthalmology ExamProKnox Community HospitalWaterplayUSA SystemStart: 63-56-7047Gbjowh Use: CardiovascularStatin Use: CardiovascularWilson Street HospitalWaterplayUSA [facility] Hospitaltart: 1979 Statin Use: DiabeticStatin Use: DiabeticBarre City Hospitaljudge.me End: 90-44-8760Rclzafvyuffuk metabolic 2000 panel - Serum or PlasmaComprehensive metabolic panel Lab Routine Well adult exam 1 Occurrences starting 01/05/2025 until 01/05/2026[employer] Work Phone: Comment on above:1 Occurrences starting 01/05/2025 until 01/05/2026omprehensive metabolic 2000 panel - Serum or Plasma Comprehensive metabolic panel Lab Routine Well adult exam 01/05/2025 11:[address] [facility] SystemV[facility] End: 14-68-4516Fjjosvcvnf A1c/Hemoglobin.total in BloodHemoglobin A1c Lab Routine Type 2 diabetes mellitus without complication, without long-term current use of insulin ([facility]) 1 Occurrences starting 01/05/2025 until 01/05/2026 [facility] HospitalKerlinkComment on above:1 Occurrences starting 01/05/2025 until 01/05/2026Hemoglobin A1c/Hemoglobin.total in BloodHemoglobin A1c Lab Routine Type 2 diabetes mellitus without complication, without long-term currentuse of insulin ([facility]) 01/05/2025 11:00 AM [employer] End: 30-33-4155Odpwx 1995 panel - Serum or PlasmaLipid profile Lab Routine Well adult exam 1 Occurrences starting 01/05/2025 until 01/05/2026[facility] City HospitalVoucherlink [facility]rosse PointeComment on above:1 Occurrences starting 01/05/2025 until 01/05/2026Lipid 1995 panel - Serum or PlasmaLipid profile Lab Routine Well adult exam 01/05/2025 11:00 AM [employer] Immunizations Immunization DateImmunizationNotesCare EwmadmbiOnjsxfkz72-77-7893ckgmqyubt, injectable, madin kj canine kidney, preservative freeDennis Furlong DO Work Phone: [facility] HospitalWaterplayUSA Lerlae15-53-2953Styefqhklmnx Conjugate 20-valentDennis Furlong DO Work Phone: [facility] HospitalWaterplayUSA Ayyggy70-21-6464Pmryvndgkhdc, In Clinic,; Translations: [Drug or medicament (substance)]Ritchie Furlong DO Work Phone: [facility] HospitalWaterplayUSA Guzvof51-95-5013Smeywlsbxlmo, In Clinic,; Translations: [Drug or medicament (substance)]Ritchie Furlong DO Work Phone: [facility] HospitalVoucherlink Hchyfw71-84-1011uxluupfln, injectable, quadrivalent, preservative freeDennis Furlong DO Work Phone: [facility] HospitalWaterplayUSA Jcqbzk84-95-6235tszgpybyl virus vaccine, unspecified formulationLalitha Chilel CRUTCH MAKER-WHEEL MILL OPERATOR Work Phone: [facility] Street HospitalVeducaQhhbtg31-36-3974sncogsnqd virus vaccine, unspecified formulationPamelissak GIL [facility] [place] 582531-30-2022Influenza, injectable, Madin Moran Canine Kidney, preservative free, quadrivalentDennis Furlong DO Work Phone: [facility] [employer] Ucoivy55-78-4526RVUG-MlP-1 (COVID-19) mRNAMUL.ORD!r19897QhgyyteDean GIL [facility] [place] 582531-01-2021influenza virus vaccine, unspecified formulationPatricnicki GIL [facility] [place] 582531-01-2021influenza, injectable, quadrivalent, preservative freeDennis Furlong DO Work Phone: [facility] HospitalWaterplayUSA Vxqnfi45-19-5867DAAS-PhT-2 (COVID-19) mRNA BNT-162b2 vaxDean GIL [facility]04-29-2021SARS-CoV-2 (COVID-19) mRNA BNT-162b2 óscarxKelbyHive7nicki GIL [facility]04-08-2021SARS-CoV-2 (COVID-19) mRNA BNT-162b2 vaxKelbyHive7nicki VPEP [facility]04-19-2016tetanus toxoid, reduced diphtheria toxoid, and acellular pertussis vaccine, adsorbedDennis Furlong DO Work Phone: [facility] Payers DatePayer CategoryPayerPolicy [id number] Service Unit Managed Care - OtherANTHEM Member Subscriber Plan / Payer (Effective 2023-Present) Name: Aj Rodríguez Relation to Subscriber: Self Name: Aj Rodríguez Payer ID: [id number] (NAIC) Type: Not on file Address: [address] [id number] Health System Managed Care - PPOANTHEM Member Subscriber Plan / Payer (Effective 2023-Present) Name: Aj Rodríguez aLyla Relation to Subscriber: Self Name: Aj Rodríguez Layla Payer ID: [id number] (NAIC) Type: Not on file Address: [address] [place] [id number] BCBS OUT OF STATE PPO/TRUST [id number] 2020-Present [phone] [address] [place] [address] [id number] 2.0.1.149425.3.57[id number] 2.0.1.219062.3.57[id number] 2.0.1.936255.3.57[id number] 2.0.1.395557.3.57[id number] 2.160.1.142003.3.57[id number] 2.840.1.842891.3.57[id number] 2.840.1.692200.3.57[id number] 2.16.840.1.991411.3.57[id number] 2.16.840.1.276496.3.57[id number] 2.16.840.1.319448.3.57[id number] 2.16.840.1.016518.3.57[id number] 2.16.840.1.216659.3.579.2.[id number] 2.16.840.1.233979.3.57[id number] 2..840.1.803714.3.57[id number] 2.16.840.1.873102.3.579.[id number] Social History DateTypeDetailFacilityStart: 03-15-2022 End: 58-91-5124Ulybaok smoking statusNever smoked tobacco (finding)[facility] HospitalyTobacco smoking statusNever [facility] HospitalyStart: 12-20-2023 End: 52-16-4162Dzy Assigned At BirthFeHocking Valley Community Hospitaltart: 39-63-9166Axkvnpo smoking status NHISEx-smokerProHenry County Hospital SystemStart: 01-03-2007 End: 11-27-7546Jvlyyst of tobacco useCurrent smokerCarteret Health Caretart: 01-03-2007 End: 88-65-1663Zxfgtib of tobacco useCigarette SmokerDunlap Memorial Hospital System Start: 12-20-2023 End: 18-31-0077Vohdaoduqy smoked current (pack per day) - Reported0.2ProMedWooster Community Hospital SystemHistory of tobacco usePassive smokerDunlap Memorial Hospital SystemStart: 01-08-2023 End: 83-42-9006Bsdpauw use and exposureSmokeless tobacco non-userCarteret Health Caretart: 12-20-2023 End: 45-02-7553Wgbvblzqx beverage intakeCurrent drinker of alcohol (finding) [facility] HospitalHas the Rootless, oil, or water wiseri threatened to shut off services in your home in past 12MoNFayette County Memorial HospitalAre you now , , , , never or living with a partner?DivorcedMarion HospitalHow often to you have a drink containing alcohol?NeverMarion HospitalDo you feel stress - tense, restless, nervous, or anxious, or unable to sleep at night because yourmind is troubled all the time - these days [OSQ]Not at allCarteret Health Caretart: 41-36-2542Hcsctzu Commentone ciggarette todayDunlap Memorial Hospital SystemStart: 79-80-3616Mnauuxx CommentoccasionalDunlap Memorial Hospital SystemStart: 65-77-1276Hvm assigned at birthNot on fileCarteret Health Caretart: 35-45-7741CgeDervwb (finding)[facility]: 29-56-7618Thqutog smoking status NHIS Occasional tobacco smokerCarteret Health Caretart: 36-72-2230Fcpickx Comment occasional, weeklyProHenry County Hospital SystemHow hard is it for you to pay for the very basics like food, housing, medical care, and heatingNot very hardMarion Hospital Medical Equipment Procedure CodeEquipment CodeEquipment Original TextEquipment IdentifierDates [id number]: 85-01-1345Chj Anch Pk Microraptor Kntls - Sna - [id number]: 08-01-5307Lpum Bn 3 W Ascp Dlv Sys - Sna - [id number] Start: 67-47-4163866444216NpiWhabc Ultra Blue Test Strip USE DIRECTED ONCE [id number] Functional Status TocmZdrblqwvknPornzgUswpskjy88-43-9536Butpgvbsnu StatusN/AExecutive [facility]rology of [facility] Centerue08-07-2023Functional StatusN/AExec[facility] Vincent Medical Centerue01-23-2023Functional StatusN/A [facility]01-11-2023Functional StatusN/AExec[facility] Lindsay Clinical Notes 01-06-2022 to 01-05-2025 Note Date & LsdtQlaoOnlztdru48-06-4400 History of Present illness Narrative* Ritchie Muellercarlita, DO - 01/05/2025 10:15 AM EST Subjective Patient ID: Aj Rodríguez is a 44 y.o. female. Aj presents today for her annual wellness exam. She has a couple issues she would like to discuss. She is taking her medications. She does not have any side effects. She stopped the BuSpar becauseshe is out of a toxic relationship and no longer needs it. She stopped the Trulicity but has since gained a lot of weight. She forgot to take thyroid supplement on her trip so has been out of it for a week. Numbness intermittently since September when she got a new job. She has had b/l shoulder surgery. She notices that when she raises her arms up then she can get the numbness too. She does not have any weakness. Does not really bother her at night. She is frustrated that she gained so much weight. She is open to trying wt loss medication. Annual Exam Associated symptoms include numbness (in both hands). The following portions of the patient's history were reviewed and updated as appropriate: allergies, current medications, past family history, past medical history, past social history, past surgicalhistory, problem list, and medication reconciliation was completed including current medication andpost discharge medication. Review of Systems Constitutional: Positive for unexpected weight change. HENT: Negative. Eyes: Negative. Respiratory: Negative. Cardiovascular: Negative. Gastrointestinal: Negative. Endocrine: Negative. Genitourinary: Negative. Musculoskeletal: Negative. Neurological: Positive for numbness (in both hands). Hematological: Negative. Psychiatric/Behavioral: Negative. Objective Physical Exam Vitals reviewed. Constitutional: General: She is not in acute distress. Appearance: She is not ill-appearing. HENT: Head: Normocephalic and atraumatic. Right Ear: Tympanic membrane, ear canal and external ear normal. Left Ear: Tympanic membrane, ear canal and external ear normal. Nose: Nose normal. Mouth/Throat: Lips: [place]. Mouth: Mucous membranes are moist. Dentition: Normal dentition. Pharynx: Oropharynx is clear. Eyes: General: No scleral icterus. Extraocular Movements: Extraocular movements intact. Conjunctiva/sclera: Conjunctivae normal. Cardiovascular: Rate and Rhythm: Normal rate and regular rhythm. Pulses: Dorsalis pedis pulses are 2+ on the right side and 2+ on the left side. Posterior tibial pulses are 2+ on the right side and 2+ on the left side. Heart sounds: Normal heart sounds. No murmur heard. Pulmonary: Effort: Pulmonary effort is normal. No respiratory distress. Breath sounds: Normal breath sounds. No wheezing, rhonchi or rales. Abdominal: General: Bowel sounds are normal. There is no distension. Palpations: Abdomen is soft. There is no mass. Tenderness: There is no abdominal tenderness. There is no guarding or rebound. Hernia: No hernia is present. Musculoskeletal: Cervical back: Neck supple. Right lower leg: No edema. Left lower leg: No edema. Comments: + Adsons Feet: Right foot: Protective Sensation: 10 sites tested. 10 sites sensed. Skin integrity: Callus present. Toenail Condition: Right toenails are normal. Left foot: Protective Sensation: 10 sites tested. 10 sites sensed. Skin integrity: Callus present. Toenail Condition: Left toenails are normal. Lymphadenopathy: Cervical: No cervical adenopathy. Skin: General: Skin is warm and dry. Findings: No lesion or rash. Neurological: General: No focal deficit present. Mental Status: She is alert. Cranial Nerves: Cranial nerves 2-12 are intact. Gait: Gait is intact. Comments: Negative Tinel's Negative Phalen's Psychiatric: Attention and Perception: Attention normal. Mood and Affect: Mood and affect normal. Speech: Speech normal. Behavior: Behavior normal. Behavior is cooperative. Thought Content: Thought content normal. Cognition and Memory: Cognition normal. Judgment: Judgment normal. Assessment/Plan Aj was seen today for annual exam. Diagnoses and all orders for this visit: Well adult exam - Comprehensive metabolic panel; Future - Lipid profile; Future - Lipid profile - Comprehensive metabolic panel Health maintenance discussed. Check CMP and lipids. She is due for a colon cancer screen. Her mother had colon cancer so she needs a colonoscopy. She does not want to set that up right now. Risks discussed. Type 2 diabetes mellitus without complication, without long-term current use of insulin ([facility]) - Hemoglobin A1c; Future - Pneumococcal Conjugate 20-Valent - Hemoglobin A1c Check A1c. Recommended pneumonia vaccine and patient agreed. Acquired hypothyroidism She has not been taking her thyroid medication lately because she forgot it. We will hold off on checking it until a later time. Essential hypertension Blood pressure is borderline high. Restart olmesartan. Class 2 severe obesity due to excess calories with serious comorbidity and body mass index (BMI) of38.0 to 38.9 in adult - phentermine 37.5 MG capsule; Take 1 capsule (37.5 mg total) by mouth every morning before breakfast. She is obese. She would benefit from weight loss. Diet, exercise and weight loss discussed and encouraged. We discussed medications. She is willing to try phentermine. She was lose 5% of her body weight every 3 months to continue on. She can go down to 27% BMI with her cardiovascular conditions. The OARRS/MAPPS database was reviewed today and found to be appropriate. No indication of medication diversion, or non compliance. Paresthesia and pain of both upper extremities Etiology unclear. Could be many possibilities including diabetes, hypothyroidism, carpal tunnel andthoracic outlet to name a few. He did she does not have any weakness. Does not really interfere with her quality of life. She would need an EMG to evaluate this further. She declined further testing at this time Need for Streptococcus pneumoniae vaccination - Pneumococcal Conjugate 20-Valent She agreed to the pneumonia vaccine it was given. No complications. Need for pneumococcal vaccine Need for immunization against influenza - Flucelvax vaccine 18 YRS plus Preservative Free IM She agreed to the flu shot and it was given without complications. [facility] Miscellaneous Notes* Telephone Encounter - Ritchie Chaidez DO - 11/19/2024 12:54 AM EDT Rx sent in. She is due for a wellness after December 19 * Telephone Encounter - Clark Matt CNA - 11/19/2024 12:54 AM EDT Scheduled [facility] Telephone encounter Note* Telephone Encounter - Ritchie Chaidez DO - 11/19/2024 12:54 AM EDT Rx sent in. She is due for a wellness after December 19 [facility] Telephone encounter Note* Telephone Encounter - Clark Matt CNA - 11/19/2024 12:54 AM EDT Scheduled [facility] History of Present illness Narrative* Ritchie Chaidez DO - 08/26/2024 4:15 PM EDT Images from the original note were not included. Subjective Patient ID: Aj Rodríguez is a 44 y.o. female. Aj presents for left calf pain. She injured her left calf yesterday. She was walking outside fora minute to get a number off the dumpster and left the door open and her Frenchie dog got out and she heard her neighbor yell no no no and she turned to run after her and was wearing no shoes and was on concrete and felt a sudden pain in her left calf. Pain aggravated by walking and it is a 7 or 8 on a scale 1-10. She has been wearing a brace on her calf. She had this happen in April and is wondering what she can do to prevent this in the future. Leg Pain The following portions of the patient's history were reviewed and updated as appropriate: allergies, current medications, past family history, past medical history, past social history, past surgicalhistory, problem list, and medication reconciliation was completed including current medication andpost discharge medication. Review of Systems Objective Physical Exam Vitals reviewed. Constitutional: General: She is not in acute distress. HENT: Head: Normocephalic. Cardiovascular: Pulses: Normal pulses. Musculoskeletal: General: Tenderness present. No deformity. Right lower leg: Tenderness present. No deformity or lacerations. No edema. Left lower leg: No edema. Legs: Comments: Negative Ann test. Negative Delmy's test. +pain with palpation-Michael test. Right calf 44cm and left calf is 43 cm in diameter but she was wearing a brace Neurological: General: No focal deficit present. Mental Status: She is alert and oriented to person, place, and time. Gait: Gait abnormal (she is limping without assistive devices). Psychiatric: Attention and Perception: Attention normal. Mood and Affect: Mood and affect normal. Speech: Speech normal. Behavior: Behavior normal. Behavior is cooperative. Thought Content: Thought content normal. Judgment: Judgment normal. Assessment/Plan Aj was seen today for leg pain. Diagnoses and all orders for this visit: Strain of calf muscle, left, initial encounter I suspect a calf strain with a sudden onset of pain and previous injury. Could possibly have done more damage her would need an MRI ortho evaluation. We will write her off work this week. Continue ice, bracing, rest and NSAIDs. documented in [address] encounterWilson [address] HospitalFunderbeam [facility] [id number] Miscellaneous Notes* Telephone Encounter - Jeniffer Freeman CMA - 01/02/2024 9:57 AM EDT Made 3 attempts to contact patient for new patient appointment with Vascular with no success. 01/02/24- VM full 12/28/23-VM full 12/24/23- LVM to to schedule new patient appointment for Varicose veins. Patient prefers to be scheduled in the [place] office. No testing documented in this encounterWilson [facility] HospitalWaterplayUSA [id number] Telephone encounter Note* Telephone Encounter - Jeniffer Freeman CMA - 01/02/2024 9:57 AM EDT Made 3 attempts to contact patient for new patient appointment with Vascular with no success. 01/02/24- VM full 12/28/23-VM full 12/24/23- LVM to to schedule new patient appointment for Varicose veins. Patient prefers to be scheduled in the [place] office. [facility] testing [facility] History of Present illness Narrative* Ritchie Chaidez, - 12/20/2023 3:00 PM EDT Subjective Patient ID: Aj Rodríguez is a 43 y.o. female. Aj presents today for her annual wellness exam. She is doing much better since she has gotten a divorce. She is taking all of her medications. She does not have any side effects. She stopped taking alprazepam because she does not need it anymore. The following portions of the patient's history were reviewed and updated as appropriate: allergies, current medications, past family history, past medical history, past social history, past surgicalhistory, problem list, and medication reconciliation was completed including current medication andpost discharge medication. Review of Systems Constitutional: Negative. HENT: Negative. Eyes: Negative. Respiratory: Negative. Cardiovascular: Positive for leg swelling (feet swell in left ankle). Gastrointestinal: Negative. Endocrine: Negative. Genitourinary: Negative. Musculoskeletal: Negative. Skin: Negative. Allergic/Immunologic: Negative. Neurological: Negative. Hematological: Negative. Psychiatric/Behavioral: Negative. Objective Physical Exam Vitals reviewed. Constitutional: General: She is not in acute distress. Appearance: She is well-groomed. She is obese. HENT: Head: Normocephalic. Right Ear: Tympanic membrane, ear canal and external ear normal. Left Ear: Tympanic membrane, ear canal and external ear normal. Nose: Nose normal. Mouth/Throat: Lips: [place]. Mouth: Mucous membranes are moist. Dentition: Normal dentition. Tongue: No lesions. Pharynx: Oropharynx is clear. Uvula midline. Eyes: General: No scleral icterus. Extraocular Movements: Extraocular movements intact. Conjunctiva/sclera: Conjunctivae normal. Neck: Thyroid: No thyroid mass, thyromegaly or thyroid tenderness. Cardiovascular: Rate and Rhythm: Normal rate and regular rhythm. Pulses: Normal pulses. Heart sounds: Normal heart sounds. No murmur heard. Comments: Positive varicose veins left lower extremity medial aspect of leg Pulmonary: Effort: Pulmonary effort is normal. No respiratory distress. Breath sounds: Normal breath sounds. No wheezing, rhonchi or rales. Abdominal: General: Bowel sounds are normal. Palpations: Abdomen is soft. Tenderness: There is no abdominal tenderness. Musculoskeletal: Cervical back: Neck supple. Right lower leg: No edema. Left lower leg: Edema (Trace) present. Lymphadenopathy: Cervical: No cervical adenopathy. Skin: General: Skin is warm. Findings: No lesion or rash. Neurological: General: No focal deficit present. Mental Status: She is alert and oriented to person, place, and time. Cranial Nerves: Cranial nerves 2-12 are intact. Gait: Gait is intact. Psychiatric: Attention and Perception: Attention normal. Mood and Affect: Mood and affect normal. Speech: Speech normal. Behavior: Behavior normal. Behavior is cooperative. Thought Content: Thought content normal. Cognition and Memory: Cognition and memory normal. Judgment: Judgment normal. Assessment/Plan Aj was seen today for annual exam. Diagnoses and all orders for this visit: Well adult health check - Comprehensive metabolic panel; Future - Lipid panel; Future Health maintenance discussed. Check CMP and lipids. Type 2 diabetes mellitus without complication, without long-term current use of insulin ([facility]) - Diabetic foot exam performed - Hemoglobin A1c; Future - Microalbumin - Albumin: Creatinine Urine Ratio; Future Check A1c and ACR. Foot exam was normal. She was encouraged to have a yearly eye exam. She is getting a flu shot and did not want to get the pneumonia vaccine today. Essential hypertension Blood pressure at goal. Check CMP. Continue current regimen Mixed hyperlipidemia Check lipids. Continue rosuvastatin Vitamin D deficiency - Vitamin D 25 hydroxy; Future Check vitamin-D level 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, left - [facility] - [place], [place]; Future She has symptomatic varicose veins of left lower extremity. She would like something done about it.We will refer to vascular Encounter for screening mammogram for malignant neoplasm of breast - Mammography screening bilateral with CAD; Future Check mammogram to screen for breast cancer. She would pursue further evaluation and treatment if needed Need for immunization against influenza - FLU VACCINE TS (6MOS UP)(PF) 45 MCG(15MCG X3)/0.5 ML IM SYRINGE She agrees to a flu shot and was given vaccine Acquired hypothyroidism - Thyroid profile includes TSH FT4; Future Check TSH and T4 Class 1 obesity due to excess calories with serious comorbidity and body mass index (BMI) of 34.0234.9 in adult Diet exercise and weight loss discussed and encouraged. It is contributing to diabetes, high blood pressure and high cholesterol. She would benefit from weight loss. documented in this encounterMarion Hospital08-09-2024 Hospital Discharge instructions Patient Education 10/12/2023 08:53:46 Dietary Guidelines to Help Prevent Kidney Stones Dietary Guidelines to Help Prevent Kidney Stones Kidney stones are deposits of minerals and salts that form inside your kidneys. Your risk of developing kidney stones may be greater depending on your diet, your lifestyle, the medicines you take, and whether you have certain medical conditions. Most people can lower their risks of developing kidney stones by following these dietary guidelines. Your dietitian may give you more specific instructions depending on your overall health and the type of kidney stones you tend to develop. What are tips for following this plan? Reading food labels Choose foods with no salt added or low-salt labels. Limit your salt (sodium) intake to less than 1,500 mg a day. Choose foods with calcium for each meal and snack. Try to eat about 300 mg of calcium at each meal.Foods that contain 200 500 mg of calcium a serving include: ?8 oz (237 mL) of milk, vwqvnur-vbgkxpeltdtr-wewos milk, and calcium- fortifiedfruit juice. Calcium-fortified means that calcium has been added to these drinks. ?8 oz (237 mL) of kefir, yogurt, and soy yogurt. ?4 oz (114 g) of tofu. ?1 oz (28 g) of cheese. ?1 cup (150 g) of dried figs. ?1 cup (91 g) of cooked broccoli. ?One 3 oz (85 g) can of sardines or mackerel. Most people need 1,000 1,500 mg of calcium a day. Talk to your dietitian about how much calcium is recommended for you. Shopping Buy plenty of fresh fruits and vegetables. Most people do not need to avoid fruits and vegetables, even if these foods contain nutrients that may contribute to kidney stones. When shopping for convenience foods, choose: ?Whole pieces of fruit. ?Pre-made salads with dressing on the side. ?Low-fat fruit and yogurt smoothies. Avoid buying frozen meals or prepared deli foods. These can be high in sodium. Look for foods with live cultures, such as yogurt and kefir. Choose high-fiber grains, such as whole-wheat breads, oat bran, and wheat cereals. Cooking Do not add salt to food when cooking. Place a salt shaker on the table and allow each person to addtheir own salt to taste. Use vegetable protein, such as beans, textured vegetable protein (TVP), or tofu, instead of meat inpasta, casseroles, and soups. Meal planning Eat less salt, if told by your dietitian. To do this: ?Avoid eating processed or pre-made food. ?Avoid eating fast food. Eat less animal protein, including cheese, meat, poultry, or fish, if told by your dietitian. To dothis: ?Limit the number of times you have meat, poultry, fish, or cheese each week. Eat a diet free of meat at least 2 days a week. ?Eat only one serving each day of meat, poultry, fish, or seafood. ?When you prepare animal proteins, cut pieces into small portion sizes. For most meat and fish, oneserving is about the size of the palm of your hand. Eat at least five servings of fresh fruits and vegetables each day. To do this: ?Keep fruits and vegetables on hand for snacks. ?Eat one piece of fruit or a handful of berries with breakfast. ?Have a salad and fruit at lunch. ?Have two kinds of vegetables at dinner. You may be told to limit foods that are high in a substance called oxalate. These include: ?Spinach (cooked), rhubarb, beets, sweet potatoes, and Kosovan chard. ?Peanuts. ?Potato chips, sammarinese fries, and baked potatoes with skin on. ?Nuts and nut products. ?Chocolate. If you regularly take a diuretic medicine, make sure to eat at least 1 or 2 servings of fruits or vegetables that are high in potassium each day. These include: ?Avocado. ?Banana. ?[place], prune, carrot, or tomato juice. ?Baked potato. ?Cabbage. ?Beans and split peas. Lifestyle Drink enough fluid to keep your urine pale yellow. This is the most important thing you can do. Spread your fluid intake throughout the day. If you drink alcohol: ?Limit how much you have to: ?0 1 drink a day for women who are not . ?0 2 drinks a day for men. ?Know how much alcohol is in your drink. In the [place] one drink equals one 12 oz bottle of beer (355 mL), one 5 oz glass of wine (148 mL), or one 1 oz glass of hard liquor (44 mL). Lose weight if told by your health care provider. Work with your dietitian to find an eating plan and weight loss strategies that work best for you. General information Talk to your health care provider and dietitian about taking daily supplements. Depending on your health and the cause of your kidney stones, you may be told: ?Do not take high-dose supplements of vitamin C (1,000 mg a day or more). ?To take a calcium supplement. ?To take a daily probiotic supplement. ?To take other supplements such as magnesium, fish oil, or vitamin B6. Take xfuh-bhy-svkzobk and prescription medicines only as told by your health care provider. These include supplements. What foods should I limit? Limit your intake of the following foods, or eat them as told by your dietitian. Vegetables Spinach. Rhubarb. Beets. Canned vegetables. Pickles. Olives. Baked potatoes with skin. Grains Wheat bran. Baked goods. Salted crackers. Cereals high in sugar. Meats and other proteins Nuts. Nut butters. Large portions of meat, poultry, or fish. Salted, precooked, or cured meats, such as sausages, meat loaves, and hot dogs. Dairy Cheeses. Beverages Regular soft drinks. Regular vegetable juice. Seasonings and condiments Seasoning blends with salt. Salad dressings. Soy sauce. Ketchup. Barbecue sauce. Other foods Canned soups. Canned pasta sauce. Casseroles. Pizza. Lasagna. Frozen meals. Potato chips. Nepalese fries. The items listed above may not be a complete list of foods and beverages you should limit. Contact a dietitian for more information. What foods should I avoid? Talk to your dietitian about specific foods you should avoid based on the type of kidney stones youhave and your overall health. Fruits Grapefruit. The item listed above may not be a complete list of foods and beverages you should avoid. Contact adietitian for more information. Summary Kidney stones are deposits of minerals and salts that form inside your kidneys. You can lower your risk of kidney stones by making changes to your diet. The most important thing you can do is drink enough fluid. Drink enough fluid to keep your urine pale yellow. Talk to your dietitian about how much calcium you should have each day, and eat less salt and animal protein as told by your dietitian. This information is not intended to replace advice given to you by your health care provider. Make sure you discuss any questions you have with your health care provider. Document Revised: 06/01/2022 Document Reviewed: 06/01/2022 [employer] Patient Education 2022 [employer]. Follow Up Care 10/09/2022 10:16:35 With:JEFFERY TRUONG, [place], URL Address: [address] [place], [place] [id number]- When: Unknown [facility] 08-09-2024 NotePatient Education Nephrology Dietary Guidelines to Help Prevent Kidney Stones Kidney stones are deposits of minerals and salts that form inside your kidneys. Your risk of developing kidney stones may be greater depending on your diet, your lifestyle, the medicines you take, and whether you have certain medical conditions. Most people can lower their risks of developing kidney stones by following these dietary guidelines. Your dietitian may give you more specific instructions depending on your overall health and the type of kidney stones you tend to develop. What are tips for following this plan? Reading food labels ? Choose foods with no salt added or low-salt labels. Limit your salt (sodium) intake to less than 1,500 mg a day. ? Choose foods with calcium for each meal and snack. Try to eat about 300 mg of calcium at each meal. Foods that contain 200?500 mg of calcium a serving include: ? 8 oz (237 mL) of milk, hpkotaj-xiqcfaeaefpv-xdfrq milk, and calcium- fortifiedfruit juice. Calcium-fortified means that calcium has been added to these drinks. ? 8 oz (237 mL) of kefir, yogurt, and soy yogurt. ? 4 oz (114 g) of tofu. ? 1 oz (28 g) of cheese. ? 1 cup (150 g) of dried figs. ? 1 cup (91 g) of cooked broccoli. ? One 3 oz (85 g) can of sardines or mackerel. Most people need 1,000?1,500 mg of calcium a day. Talk to your dietitian about how much calcium is recommended for you. Shopping ? Buy plenty of fresh fruits and vegetables. Most people do not need to avoid fruits and vegetables, even if these foods contain nutrients that may contribute to kidney stones. ? When shopping for convenience foods, choose: ? Whole pieces of fruit. ? Pre-made salads with dressing on the side. ? Low-fat fruit and yogurt smoothies. ? Avoid buying frozen meals or prepared deli foods. These can be high in sodium. ? Look for foods with live cultures, such as yogurt and kefir. ? Choose high-fiber grains, such as whole-wheat breads, oat bran, and wheat cereals. Cooking ? Do not add salt to food when cooking. Place a salt shaker on the table and allow each person to add their own salt to taste. ? Use vegetable protein, such as beans, textured vegetable protein (TVP), or tofu, instead of meat in pasta, casseroles, and soups. Meal planning ? Eat less salt, if told by your dietitian. To do this: ? Avoid eating processed or pre-made food. ? Avoid eating fast food. ? Eat less animal protein, including cheese, meat, poultry, or fish, if told by your dietitian. To do this: ? Limit the number of times you have meat, poultry, fish, or cheese each week. Eat a diet free of meat at least 2 days a week. ? Eat only one serving each day of meat, poultry, fish, or seafood. ? When you prepare animal proteins, cut pieces into small portion sizes. For most meat and fish, one serving is about the size of the palm of your hand. ? Eat at least five servings of fresh fruits and vegetables each day. To do this: ? Keep fruits and vegetables on hand for snacks. ? Eat one piece of fruit or a handful of berries with breakfast. ? Have a salad and fruit at lunch. ? Have two kinds of vegetables at dinner. ? You may be told to limit foods that are high in a substance called oxalate. These include: ? Spinach (cooked), rhubarb, beets, sweet potatoes, and Kosovan chard. ? Peanuts. ? Potato chips, sammarinese fries, and baked potatoes with skin on. ? Nuts and nut products. ? Chocolate. ? If you regularly take a diuretic medicine, make sure to eat at least 1 or 2 servings of fruits orvegetables that are high in potassium each day. These include: ? Avocado. ? Banana. ? [place], prune, carrot, or tomato juice. ? Baked potato. ? Cabbage. ? Beans and split peas. Lifestyle ? Drink enough fluid to keep your urine pale yellow. This is the most important thing you can do. Spread your fluid intake throughout the day. ? If you drink alcohol: ? Limit how much you have to: ? 0?1 drink a day for women who are not . ? 0?2 drinks a day for men. ? Know how much alcohol is in your drink. In the [place] one drink equals one 12 oz bottle of beer (355 mL), one 5 oz glass of wine (148 mL), or one 1? oz glass of hard liquor (44 mL). ? Lose weight if told by your health care provider. Work with your dietitian to find an eating planand weight loss strategies that work best for you. General information ? Talk to your health care provider and dietitian about taking daily supplements. Depending on yourhealth and the cause of your kidney stones, you may be told: ? Do not take high-dose supplements of vitamin C (1,000 mg a day or more). ? To take a calcium supplement. ? To take a daily probiotic supplement. ? To take other supplements such as magnesium, fish oil, or vitamin B6. ? Take fgyd-chj-dwyfxjn and prescription medicines only as told by your health care provider. Theseinclude suppleme (more content not included)...[facility]07-11-2024 Miscellaneous Notes* Telephone Encounter - Latasha Mcfarland - 09/13/2023 10:19 AM EDT due for thyroid recheck. Can make it a wellness to I believe * Telephone Encounter - Latasha Mcfarland - 09/13/2023 10:19 AM EDT Mailbox full * Telephone Encounter - Latasha Mcfarland - 09/13/2023 10:19 AM EDT Mailbox full * Telephone Encounter - Latasha Mcfarland - 09/13/2023 10:19 AM EDT Mailbox full * Telephone Encounter - Latasha Mcfarland - 09/13/2023 10:19 AM EDT Scheduled [facility]24 Telephone encounter Note* Telephone Encounter - Latasha Mcfarland - 09/13/2023 10:19 AM EDT due for thyroid recheck. Can make it a wellness to I believe [facility]07-[facility] Telephone encounter Note* Telephone Encounter - Latasha Mcfarland - 09/13/2023 10:19 AM EDT Mailbox full [facility] Tele[facility] encounter Note* Telephone Encounter - Latasha Mcfarland - 09/13/2023 10:19 AM EDT Mailbox full [facility] Telephone encounter Note* Telephone Encounter - Latashaalejandra Mcfarland - 09/13/2023 10:19 AM EDT Mailbox full [facility] Tele[facility] encounter Note* Telephone Encounter - Latasha Mcfarland - 09/13/2023 10:19 AM EDT Scheduled [facility] Miscellaneous Notes* Telephone Encounter - Ritchie Chaidez DO - 09/11/2023 7:21 PM EDT Rx sent in. She is due for thyroid recheck. Can make it a wellness [facility]* Telephone Encounter - Ritchie Chaidez DO - 09/11/2023 7:21 PM EDT Rx sent in. She is due for thyroid recheck. Can make it a wellness to I believe [facility] Miscellaneous Notes* Telephone Encounter - Ritchie Dickson DO Kaylynn - 06/19/2023 4:40 PM EDT Rx sent in. She is due for a thyroid recheck [facility] encounter Note* Telephone Encounter - Ritchie Muellercarlita, - 06/19/2023 4:40 PM EDT Rx sent in. She is due for a thyroid recheck [facility] Hospital Discharge instructions Patient Education 10/09/2022 10:10:16 Dietary Guidelines to Help Prevent Kidney Stones Dietary Guidelines to Help Prevent Kidney Stones Kidney stones are deposits of minerals and salts that form inside your kidneys. Your risk of developing kidney stones may be greater depending on your diet, your lifestyle, the medicines you take, and whether you have certain medical conditions. Most people can lower their chances of developing kidney stones by following the instructions below. Your dietitian may give you more specific instructions depending on your overall health and the type of kidney stones you tend to develop. What are tips for following this plan? Reading food labels Choose foods with no salt added or low-salt labels. Limit your salt (sodium) intake to less than 1,500 mg a day. Choose foods with calcium for each meal and snack. Try to eat about 300 mg of calcium at each meal.Foods that contain 200 500 mg of calcium a serving include: ?8 oz (237 mL) of milk, rrcnuvo-iuurxsvbmcdn-mhdkg milk, and calcium- fortifiedfruit juice. Calcium-fortified means that calcium has been added to these drinks. ?8 oz (237 mL) of kefir, yogurt, and soy yogurt. ?4 oz (114 g) of tofu. ?1 oz (28 g) of cheese. ?1 cup (150 g) of dried figs. ?1 cup (91 g) of cooked broccoli. ?One 3 oz (85 g) can of sardines or mackerel. Most people need 1,000 1,500 mg of calcium a day. Talk to your dietitian about how much calcium is recommended for you. Shopping Buy plenty of fresh fruits and vegetables. Most people do not need to avoid fruits and vegetables, even if these foods contain nutrients that may contribute to kidney stones. When shopping for convenience foods, choose: ?Whole pieces of fruit. ?Pre-made salads with dressing on the side. ?Low-fat fruit and yogurt smoothies. Avoid buying frozen meals or prepared deli foods. These can be high in sodium. Look for foods with live cultures, such as yogurt and kefir. Choose high-fiber grains, such as whole-wheat breads, oat bran, and wheat cereals. Cooking Do not add salt to food when cooking. Place a salt shaker on the table and allow each person to addhis or her own salt to taste. Use vegetable protein, such as beans, textured vegetable protein (TVP), or tofu, instead of meat inpasta, casseroles, and soups. Meal planning Eat less salt, if told by your dietitian. To do this: ?Avoid eating processed or pre-made food. ?Avoid eating fast food. Eat less animal protein, including cheese, meat, poultry, or fish, if told by your dietitian. To dothis: ?Limit the number of times you have meat, poultry, fish, or cheese each week. Eat a diet free of meat at least 2 days a week. ?Eat only one serving each day of meat, poultry, fish, or seafood. ?When you prepare animal protein, cut pieces into small portion sizes. For most meat and fish, one serving is about the size of the palm of your hand. Eat at least five servings of fresh fruits and vegetables each day. To do this: ?Keep fruits and vegetables on hand for snacks. ?Eat one piece of fruit or a handful of berries with breakfast. ?Have a salad and fruit at lunch. ?Have two kinds of vegetables at dinner. Limit foods that are high in a substance called oxalate. These include: ?Spinach (cooked), rhubarb, beets, sweet potatoes, and Kosovan chard. ?Peanuts. ?Potato chips, sammarinese fries, and baked potatoes with skin on. ?Nuts and nut products. ?Chocolate. If you regularly take a diuretic medicine, make sure to eat at least 1 or 2 servings of fruits or vegetables that are high in potassium each day. These include: ?Avocado. ?Banana. ?[place], prune, carrot, or tomato juice. ?Baked potato. ?Cabbage. ?Beans and split peas. Lifestyle Drink enough fluid to keep your urine pale yellow. This is the most important thing you can do. Spread your fluid intake throughout the day. If you drink alcohol: ?Limit how much you use to: ?0 1 drink a day for women who are not . ?0 2 drinks a day for men. ?Be aware of how much alcohol is in your drink. In the [place] one drink equals one 12 oz bottle of beer (355 mL), one 5 oz glass of wine (148 mL), or one 1 oz glass of hard liquor (44 mL). Lose weight if told by your health care provider. Work with your dietitian to find an eating plan and weight loss strategies that work best for you. General information Talk to your health care provider and dietitian about taking daily supplements. You may be told thefollowing depending on your health and the cause of your kidney stones: ?Not to take supplements with vitamin C. ?To take a calcium supplement. ?To take a daily probiotic supplement. ?To take other supplements such as magnesium, fish oil, or vitamin B6. Take hvts-lfd-ssobkow and prescription medicines only as told by your health care provider. These include supplements. What foods should I limit? Limit your intake of the following foods, or eat them as told by your dietitian. Vegetables Spinach. Rhubarb. Beets. Canned vegetables. Pickles. Olives. Baked potatoes with skin. Grains Wheat bran. Baked goods. Salted crackers. Cereals high in sugar. Meats and other proteins Nuts. Nut butters. Large portions of meat, poultry, or fish. Salted, precooked, or cured meats, such as sausages, meat loaves, and hot dogs. Dairy Cheese. Beverages Regular soft drinks. Regular vegetable juice. Seasonings and condiments Seasoning blends with salt. Salad dressings. Soy sauce. Ketchup. Barbecue sauce. Other foods Canned soups. Canned pasta sauce. Casseroles. Pizza. Lasagna. Frozen meals. Potato chips. Nepalese fries. The items listed above may not be a complete list of foods and beverages you should limit. Contact a dietitian for more information. What foods should I avoid? Talk to your dietitian about specific foods you should avoid based on the type of kidney stones youhave and your overall health. Fruits Grapefruit. The item listed above may not be a complete list of foods and beverages you should avoid. Contact adietitian for more information. Summary Kidney stones are deposits of minerals and salts that form inside your kidneys. You can lower your risk of kidney stones by making changes to your diet. The most important thing you can do is drink enough fluid. Drink enough fluid to keep your urine pale yellow. Talk to your dietitian about how much calcium you should have each day, and eat less salt and animal protein as told by your dietitian. This information is not intended to replace advice given to you by your health care provider. Make sure you discuss any questions you have with your health care provider. Document Revised: 10/31/2021 Document Reviewed: 10/31/2021 [employer] Patient Education 2022 [employer]. Follow Up Care 04/18/2022 10:22:59 With:JEFFERY TRUONG, Dean R, URL Address: [facility] [address] , [place] [address]- [phone] When: Unknown Comments:[facility] 02-14-2023 Hospital Discharge instructions Patient Education 04/18/2022 10:18:55 [facility] - Cystoscopy with Stent Removal Discharge Instructions (CUSTOM) Cystoscopy with Stent Removal Voiding after the procedure: there may be some pain, burning, urgency, frequency and blood tinged urine following the procedure. These symptoms usually resolve within 2-5 days. Drink the amount of fluid it takes to keep the urine pink to yellow or clear in color. Drinking enough water and fluids will help to ease any discomfort after your procedure. If you are having problems that seem out of the ordinary, please call. If unable to contact your physician and you feel it is an emergency, go to the nearest emergency room or call 911 Diet you may resume your normal diet. Activity you may resume your normal activities Call if you have a fever over 100 degrees. Follow Up Care 04/11/2022 11:14:02 With:Dean GIL Address: [facility] [address] [place] [address]- Business (1) When:10/16/2022 10:18:38 Comments:With a KUB x-ray [facility]02-02-2023 NoteOP Note OPERATION DATE: 04/06/2022 PREOPERATIVE DIAGNOSIS: Right ureteral calculus. POSTOPERATIVE DIAGNOSIS: Right ureteral calculus. PROCEDURE: 1. Cystoscopy. 2. Right rigid ureteral dilation. 3. Right ureteroscopy. 4. Holmium laser lithotripsy of right ureteral calculus. 5. Stone basket extraction. 6. Right pyeloscopy. 7. Placement of right 6-Nepalese variable length ureteral stent. ANESTHESIA: General by LMA; Jung Porter CRNA COMPLICATIONS: None. INDICATIONS: Aj is a 41-year-old lady who has a 7-8 mm proximal right ureteral calculus that she is unable to pass. She is desirous for stone manipulation and stent placement. She has signed an informed consent for these procedures, after all the risks were explained to her. PROCEDURE: Patient was brought to the operating room and placed on the operating room table in the supine position. SCDs were placed on her lower extremities and turned on and functioning during the entire case. Time out was done by all parties in the room. We all agreed upon the patient's identification and the planned procedures for this patient. General anesthesia was then administered via LMA. She was then repositioned into the modified dorsolithotomy position. All pressure points were satisfactorily padded. Genitalia were sterilely prepped and draped in the usual fashion. I started by passing a 22-Nepalese Olympus cystoscope per urethra and into the bladder. Estrada endoscopy in the bladder showed no evidence of any tumors or stones. While using fluoroscopy, I was unable to clearly see a stone along the course of the right ureter. I then passed a Glidewire through the scope and got it up into the kidney via the right ureter. I then could identify the stone at the L3 position. The scope was removed. I then passed a Navigator 01/15 ureteral access sheath over the wire and dilated the distal ureter. The sheath went up to L5. The stylette and wire were then removed. I then passed a flexible ureteroscope through the sheath and into the ureter, and ascended up the ureter a few centimeters, and was able to get right to the stone. One could see a strictured area just distal to the stone, thus preventing passage. I then used a 272 angstrom holmium laser fiber and passed this through the scope and made contact with the stone. I then used the dusting setting of the laser and started at 10 rowley continuously. We dusted some of the stone and we cracked it in half. These two pieces then propelled up into the kidney. I then advanced the scope and did pyeloscopy. One of the stone pieces was in the mid pole calyx. I was able to get into the calyx with the scope and dust this to completion. The other piece was in another lower pole calyx. I was able to get there and begin dusting, and then the piece fragmented to another piece. I then used the Zero-Tip Nitinol basket and extracted one of these pieces, and it was sent for stone analysis. I then continued dusting on the other piece, and visibility then became rather poor due to some mild oozing within the kidney. Using fluoroscopy, I was unable to appreciate any stones remaining within the kidney. The procedure had to be terminated at this time due to poor visibility. The scope was then removed. I then passed a Glidewire through the sheath, up into the kidney, and then removed the sheath. Cystoscope was backloaded over the wire and passed into the bladder. I then slid a 6-Nepalese variable length stent over the wire, up into the kidney. The wire was removed and there were good curls in the kidney and in the bladder. The bladder was drained of its consents and the scope was then removed. She was then transferred to a gurkanarraville bed and wheeled to PACU in stable condition.[id number] Discharge instructions Patient Education 03/27/2022 08:31:22 Dietary Guidelines to Help Prevent Kidney Stones Dietary Guidelines to Help Prevent Kidney Stones Kidney stones are deposits of minerals and salts that form inside your kidneys. Your risk of developing kidney stones may be greater depending on your diet, your lifestyle, the medicines you take, and whether you have certain medical conditions. Most people can reduce their chances of developing kidney stones by following the instructions below. Depending on your overall health and the type of kidney stones you tend to develop, your dietitian may give you more specific instructions. What are tips for following this plan? Reading food labels Choose foods with no salt added or low-salt labels. Limit your sodium intake to less than 1500 mg per day. Choose foods with calcium for each meal and snack. Try to eat about 300 mg of calcium at each meal.Foods that contain 200 500 mg of calcium per serving include: ?8 oz (237 ml) of milk, fortified nondairy milk, and fortified fruit juice. ?8 oz (237 ml) of kefir, yogurt, and soy yogurt. ?4 oz (118 ml) of tofu. ?1 oz of cheese. ?1 cup (300 g) of dried figs. ?1 cup (91 g) of cooked broccoli. ?1 3 oz can of sardines or mackerel. Most people need 1000 to 1500 mg of calcium each day. Talk to your dietitian about how much calciumis recommended for you. Shopping Buy plenty of fresh fruits and vegetables. Most people do not need to avoid fruits and vegetables, even if they contain nutrients that may contribute to kidney stones. When shopping for convenience foods, choose: ?Whole pieces of fruit. ?Premade salads with dressing on the side. ?Low-fat fruit and yogurt smoothies. Avoid buying frozen meals or prepared deli foods. Look for foods with live cultures, such as yogurt and kefir. Cooking Do not add salt to food when cooking. Place a salt shaker on the table and allow each person to addhis or her own salt to taste. Use vegetable protein, such as beans, textured vegetable protein (TVP), or tofu instead of meat in pasta, casseroles, and soups. Meal planning Eat less salt, if told by your dietitian. To do this: ?Avoid eating processed or premade food. ?Avoid eating fast food. Eat less animal protein, including cheese, meat, poultry, or fish, if told by your dietitian. To dothis: ?Limit the number of times you have meat, poultry, fish, or cheese each week. Eat a diet free of meat at least 2 days a week. ?Eat only one serving each day of meat, poultry, fish, or seafood. ?When you prepare animal protein, cut pieces into small portion sizes. For most meat and fish, one serving is about the size of one deck of cards. Eat at least 5 servings of fresh fruits and vegetables each day. To do this: ?Keep fruits and vegetables on hand for snacks. ?Eat 1 piece of fruit or a handful of berries with breakfast. ?Have a salad and fruit at lunch. ?Have two kinds of vegetables at dinner. Limit foods that are high in a substance called oxalate. These include: ?Spinach. ?Rhubarb. ?Beets. ?Potato chips and sammarinese fries. ?Nuts. If you regularly take a diuretic medicine, make sure to eat at least 1 2 fruits or vegetables high in potassium each day. These include: ?Avocado. ?Banana. ?[place], prune, carrot, or tomato juice. ?Baked potato. ?Cabbage. ?Beans and split peas. General instructions Drink enough fluid to keep your urine clear or pale yellow. This is the most important thing you can do. Talk to your health care provider and dietitian about taking daily supplements. Depending on your health and the cause of your kidney stones, you may be advised: ?Not to take supplements with vitamin C. ?To take a calcium supplement. ?To take a daily probiotic supplement. ?To take other supplements such as magnesium, fish oil, or vitamin B6. Take all medicines and supplements as told by your health care provider. Limit alcohol intake to no more than 1 drink a day for non women and 2 drinks a day for men. One drink equals 12 oz of beer, 5 oz of wine, or 1 oz of hard liquor. Lose weight if told by your health care provider. Work with your dietitian to find strategies and an eating plan that works best for you. What foods are not recommended? Limit your intake of the following foods, or as told by your dietitian. Talk to your dietitian about specific foods you should avoid based on the type of kidney stones and your overall health. Grains Breads. Bagels. Rolls. Baked goods. Salted crackers. Cereal. Pasta. Vegetables Spinach. Rhubarb. Beets. Canned vegetables. Pickles. Olives. Meats and other protein foods Nuts. Nut butters. Large portions of meat, poultry, or fish. Salted or cured meats. Deli meats. Hotdogs. Sausages. Dairy Cheese. Beverages Regular soft drinks. Regular vegetable juice. Seasonings and other foods Seasoning blends with salt. Salad dressings. Canned soups. Soy sauce. Ketchup. Barbecue sauce. Canned pasta sauce. Casseroles. Pizza. Lasagna. Frozen meals. Potato chips. Nepalese fries. Summary You can reduce your risk of kidney stones by making changes to your diet. The most important thing you can do is drink enough fluid. You should drink enough fluid to keep your urine clear or pale yellow. Ask your health care provider or dietitian how much protein from animal sources you should eat eachday, and also how much salt and calcium you should have each day. This information is not intended to replace advice given to you by your health care provider. Make sure you discuss any questions you have with your health care provider. Document Released: 06/16/2011 Document Revised: 06/11/2019 Document Reviewed: 01/30/2017 [employer] Patient Education 2020 [employer]. Follow Up Care 03/15/2022 15:42:49 With:JEFFERY TRUONG, Dean R, URL Address: [facility] [address] , [place] [address]- When: Unknown [facility] 01-11-2023 Hospital Discharge instructions Patient Education 03/15/2022 15:26:22 Dietary Guidelines to Help Prevent Kidney Stones Dietary Guidelines to Help Prevent Kidney Stones Kidney stones are deposits of minerals and salts that form inside your kidneys. Your risk of developing kidney stones may be greater depending on your diet, your lifestyle, the medicines you take, and whether you have certain medical conditions. Most people can reduce their chances of developing kidney stones by following the instructions below. Depending on your overall health and the type of kidney stones you tend to develop, your dietitian may give you more specific instructions. What are tips for following this plan? Reading food labels Choose foods with no salt added or low-salt labels. Limit your sodium intake to less than 1500 mg per day. Choose foods with calcium for each meal and snack. Try to eat about 300 mg of calcium at each meal.Foods that contain 200 500 mg of calcium per serving include: ?8 oz (237 ml) of milk, fortified nondairy milk, and fortified fruit juice. ?8 oz (237 ml) of kefir, yogurt, and soy yogurt. ?4 oz (118 ml) of tofu. ?1 oz of cheese. ?1 cup (300 g) of dried figs. ?1 cup (91 g) of cooked broccoli. ?1 3 oz can of sardines or mackerel. Most people need 1000 to 1500 mg of calcium each day. Talk to your dietitian about how much calciumis recommended for you. Shopping Buy plenty of fresh fruits and vegetables. Most people do not need to avoid fruits and vegetables, even if they contain nutrients that may contribute to kidney stones. When shopping for convenience foods, choose: ?Whole pieces of fruit. ?Premade salads with dressing on the side. ?Low-fat fruit and yogurt smoothies. Avoid buying frozen meals or prepared deli foods. Look for foods with live cultures, such as yogurt and kefir. Cooking Do not add salt to food when cooking. Place a salt shaker on the table and allow each person to addhis or her own salt to taste. Use vegetable protein, such as beans, textured vegetable protein (TVP), or tofu instead of meat in pasta, casseroles, and soups. Meal planning Eat less salt, if told by your dietitian. To do this: ?Avoid eating processed or premade food. ?Avoid eating fast food. Eat less animal protein, including cheese, meat, poultry, or fish, if told by your dietitian. To dothis: ?Limit the number of times you have meat, poultry, fish, or cheese each week. Eat a diet free of meat at least 2 days a week. ?Eat only one serving each day of meat, poultry, fish, or seafood. ?When you prepare animal protein, cut pieces into small portion sizes. For most meat and fish, one serving is about the size of one deck of cards. Eat at least 5 servings of fresh fruits and vegetables each day. To do this: ?Keep fruits and vegetables on hand for snacks. ?Eat 1 piece of fruit or a handful of berries with breakfast. ?Have a salad and fruit at lunch. ?Have two kinds of vegetables at dinner. Limit foods that are high in a substance called oxalate. These include: ?Spinach. ?Rhubarb. ?Beets. ?Potato chips and sammarinese fries. ?Nuts. If you regularly take a diuretic medicine, make sure to eat at least 1 2 fruits or vegetables high in potassium each day. These include: ?Avocado. ?Banana. ?[place], prune, carrot, or tomato juice. ?Baked potato. ?Cabbage. ?Beans and split peas. General instructions Drink enough fluid to keep your urine clear or pale yellow. This is the most important thing you can do. Talk to your health care provider and dietitian about taking daily supplements. Depending on your health and the cause of your kidney stones, you may be advised: ?Not to take supplements with vitamin C. ?To take a calcium supplement. ?To take a daily probiotic supplement. ?To take other supplements such as magnesium, fish oil, or vitamin B6. Take all medicines and supplements as told by your health care provider. Limit alcohol intake to no more than 1 drink a day for non women and 2 drinks a day for men. One drink equals 12 oz of beer, 5 oz of wine, or 1 oz of hard liquor. Lose weight if told by your health care provider. Work with your dietitian to find strategies and an eating plan that works best for you. What foods are not recommended? Limit your intake of the following foods, or as told by your dietitian. Talk to your dietitian about specific foods you should avoid based on the type of kidney stones and your overall health. Grains Breads. Bagels. Rolls. Baked goods. Salted crackers. Cereal. Pasta. Vegetables Spinach. Rhubarb. Beets. Canned vegetables. Pickles. Olives. Meats and other protein foods Nuts. Nut butters. Large portions of meat, poultry, or fish. Salted or cured meats. Deli meats. Hotdogs. Sausages. Dairy Cheese. Beverages Regular soft drinks. Regular vegetable juice. Seasonings and other foods Seasoning blends with salt. Salad dressings. Canned soups. Soy sauce. Ketchup. Barbecue sauce. Canned pasta sauce. Casseroles. Pizza. Lasagna. Frozen meals. Potato chips. Nepalese fries. Summary You can reduce your risk of kidney stones by making changes to your diet. The most important thing you can do is drink enough fluid. You should drink enough fluid to keep your urine clear or pale yellow. Ask your health care provider or dietitian how much protein from animal sources you should eat eachday, and also how much salt and calcium you should have each day. This information is not intended to replace advice given to you by your health care provider. Make sure you discuss any questions you have with your health care provider. Document Released: 06/16/2011 Document Revised: 06/11/2019 Document Reviewed: 01/30/2017 [employer] Patient Education 2020 [employer]. Follow Up Care 03/10/2022 10:14:13 With:JEFFERY TRUONG, Dean Beach, URL Address: [facility] [address] , [place] [address]- When: Unknown [facility] 11-04-2022 NoteOPERATIVE NOTE OPERATION DATE: 01/06/2022 PROCEDURE: VNOTES hysterectomy. PREOPERATIVE DIAGNOSIS: Dyspareunia, dysmenorrhea, menorrhagia, pelvic pain. POSTOPERATIVE DIAGNOSIS: Dyspareunia, dysmenorrhea, menorrhagia, pelvic pain. ANESTHESIA: General. SURGEON: Antoni Johnson D.O. CALENDER OPERATOR HELPER: MARK Coleman URINE OUTPUT: Yellow and clear. BLOOD LOSS: 300 mL. SPECIMEN: Uterus and tubes. PROCEDURE: Patient was brought back to the operating room where she was given general anesthesia. She was placed in the dorsolithotomy position, after being prepped and draped in a sterile fashion. A Crews catheter was placed. A weighted speculum was placed posterior in the vagina. The cervix was grasped anteriorly and posteriorly with two single tooth tenaculums and placed on traction. A solution of Marcaine, lidocaine and epinephrine and saline was liberally infiltrated into the cervical vaginal junction. The knife was then used to circumscribe the cervical vaginal junction and the posterior cul-de-sac was sharply entered without difficulty. A long weighted duck tail speculum was placed and the peritoneum was tacked to the vaginal epithelium. We then turned our attention to the uterosacral ligaments which were bilaterally cross clamped, transected and suture ligated and then were held with hemostats. Attention was then turned to the anterior compartment, where the cervical vaginal junction was similarly divided, and the bladder was then sharply and bluntly dissected off the cervix and the lower uterine segment, and the anterior cul-de- sac was sharply entered. The vaginal epithelium was tacked to the peritoneum. Lateral attachments of the uterus were secured with Soni clamps and suture ligated. The retractors were then removed and were placed by the path inner ring anteriorly followed by posteriorly. Once the ring was seated, the gel cap was placed and the laparoscopic ports were placed through this cap and the gas was allowed to insufflate the pelvis. A GynLap was placed posteriorly to facilitate mobilization of the bowel, control bleeding. This was later retrieved. The LigaSure device was used to secure the lateral attachments of the uterus on the left side, including the cardinal ligaments and the uterine vasculature. Once the utero-ovarian ligament was reached, we turned our attention to the right side where the LigaSure device was used to fully detach the uterus from the pelvic side wall. The ureters were seen visually; before, during and after the pedicles were created. The ureters were bilaterally in normal locations, peristalsing. Please note that the right and left ovary were already removed and were not visualized. Please note that the LigaSure was used on the patient's left side to fully detach the uterus from the pelvic side wall. The uterus was removed from the field. The GynLap was also removed from the field. The inner ring and gel port caps were removed and the vaginal retractors were replaced. Lateral figure of eight sutures were placed bilaterally, where bleeding occurred, behind the ring, and no further sutures were needed. The colpopexy was then carried out, passing a stitch posteriorly to the vaginal wall, capturing the left uterosacral ligament, going across the peritoneum posteriorly to the right and exiting out the vaginal wall posteriorly. The vaginal cuff was closed in a single running locked stitch using 0 Monocryl, and the uterosacral ligaments were cut. Once the vaginal cuff was fully closed, the uterosacral colpopexy stitch was then tied down tightly, elevating the vaginal cuff to the uterosacral ligaments in a satisfactory manner. The Crews catheter was removed and the patient was awakened and taken to recovery in excellent condition. Sponge, lap and instruments counts correct x2. (Dr. Johnson did not state whether to take out the colpopexy portion of the procedure, but this is the way the template was dictated, so unsure if he wanted it left in or not. Please advise.)[facility] Future Appointments Appointment Date:03/27/2022 11:45:00 AM Scheduled Provider:Dean GIL MD Location:[facility] Appointment Type:URO Office Visit [facility] Evaluation + Plan note Future Appointments Appointment Date:10/09/2022 09:30:00 AM Scheduled Provider:Dean GIL MD Location:[facility] Appointment Date:10/12/2023 08:15:00 AM Scheduled Provider:Dean GIL MD Location:[facility] Appointment Type:URO Office Visit [facility] evaluation note* Diagnosis Type 2 diabetes mellitus without complication, without long-term current use of insulin ([facility]) Essential hypertension Unspecified essential hypertension Type 2 diabetes mellitus without complications ([facility]) Anxiety Anxiety state, unspecified [facility] Diagnosis Hypothyroidism, unspecified [facility] Diagnosis Type 2 diabetes mellitus without complication, without long-term current use of insulin ([facility]) [facility]* Diagnosis Mixed hyperlipidemia documented in [facility]* Diagnosis Type 2 diabetes mellitus without complications (CMS-HCC) documented [facility]* Diagnosis Type 2 diabetes mellitus without complication, without long-term current use of insulin (CMS-HCC) documented [facility]* Diagnosis Hypothyroidism, unspecified documented [facility]* Diagnosis Mixed hyperlipidemia Type 2 diabetes mellitus without complications (CMS-HCC) documented [facility]* Diagnosis Anxiety Anxiety state, unspecified Mixed hyperlipidemia Type 2 diabetes mellitus without complications ([facility]) [facility]* Diagnosis Type 2 diabetes mellitus without complication, without long-term current use of insulin ([facility]) Essential hypertension Unspecified essential hypertension Anxiety Anxiety state, unspecified documented [facility]* Diagnosis Mixed hyperlipidemia documented in [facility] encounter [facility]* Diagnosis Mixed hyperlipidemia documented [facility]* Diagnosis Well adult health check- Primary Unspecified general medical examination Type 2 diabetes mellitus without complication, without long-term current use of insulin ([facility]) Essential hypertension Unspecified essential hypertension Mixed hyperlipidemia Vitamin D deficiency 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, left Encounter for screening mammogram for malignant neoplasm of breast Need for immunization against influenza Need for prophylactic vaccination and inoculation against influenza Acquired hypothyroidism Unspecified hypothyroidism Class 1 obesity due to excess calories with serious comorbidity and body mass index (BMI) of 34.0 to 34.9 in adult documented in this encounter [facility]* Diagnosis Hypothyroidism, unspecified documented [facility]* Diagnosis Mixed hyperlipidemia documented in [facility] encounter [facility]* Diagnosis Hypothyroidism, unspecified documented [facility]* Diagnosis Strain of calf muscle, left, initial encounter- Primary documented in [facility] encounter [facility]* Diagnosis Well adult exam- Primary Routine general medical examination at a health care facility Type 2 diabetes mellitus without complication, without long-term current use of insulin ([facility]) Acquired hypothyroidism Unspecified hypothyroidism Essential hypertension Unspecified essential hypertension Class 2 severe obesity due to excess calories with serious comorbidity and body mass index (BMI) of38.0 to 38.9 in adult Paresthesia and pain of both upper extremities Need for Streptococcus pneumoniae vaccination Need for pneumococcal vaccine Need for prophylactic vaccination against streptococcus pneumoniae (pneumococcus) Need for immunization against influenza Need for prophylactic vaccination and inoculation against influenza documented [facility] Narrative No data available for this section [facility] [place] InstructionsNot on filedocumented in this encounter [facility] filedocumented in this [facility] filedocumented in this encounter [facility]ructionsNot on filedocumented in this encounter [facility]ructionsNot on filedocumented in this encounter [facility]ructionsNot on filedocumented in this encounter [facility] on filedocumented in this encounter [facility]ructionsNot on filedocumented in this encounter [facility]ructionsNot on filedocumented in this encounter [facility]ructionsNot on filedocumented in this encounter [facility]InstructionsNot on filedocumented in this encounter [facility] SystemInstructionsNot on filedocumented in this encounter [facility] SystemInstructionsNot on filedocumented in this encounter [facility] SystemInstructionsNot on filedocumented in this encounter [facility] No data available for this section [facility] [place] Summary Purpose Family History No Family History Records FoundNo Family History Records Found No data available for this section No Family History Records FoundNo Family History Records FoundNo Family History Records FoundNo Family History Records Found Advance Directives No Advanced Directives Records FoundNo Advanced Directives Records FoundNo Advanced Directives Records FoundNo Advanced Directives Records FoundNo Advanced Directives Records FoundNo Advanced Directives Records Found Additional Source Comments INFORMATION SOURCE (unrecogn ized section and content) DATE CREATED AUTHOR 04/19/2021 [facility] DATE CREATED AUTHOR AUTHOR'S ORGANIZ ATION 04/14/2022 [facility] DATE CREATED AUTHOR AUTHOR'S ORGANIZ ATION 10/14/2023 [facility] DATE CREATED AUTHOR AUTHOR'S ORGANIZ ATION 12/23/2023 [facility] DATE CREATED AUTHOR AUTHOR'S ORGANIZ ATION 06/12/2024 [facility] DATE CREATED AUTHOR AUTHOR'S ORGANIZ ATION 01/06/2025 [facility] Patient Care team informatio n (unrecognized section and content) Team MemberRelationshipSpecialtyStart DateEnd Date Ritchie Chaidez DO [address], [place] [address] PCP - [facility] Aolqkdip00/16/19Team MemberRelationshipSpecialtyStart Date End Date Ritchie Chaidez DO [address], [place] [address] [facility]/17/19Team MemberRelationshipSpecialtyStart Date End Date Ritchie Chaidez DO [address], [place] [address] PCP - [facility]02/17/19Team MemberRelationshipSpecialtyStart Date End Date Ritchie Chaidez DO [address], [place] [address] PCP - [facility] Ojafldjy99/16/19Team MemberRelationshipSpecialtyStart Date End Date Ritchie Chaidez DO [address], [place] [address] PCP - [facility] Hqopnuut96/16/19Team MemberRelationshipSpecialtyStart Date End Date Ritchie Chaidez DO [address], [place] [address] PCP - [facility]/17/19Team MemberRelationshipSpecialtyStart Date End Date Ritchie Chaidez DO [address], [place] [address] PCP - GeneralFamily Puqpewoq64/16/19Team MemberRelationshipSpecialtyStart Date End Date Ritchie Chaidez DO [address], [place] [address] PCP - GeneralFamily Mowuseaq46/16/19Team MemberRelationshipSpecialtyStart Date End Date Ritchie Chaidez DO [address], [place] [address] PCP - GeneralFamily Kyonhslg83/16/19Team MemberRelationshipSpecialtyStart Date End Date Ritchie Chaidez DO [address], [place] [address] PCP - GeneralFamily Wytswcsh74/16/19Team MemberRelationshipSpecialtyStart Date End Date Ritchie Chaidez DO [address], [place] [address] PCP - GeneralFamily Igclbphw96/16/19Team MemberRelationshipSpecialtyStart Date End Date Ritchie Chaidez DO [address], [place] [address] PCP - GeneralFamily Kdvxnjpa81/16/19Team MemberRelationshipSpecialtyStart Date End Date Ritchie Chaidez DO [address], [place] [address] PCP - GeneralFamily Hlxptnhy86/16/19Team MemberRelationshipSpecialtyStart Date End Date Ritchie Chaidez DO [address] [place] [address] PCP - GeneralFamily Xzrlfiyk39/16/19Team MemberRelationshipSpecialtyStart Date End Date Ritchie Chaidez DO [address] [place] [address] [facility] Zdyqgmnn62/16/19 Reason for Visit (unrecogniz ed section and content) ReasonCommentsMed RefillReasonOnset DateCommentsMed [id number] DateCommentsMed [id number] DateCommentsMed Rlcloe3511/12/2023 ReasonOnset DateCommentsMed [id number] DateCommentsMed Refill 4ReasonCommentsAnnual ExamPossible menopausal?ReasonCommentsLeg Pain Left calf pain. 08/25= walking pain scale 8ReasonCommentsAnnual ExamFlu shot. FOR RECORDS PERTAINING TO PATIENTS WHO ARE OR HAVE BEEN ENROLLED IN A CHEMICAL DEPENDENCY/SUBSTANCEABUSE PROGRAM, SOME INFORMATION MAY BE OMITTED. This clinical summary was aggregated from multiple sources. Caution should be exercised in using it in the provision of clinical care. This summary normalizes information from multiple sources, and as a consequence, information in this document may materially change the coding, format and clinical context of patient data. In addition, data may be omitted in some cases. CLINICAL DECISIONS SHOULD BE BASED ON THE PRIMARY CLINICAL RECORDS. [facility]. provides no warranty or guarantee of the accuracy or completeness of information in this document.
== END 2025-01-20 19:34 | disposition home or self-care (01) ==
LOC: LAB 19:33
PROVIDERS: PCP Family Medicine; Visit Provider Obstetrics & Gynecology
DX: Z01.419 Encounter for gynecological examination (general) (routine) without abnormal findings (principal)
CPT/HCPCS: 87624; 88175